=== PATIENT | female | born 1955 | race African-American/Black ===

== ENCOUNTER 2023-11-04 12:38 | Inpatient (IN) | payer MEDICARE, MEDICAID ==
[~2023-11-04] VITALS: Ht 177.8 cm; Wt 70.0 kg
[2023-11-04 15:21] LABS: Basophils # (auto) 0 10 ^3/uL (0-0.2); Basophils % (auto) 0.6 % (0.0-2.0); Eosinophils # (auto) 0.1 10 ^3/uL (0-0.8); Hematocrit 27.4 % (36.0-46.0); Hemoglobin 8.9 g/dL (12.2-16.2); Lymphocytes # (auto) 1.4 10 ^3/uL (0.4-5.4); Mean Corpuscular Hgb Conc. 32.4 g/dL (32.0-36.0); Mean Corpuscular Volume 86.4 fL (80.0-100.0); Monocytes # (auto) 0.4 10 ^3/uL (0-1.3); Monocytes % (auto) 5.6 % (0.0-12.0); Neutrophils # (auto) 5.7 10 ^3/uL (1.6-8.6); Neutrophils % (auto) 74.8 % (37.0-80.0); Nucleated Red Blood Cells % 0.1 %; Red Blood Cells 3.16 10^6/uL (4.0-5.20); Red Cell Distribution Width 17.8 % (11.8-14.3); White Blood Cell 7.6 10^3/uL (4.4-10.8)
[2023-11-04 15:39] LABS: Albumin 3.9 g/dL (3.2-4.8); Alkaline Phosphatase 139 U/L (46-116); Anion Gap 15 (5-15); Aspartate Aminotransferase 15 U/L (13-40); BUN/Creatinine Ratio 5.7 (10.0-20.0); Bilirubin, Total < 0.2 mg/dL (0.2-1.0); Blood Urea Nitrogen 65 mg/dL (9-23); Calcium 9.5 mg/dL (8.5-10.1); Carbon Dioxide 23 mmol/L (20-30); Chloride 100 mmol/L (98-107); Glucose 76 mg/dL (74-106); Potassium 5.3 mmol/L (3.5-5.1); Sodium 138 mmol/L (136-145); Total Protein 7.4 g/dL (5.7-8.2)
[2023-11-04 15:40] LABS: Alanine Aminotransferase < 9 U/L (7-40)
[2023-11-04] MEDS: ONDANSETRON ODT 4 MG TAB PO ONE (15:58)
[2023-11-04] MEDS: DICYCLOMINE HCL (10MG/ML) 2 ML AMPULE IM ONE (15:58)
[2023-11-04] MEDS ORDERED: MORPHINE SULFATE INJ 2 MG/ml SYRG IV PRN (16:15)
[2023-11-04] MEDS ORDERED: ACETAMINOPHEN 325 MG TAB PO PRN (16:15)
[2023-11-04] MEDS ORDERED: NITROGLYCERIN 0.4 MG SL TAB SL PRN (16:15)
[2023-11-04] MEDS: ALBUTEROL SULF 2.5 MG/0.5ML(0.5%) NEB SOLN NEB ONE (16:47)
[2023-11-04] MEDS ORDERED: ONDANSETRON HCL 4 MG/2 ML VIAL IV PRN (17:00)
[2023-11-04 17:50] VITALS: PULSE 91; RESP 17; O2SAT 97
[2023-11-04] MEDS: CALCIUM GLUC 1,000mg/50ml-NS 50 ML IV ONE (18:22)
[2023-11-04] MEDS: DEXTROSE (50%) 50ML SYRG IV ONE (18:23)
[2023-11-04] MEDS: SODIUM BICARB 8.4% 50Meq/50ml SYR Vial IV ONE (18:23)
[2023-11-04] MEDS: FUROSEMIDE 40 MG/4 ML VIAL IV ONE (18:24)
[2023-11-04] MEDS: SODIUM ZIRCONIUM CYCL 10 GM PAK PO ONE (18:24)
[2023-11-04] MEDS: InsuLIN REG 1unit/0.01ml Soln (100units/ml) IV ONE (18:25)
[2023-11-04 18:50] LABS: COVID19 ANTIGEN SOFIA FIA NEGATIVE (NEGATIVE)
[2023-11-04 19:30] VITALS: PULSE 95; RESP 20; O2SAT 96
[2023-11-04] MEDS: HYDROcodone-ACET 5/325MG TAB PO PRN (21:28)
[2023-11-05 06:06] LABS: Basophils # (auto) 0.1 10 ^3/uL (0-0.2); Basophils % (auto) 1.2 % (0.0-2.0); Eosinophils # (auto) 0.2 10 ^3/uL (0-0.8); Eosinophils % (auto) 3.7 % (0.0-7.0); Hematocrit 23.4 % (36.0-46.0); Hemoglobin 7.6 g/dL (12.2-16.2); Lymphocytes % (auto) 30.7 % (10.0-50.0); Mean Corpuscular Hemoglobin 27.9 pg (28.0-32.0); Mean Corpuscular Hgb Conc. 32.4 g/dL (32.0-36.0); Mean Corpuscular Volume 86.2 fL (80.0-100.0); Monocytes # (auto) 0.6 10 ^3/uL (0-1.3); Monocytes % (auto) 9.3 % (0.0-12.0); Neutrophils # (auto) 3.5 10 ^3/uL (1.6-8.6); Neutrophils % (auto) 55.1 % (37.0-80.0); Nucleated Red Blood Cells % 0.1 %; Red Blood Cells 2.71 10^6/uL (4.0-5.20); Red Cell Distribution Width 17.3 % (11.8-14.3); White Blood Cell 6.4 10^3/uL (4.4-10.8)
[2023-11-05 06:15] LABS: Albumin 3.3 g/dL (3.2-4.8); Alkaline Phosphatase 111 U/L (46-116); Anion Gap 11 (5-15); Aspartate Aminotransferase 11 U/L (13-40); BUN/Creatinine Ratio 4.8 (10.0-20.0); Blood Urea Nitrogen 57 mg/dL (9-23); Calcium 8.3 mg/dL (8.7-10.4); Carbon Dioxide 27 mmol/L (20-30); Chloride 99 mmol/L (98-107); Glucose 102 mg/dL (74-106); Potassium 4.8 mmol/L (3.5-5.1); Sodium 137 mmol/L (136-145)
[2023-11-05 06:16] LABS: Bilirubin, Total < 0.2 mg/dL (0.2-1.0); Total Protein 6.6 g/dL (5.7-8.2)
[2023-11-05 06:46] LABS: Alanine Aminotransferase < 9 U/L (7-40)
[2023-11-05 07:35] VITALS: PULSE 91; RESP 12; O2SAT 99
[2023-11-05 09:00] VITALS: BP 132/71; PULSE 87; RESP 15; TEMP 98; O2SAT 99
[2023-11-05 10:00] VITALS: RESP 18
[2023-11-05] MEDS ORDERED: PERCOT PO (12:36)
[2023-11-05] MEDS ORDERED: CLON0.2T PO (12:36)
[2023-11-05] MEDS ORDERED: AMLO1TAB22 PO (12:36)
[2023-11-05] MEDS: HYDROcodone-ACET 5/325MG TAB PO PRN (16:12)
[2023-11-05 17:00] VITALS: BP 133/75; PULSE 87; RESP 18; TEMP 98.1; O2SAT 95
[2023-11-05] MEDS: ONDANSETRON HCL 4 MG/2 ML VIAL IV PRN (17:26)
[2023-11-05 20:00] VITALS: PULSE 85; PULSE 88
[2023-11-05 22:00] VITALS: BP 142/70; PULSE 95; RESP 22; TEMP 98.1; O2SAT 96
[2023-11-06] VITALS (7 sets, daily range): BP systolic 146–152; BP diastolic 71–84; PULSE 88–92; RESP 16–22; TEMP 97.7–98.3; O2SAT 92–94
[2023-11-06 11:08] LABS: Basophils # (auto) 0 10 ^3/uL (0-0.2); Basophils % (auto) 0.7 % (0.0-2.0); Eosinophils # (auto) 0.3 10 ^3/uL (0-0.8); Eosinophils % (auto) 5.5 % (0.0-7.0); Hematocrit 26.5 % (36.0-46.0); Hemoglobin 8.5 g/dL (12.2-16.2); Lymphocytes # (auto) 1.4 10 ^3/uL (0.4-5.4); Lymphocytes % (auto) 22.8 % (10.0-50.0); Mean Corpuscular Hemoglobin 28.2 pg (28.0-32.0); Mean Corpuscular Hgb Conc. 32.1 g/dL (32.0-36.0); Mean Corpuscular Volume 87.8 fL (80.0-100.0); Monocytes # (auto) 0.5 10 ^3/uL (0-1.3); Monocytes % (auto) 8.5 % (0.0-12.0); Neutrophils # (auto) 3.8 10 ^3/uL (1.6-8.6); Neutrophils % (auto) 62.5 % (37.0-80.0); Nucleated Red Blood Cells % 0.1 %; Red Blood Cells 3.02 10^6/uL (4.0-5.20); Red Cell Distribution Width 17.8 % (11.8-14.3); White Blood Cell 6.1 10^3/uL (4.4-10.8)
[2023-11-06] MEDS: SODIUM CHL 0.9% 1000 ML BAG XX ONE (11:45)
[2023-11-07] VITALS (9 sets, daily range): BP systolic 142–159; BP diastolic 77–89; PULSE 87–97; RESP 16–17; TEMP 97.6–98.6; O2SAT 93–98
[2023-11-07 09:08] LABS: Hepatitis B Surface Antigen Negative (Negative)
[2023-11-07 09:29] LABS: Hepatitis A Ab IgM Negative
[2023-11-07 09:30] LABS: Hepatitis B Core IgM Negative; Hepatitis C Antibody Negative (Negative)
[2023-11-08] VITALS (9 sets, daily range): BP systolic 143–159; BP diastolic 76–88; PULSE 75–96; RESP 16–18; TEMP 97.6–98.4; O2SAT 93–100
[2023-11-08] MEDS: amLODIPine BESYLATE 5 MG TAB PO ONE (10:00)
[2023-11-08] MEDS ORDERED: amLODIPine BESYLATE 5 MG TAB PO SCH (10:00)
[2023-11-08 11:08] LABS: Basophils # (auto) 0 10 ^3/uL (0-0.2); Basophils % (auto) 0.8 % (0.0-2.0); Eosinophils # (auto) 0.2 10 ^3/uL (0-0.8); Hematocrit 26.9 % (36.0-46.0); Lymphocytes # (auto) 1.3 10 ^3/uL (0.4-5.4); Lymphocytes % (auto) 26.5 % (10.0-50.0); Mean Corpuscular Hemoglobin 28.5 pg (28.0-32.0); Mean Corpuscular Hgb Conc. 33.5 g/dL (32.0-36.0); Mean Corpuscular Volume 84.9 fL (80.0-100.0); Monocytes # (auto) 0.4 10 ^3/uL (0-1.3); Monocytes % (auto) 7.3 % (0.0-12.0); Neutrophils % (auto) 60.4 % (37.0-80.0); Nucleated Red Blood Cells % 0.1 %; Red Blood Cells 3.17 10^6/uL (4.0-5.20); Red Cell Distribution Width 17.2 % (11.8-14.3); White Blood Cell 4.9 10^3/uL (4.4-10.8)
[2023-11-08 11:21] LABS: Albumin 3.5 g/dL (3.2-4.8); Alkaline Phosphatase 116 U/L (46-116); Anion Gap 8 (5-15); Aspartate Aminotransferase 13 U/L (13-40); BUN/Creatinine Ratio 5.2 (10.0-20.0); Bilirubin, Total < 0.2 mg/dL (0.2-1.0); Blood Urea Nitrogen 59 mg/dL (9-23); Calcium 9.2 mg/dL (8.5-10.1); Carbon Dioxide 28 mmol/L (20-30); Chloride 99 mmol/L (98-107); Glucose 95 mg/dL (74-106); Potassium 4.9 mmol/L (3.5-5.1); Sodium 135 mmol/L (136-145); Total Protein 6.7 g/dL (5.7-8.2)
[2023-11-08 11:33] LABS: Alanine Aminotransferase < 9 U/L (7-40)
[2023-11-08] MEDS: SODIUM CHL 0.9% 1000 ML BAG XX ONE (14:00)
[2023-11-08] MEDS: OXYCODONE W/ ACETAMINOPHEN 5/325MG TABLET PO PRN (14:09)
[2023-11-08] MEDS: cloNIDine HCL 0.1 MG TAB PO SCH (22:14)
[2023-11-08] MEDS: EPOETIN ALFA-EPBX 10,000 UNIT/1ML VIAL SC ONE (22:15)
[2023-11-09 04:44] LABS: COVID19 ANTIGEN SOFIA FIA NEGATIVE (NEGATIVE)
[2023-11-09 05:00] VITALS: BP 150/82; PULSE 84; RESP 18; TEMP 98.4; O2SAT 98
[2023-11-09 08:00] VITALS: PULSE 89
[2023-11-09 08:03] VITALS: O2SAT 95
[2023-11-09] MEDS: amLODIPine BESYLATE 5 MG TAB PO SCH (08:33)
[2023-11-09] MEDS: LACTULOSE 20Gm/30ML SOLN PO ONE (10:24)
[2023-11-09 12:31] VITALS: BP 125/62; PULSE 80; RESP 19; TEMP 98; O2SAT 100
[2023-11-09 17:06] VITALS: BP 136/76; PULSE 83; RESP 19; TEMP 98.2; O2SAT 98
[2023-11-09 22:00] VITALS: BP 153/84; PULSE 85; RESP 17; TEMP 98.3; O2SAT 97
[2023-11-10 05:00] VITALS: BP 153/88; PULSE 82; RESP 17; TEMP 98.1; O2SAT 97
[2023-11-10 08:00] VITALS: PULSE 88; RESP 18; O2SAT 98
[2023-11-10 08:05] VITALS: BP 160/90; PULSE 88; RESP 20; TEMP 98.4; O2SAT 98
[2023-11-10 12:05] VITALS: BP 150/86; PULSE 86; RESP 20; TEMP 98.2; O2SAT 99
[2023-11-10 16:05] VITALS: BP 143/76; PULSE 82; RESP 20; TEMP 98.9; O2SAT 97
[2023-11-10 20:00] VITALS: PULSE 82; RESP 18; O2SAT 98
== END 2023-11-10 20:27 | DRG 640 ==
LOC: ER 12:38 → TELE 16:17 → TELE-CENTR 11-05 10:02
PROVIDERS: ADMIT Nurse Practitioner Family; ATTEND Family Medicine
PROC: 5A1D70Z Performance of Urinary Filtration, Intermittent, Less than 6 Hours Per Day (ICD-10-PCS; principal; 2023-11-06)
PROC: 5A1D70Z Performance of Urinary Filtration, Intermittent, Less than 6 Hours Per Day (ICD-10-PCS; 2023-11-08)
PROC: 5A1D70Z Performance of Urinary Filtration, Intermittent, Less than 6 Hours Per Day (ICD-10-PCS; 2023-11-10)
DX: E87.5 Hyperkalemia (principal); N18.6 End stage renal disease; I13.2 Hypertensive heart and chronic kidney disease with heart failure and with stage 5 chronic kidney disease, or end stage renal disease; N25.81 Secondary hyperparathyroidism of renal origin; E86.0 Dehydration; K52.9 Noninfective gastroenteritis and colitis, unspecified; Z99.2 Dependence on renal dialysis; D63.1 Anemia in chronic kidney disease; Z20.822 Contact with and (suspected) exposure to COVID-19; M19.90 Unspecified osteoarthritis, unspecified site; Z96.651 Presence of right artificial knee joint; I50.9 Heart failure, unspecified; M54.2 Cervicalgia; G89.29 Other chronic pain; M75.101 Unspecified rotator cuff tear or rupture of right shoulder, not specified as traumatic
CPT/HCPCS: 36415; 71045; 80053; 80074; 82962; 84132; 84484; 85025; 87081; 87426; 90935; 93005; 94640; 97110; 97116; 97163; 97530; 99291; G0378; J1642; J1815; J2405; Q0162

== ENCOUNTER 2024-09-22 18:42 | Emergency (ER) | payer MEDICARE, MEDICAID ==
[~2024-09-22] VITALS: Ht 177.8 cm; Wt 65.5 kg
[~2024-09-22 18:42] MED LIST: AMLO1TAB22 PO; CLON0.2T PO; PERCOT PO
--- NOTE | 2024-09-22 18:58 | ED.PDOC ---
HPI Comments 69 year old female brought in by EMS presents to the ED with a chief complaint of chest pain onset today. Per EMS, patient was at [facility] when she began experiencing chest pain as well as shortness of breath and headache. Upon EMS arrival patient's BP was 220/110, patient was given Aspirin and Nitro and BP was 171/93. Past medical history of ESRD, CVA, HTN, CKF. Denies dizziness, abdominal pain, nausea, vomiting, diarrhea, dysuria, hematuria. No other symptoms or modifying factors present at this time. Time Seen by MD: 18:50 Primary Care Provider: STEFANY Welch Notes: Medications, Allergies Allergies: Coded Allergies: NO KNOWN ALLERGIES (Unverified , 11/04/23) Home Meds Active Scripts Gabapentin (Once-Daily) (Gabapentin) 300 Mg Tab, 300 MG PO Q6HP PRN for 10 Days, #40 TAB Prov:TITA ALMAGUER MD 09/22/24 Clonidine Hydrochloride (Clonidine Hcl) 0.2 Mg Tab, 1 TAB PO BIDP PRN, #20 TAB 0 Refills Prov:SHANEL PATRICIA PAC 12/14/23 Reported Medications Oxycodone W/ Acetaminophen (Percocet 5/325MG) 1 Tab Tb, 1 TAB PO 6XD for pain, TAB 11/05/23 Clonidine Hydrochloride (Clonidine Hcl) 0.2 Mg Tab, 0.2 MG PO TID, TAB 11/05/23 Amlodipine Besylate (Amlodipine Besylate) 5 Mg Tab, 10 MG PO DAILY for 30 Days, MG 11/05/23 Information Source: Patient, Emergency Med Personnel Mode of Arrival: EMS Severity: Moderate Timing: Hours Duration: Since onset Prehospital treatment: Other (Aspirin, Nitro) Location: Chest (L) Radiation: No Radiation Quality: Sharp Cardiac Risk Factors: HTN PE Risk Factors: None History of: None Modifying Factors: Nothing Associated Signs and Symptoms: SOB Past Medical History PAST MEDICAL HISTORY: CKF, CVA, ESRD, HTN Surgical History: Denies all surgeries FINANCE TEACHER History: No Pertinent FINANCE TEACHER History Family History Family History: Unknown Social History Smoker: Non-Smoker Alcohol: Denies ETOH Use Drugs: Denies Drug Use Lives In: Home Constitutional: denies: chills, diaphoresis, fatigue, fever, malaise, sweats, weakness, others EENTM: denies: blurred vision, double vision, ear bleeding, ear discharge, ear drainage, ear pain, ear ringing, eye pain, eye redness, hearing loss, mouth pain, mouth swelling, nasal discharge, nose bleeding, nose congestion, nose pain, photophobia, tearing, throat pain, throat swelling, voice changes, others Respiratory: reports: shortness of breath; denies: cough, hemoptysis, orthopnea, SOB at rest, SOB with excertion, stridor, wheezing, others Cardiovascular: reports: chest pain; denies: dizzy spells, diaphoresis, Dyspnea on exertion, edema, irregular heart beat, left arm pain, lightheadedness, palpit ations, PND, syncope, others Gastrointestinal: denies: abdomen distended, abdominal pain, blood streaked b owels, constipated, diarrhea, dysphagia, difficulty swallowing, hematemesis, melena, nausea, poor appetite, poor fluid intake, rectal bleeding, rectal pain, vomiting, others Genitourinary: denies: abnormal vagina bleeding, burning, dyspareunia, dysuria, flank pain, frequency, hematuria, incontinence, pain, , vagina discharge, urgency, others Neurological: reports: headache; denies: dizziness, fainting, left sided numbness, left sided weakness, numbness, paresthesia, pre-existing deficit, right sided numbness, right sided weakness, seizure, speech problems, tingling, tremors, weakness, others Musculoskeletal: denies: back pain, gout, joint pain, joint swelling, muscle pain, muscle stiffness, neck pain, others Integumetry: denies: bruises, change in color, change in hair/nails, dryness, laceration, lesions, lumps, rash, wounds, others Allergic/Immunocompromised: denies: Difficulty Healing, Frequent Infections, Hives, Itching, others Hematologic/Lymphatic: denies: anemia, blood clots, easy bleeding, easy bruising, swollen glands, others Endocrine: denies: excessive hunger, excessive sweating, excessive thirst, excessive urination, flushing, intolerance to cold, intolerance to heat, unexplained weight gain, unexplained weight loss, others Psychiatric: denies: anxiety, bipolar disorder, depression, hopeless, panic disorder, schizophrenia, sleepless, suicidal, others All Other Systems: Reviewed and Negative Physical Exam General Appearance: Mild Distress HEENT: Normal ENT Inspection, Pharynx Normal, TMs Normal Neck: Full Range of Motion, Non-Tender, Normal, Normal Inspection Respiratory: Chest Non-Tender, Lungs Clear, No Accessory Muscle Use, No Respiratory Distress, Normal Breath Sounds Cardiovascular: Regular Rate/Rhythm, Other (dialysis catheter right chest) Breast Exam: Deferred Gastrointestinal: No Organomegaly, Non Tender, No Pulsatile Mass, Normal Bowel Sounds, Soft Genitalia: Deferred Pelvic: Deferred Rectal: Deferred Extremities: No calf tenderness, Normal capillary refill, Normal inspection, Normal range of motion, Non-tender, No pedal edema Musculoskeletal : Apperance: Normal Neurologic: Alert, sole tacker II-XII nml as Tested, No Motor Deficits, Normal Affect, Normal Mood, No Sensory Deficits Cerebellar Function: Normal Reflexes: Normal Skin: Dry, Normal Color, Warm Lymphatic: No Adenopathy Was a procedure done? Was a procedure done?: No CP Differential Dx Differential Diagnosis: A-fib, A-Flutter, Angina, Heart Failure, Hypoxia, AL, Other Differential Diagnosis: CHF X-Ray, Labs, Meds, VS Vital Signs Date Time Temp Pulse Resp B/P (MAP) Pulse Ox O2 Delivery O2 Flow Rate FiO2 09/22/24 23:00 99.1 78 16 144/79 (100) 98 99.1 09/22/24 21:22 98.3 82 18 154/78 (103) 98 98.3 09/22/24 19:15 98.2 85 20 161/97 (118) 99 09/22/24 18:44 82 Lab Test 09/22/24 21:15 09/22/24 20:19 Range/Units Troponin I High Sensitivity 20 21 </=34 ng/L White Blood Count 5.6 4.4-10.8 10^3/uL Red Blood Count 3.54 L 4.0-5.20 10^6/uL Hemoglobin 9.9 L 12.2-16.2 g/dL Hematocrit 30.5 L 36.0-46.0 % Mean Corpuscular Volume 86.3 80.0-100.0 fL Mean Corpuscular Hemoglobin 27.9 L 28.0-32.0 pg Mean Corpuscular Hemoglobin Concent 32.3 32.0-36.0 g/dL Red Cell Distribution Width 18.3 H 11.8-14.3 % Platelet Count 164 140-450 10^3/uL Mean Platelet Volume 7.5 6.9-10.8 fL Neutrophils (%) (Auto) 63.2 37.0-80.0 % Lymphocytes (%) (Auto) 21.1 10.0-50.0 % Monocytes (%) (Auto) 7.6 0.0-12.0 % Eosinophils (%) (Auto) 7.6 H 0.0-7.0 % Basophils (%) (Auto) 0.5 0.0-2.0 % Neutrophils # (Auto) 3.5 1.6-8.6 10 ^3/uL Lymphocytes # (Auto) 1.2 0.4-5.4 10 ^3/uL Monocytes # (Auto) 0.4 0-1.3 10 ^3/uL Eosinophils # (Auto) 0.4 0-0.8 10 ^3/uL Basophils # (Auto) 0 0-0.2 10 ^3/uL Nucleated Red Blood Cells 0.1 % Sodium Level 139 136-145 mmol/L Potassium Level 4.3 3.5-5.1 mmol/L Chloride Level 102 98-107 mmol/L Carbon Dioxide Level 27 20-31 mmol/L Anion Gap 10 5-15 Blood Urea Nitrogen 24 H 9-23 mg/dL Creatinine 3.82 H 0.550-1.02 mg/dL Glomerular Filtration Rate Calc 12 >90 mL/min BUN/Creatinine Ratio 6.3 L 10.0-20.0 Serum Glucose 77 74-106 mg/dL Calcium Level 8.7 8.7-10.4 mg/dL Total Bilirubin 0.3 0.2-1.0 mg/dL Aspartate Amino Transferase (AST) 11 L 13-40 U/L Alanine Aminotransferase (ALT) < 9 7-40 U/L Alkaline Phosphatase 350 H 46-116 U/L B-Type Natriuretic Peptide 1267.57 0-100 pg/mL Total Protein 6.9 5.7-8.2 g/dL Albumin 4.0 3.2-4.8 g/dL Current Medications Medications (Trade) Dose Ordered Sig/[place] Route Start Time Stop Time Status Last Admin Oxycodone HCl 10 mg ONCE PRN PO 09/22/24 19:00 09/22/24 21:18 Time of 1ST Reevaluation: 19:20 Reevaluation 1ST: Unchanged Time of 2ND Reevaluation: 21:00 Reevaluation 2ND: Improved Patient Education/Counseling: Diagnosis, Treatment, Prognosis Family Education/Counseling: No Family Present Additional Information I reviewed the following notes from patient's past medical encounters: The following tests were ordered, and results were reviewed by me: TROP, CBC, CMP, BNP, TROP, TROP, EKG Additional Information was gathered from interviewing the following independent historians: EMS I discussed treatment and results with medical personnel and: patient Departure 1 Departure Time of Disposition: 21:30 Impression: Primary Impression: Atypical chest pain Additional Impression: Chronic renal disease Disposition: HOME / SELF CARE / HOMELESS Condition: Stable e-Prescriptions Gabapentin (Once-Daily) (Gabapentin) 300 Mg Tab 300 MG PO Q6HP PRN for 10 Days, #40 TAB Prov: TITA ALMAGUER MD 09/22/24 Discharged With: Self Critical Care Note Critical Care Time?: No Stability Stability form required: No Heart Score Heart Score: Heart Score Response (Comments) Value History Slightly Suspicious 0 EKG Normal 0 Age >65 2 Risk Factors 1 or 2 risk factors 1 Troponin Normal limit 0 Total 3 I personally scribed for TITA ALMAGUER MD ([email or web address]) on 09/22/24 at 18:58. Electronically submitted by Vi Mercado ([email or web address]). I personally scribed for TITA ALMAGUER MD ([email or web address]) on 09/22/24 at 18:59. Electronically submitted by Vi Mercado ([email or web address]). TITA ALMAGUER MD Sep 22, 2024 18:58
--- NOTE | 2024-09-22 19:15 | ECG ---
[facility] Test Date: 2024-09-22 Test Time: 18:44:21 Pat Name: KANDI BELLA Department: ED Room: Gender: F Program Rep: ISABELA : 1955 Requested By: TITA ALMAGUER Order Number: [id number] Reading MD: Timoteo Mcgregor Measurements Intervals [place] Rate: 82 P: -57 NV: 155 QRS: -48 QRSD: 90 T: 50 QT: 407 QTc: 476 Interpretive Statements Sinus or ectopic atrial rhythm Ventricular premature complex Left anterior fascicular block Anteroseptal infarct, age indeterminate Lateral leads are also involved Electronically Signed On 09-23-2024 14:17:04 PST by Timoteo Mcgregor Please click the below link to view image of tracing.
[2024-09-22 20:33] LABS: Basophils # (auto) 0 10 ^3/uL (0-0.2); Basophils % (auto) 0.5 % (0.0-2.0); Eosinophils # (auto) 0.4 10 ^3/uL (0-0.8); Eosinophils % (auto) 7.6 % (0.0-7.0); Hematocrit 30.5 % (36.0-46.0); Hemoglobin 9.9 g/dL (12.2-16.2); Lymphocytes # (auto) 1.2 10 ^3/uL (0.4-5.4); Lymphocytes % (auto) 21.1 % (10.0-50.0); Mean Corpuscular Hemoglobin 27.9 pg (28.0-32.0); Mean Corpuscular Hgb Conc. 32.3 g/dL (32.0-36.0); Mean Corpuscular Volume 86.3 fL (80.0-100.0); Monocytes # (auto) 0.4 10 ^3/uL (0-1.3); Monocytes % (auto) 7.6 % (0.0-12.0); Neutrophils # (auto) 3.5 10 ^3/uL (1.6-8.6); Neutrophils % (auto) 63.2 % (37.0-80.0); Nucleated Red Blood Cells % 0.1 %; Platelet Count (auto) 164 10^3/uL (140-450); Red Blood Cells 3.54 10^6/uL (4.0-5.20); Red Cell Distribution Width 18.3 % (11.8-14.3); White Blood Cell 5.6 10^3/uL (4.4-10.8)
[2024-09-22 20:48] LABS: Anion Gap 10 (5-15); BUN/Creatinine Ratio 6.3 (10.0-20.0); Calcium 8.7 mg/dL (8.7-10.4); Carbon Dioxide 27 mmol/L (20-31); Chloride 102 mmol/L (98-107); Glucose 77 mg/dL (74-106); Potassium 4.3 mmol/L (3.5-5.1); Sodium 139 mmol/L (136-145); Total Protein 6.9 g/dL (5.7-8.2)
[2024-09-22 21:07] LABS: Alanine Aminotransferase < 9 U/L (7-40); Alkaline Phosphatase 350 U/L (46-116); Aspartate Aminotransferase 11 U/L (13-40); Bilirubin, Total 0.3 mg/dL (0.2-1.0); Blood Urea Nitrogen 24 mg/dL (9-23)
[2024-09-22] MEDS: oxyCODONE HCL 5MG TAB PO PRN (21:18)
[2024-09-22] MEDS ORDERED: GABA300T4 PO (22:09)
[2024-09-22 23:00] VITALS: BP 144/79; PULSE 78; RESP 16; TEMP 99.1; O2SAT 98
== END 2024-09-23 01:06 | disposition home or self-care (01) ==
LOC: ER 18:42 → EDBD 18:42 → ER 09-23 01:06
DX: R07.89 Other chest pain (principal); I12.0 Hypertensive chronic kidney disease with stage 5 chronic kidney disease or end stage renal disease; N18.6 End stage renal disease; Z79.899 Other long term (current) drug therapy; Z86.73 Personal history of transient ischemic attack (TIA), and cerebral infarction without residual deficits
CPT/HCPCS: 36415; 80053; 83880; 84484; 85025; 93005

== ENCOUNTER 2025-03-02 13:41 | Inpatient (IN) | payer MEDICARE, MEDICAID ==
[~2025-03-02] VITALS: Ht 177.8 cm; Wt 66.4 kg
[~2025-03-02 13:41] MED LIST changes: +GABA300T4 PO
[2025-03-02] MEDS: dilTIAZem 25 MG/5 ML VIAL IV ONE (14:00)
[2025-03-02 14:29] LABS: Basophils # (auto) 0 10 ^3/uL (0-0.2); Basophils % (auto) 0.6 % (0.0-2.0); Eosinophils # (auto) 0.5 10 ^3/uL (0-0.8); Eosinophils % (auto) 11.7 % (0.0-7.0); Hematocrit 30.1 % (36.0-46.0); Lymphocytes # (auto) 1.2 10 ^3/uL (0.4-5.4); Lymphocytes % (auto) 27.7 % (10.0-50.0); Mean Corpuscular Hemoglobin 28.7 pg (28.0-32.0); Mean Corpuscular Hgb Conc. 33.1 g/dL (32.0-36.0); Mean Corpuscular Volume 86.5 fL (80.0-100.0); Monocytes # (auto) 0.5 10 ^3/uL (0-1.3); Monocytes % (auto) 10.3 % (0.0-12.0); Neutrophils # (auto) 2.2 10 ^3/uL (1.6-8.6); Neutrophils % (auto) 49.7 % (37.0-80.0); Nucleated Red Blood Cells % 0.1 %; Platelet Count (auto) 187 10^3/uL (140-450); Red Blood Cells 3.48 10^6/uL (4.0-5.20); Red Cell Distribution Width 16.8 % (11.8-14.3); White Blood Cell 4.5 10^3/uL (4.4-10.8)
[2025-03-02 14:32] LABS: Chloride 98 mmol/L (98-107); Sodium 140 mmol/L (136-145)
[2025-03-02 14:33] LABS: Anion Gap 17 (5-15); Calcium 9.4 mg/dL (8.7-10.4); Carbon Dioxide 25 mmol/L (20-31)
[2025-03-02 14:38] LABS: BUN/Creatinine Ratio 9.4 (10.0-20.0); Glucose 93 mg/dL (74-106)
[2025-03-02 14:40] LABS: Blood Urea Nitrogen 60 mg/dL (9-23)
--- NOTE | 2025-03-02 15:31 | ED.PDOC ---
HPI Comments 69 year old female DUNG presents to the ED with chief complaint of chest pain. EMS reports patient is coming from her dialysis center when prior to her dialysis being performed, she started to experience chest pain with associated palpitations 30 minutes ago. EMS relays that the patient's HR has been elevated in the 160s on route and now patient has 7/10 chest pressure with associated headache, SOB, and lightheadedness. Patient denies any nausea, vomiting, dizziness, fever, or chills. Chief Complaint: Chest Pain Time Seen by MD: 15:30 Primary Care Provider: STEFANY Welch Notes: Nurses Notes, Legal Services Manager Notes, Medications, Allergies Allergies: Coded Allergies: NO KNOWN ALLERGIES (Unverified , 11/04/23) Home Meds Active Scripts Gabapentin (Once-Daily) (Gabapentin) 300 Mg Tab, 300 MG PO Q6HP PRN for 10 Days, #40 TAB Prov:TITA ALMAGUER MD 09/22/24 Clonidine Hydrochloride (Clonidine Hcl) 0.2 Mg Tab, 1 TAB PO BIDP PRN, #20 TAB 0 Refills Prov:SHANEL PATRICIA PAC 12/14/23 Reported Medications Oxycodone W/ Acetaminophen (Percocet 5/325MG) 1 Tab Tb, 1 TAB PO 6XD for pain, TAB 11/05/23 Clonidine Hydrochloride (Clonidine Hcl) 0.2 Mg Tab, 0.2 MG PO TID, TAB 11/05/23 Amlodipine Besylate (Amlodipine Besylate) 5 Mg Tab, 10 MG PO DAILY for 30 Days, MG 11/05/23 Information Source: Patient, Emergency Med Personnel Mode of Arrival: EMS Severity: Moderate Timing: Hours Duration: Since onset Prehospital treatment: None Location: Chest (L) Radiation: No Radiation Quality: Pressure Onset: At Rest Cardiac Risk Factors: HTN PE Risk Factors: None History of: None Associated Signs and Symptoms: SOB Past Medical History PAST MEDICAL HISTORY: CKF, CVA, ESRD, HTN Past Medical History (Other): PACs Surgical History: Surgical History (Other): Elbow surgery FREIGHT CONDUCTOR History: No Pertinent FREIGHT CONDUCTOR History Family History Family History: Reviewed,noncontributory to illness Social History Smoker: Non-Smoker Alcohol: Denies ETOH Use Drugs: Denies Drug Use Lives In: Home Constitutional: denies: chills, diaphoresis, fatigue, fever, malaise, sweats, weakness, others EENTM: denies: blurred vision, double vision, ear bleeding, ear discharge, ear drainage, ear pain, ear ringing, eye pain, eye redness, hearing loss, mouth pain, mouth swelling, nasal discharge, nose bleeding, nose congestion, nose pain, photophobia, tearing, throat pain, throat swelling, voice changes, others Respiratory: reports: shortness of breath; denies: cough, hemoptysis, orthopnea, SOB at rest, SOB with excertion, stridor, wheezing, others Cardiovascular: reports: chest pain, lightheadedness; denies: dizzy spells, diaphoresis, Dyspnea on exertion, edema, irregular heart beat, left arm pain, palpitations, PND, syncope, others Gastrointestinal: denies: abdomen distended, abdominal pain, blood streaked bowels, constipated, diarrhea, dysphagia, difficulty swallowing, hematemesis, melena, nausea, poor appetite, poor fluid intake, rectal bleeding, rectal pain, vomiting, others Genitourinary: denies: abnormal vagina bleeding, burning, dyspareunia, dysuria, flank pain, frequency, hematuria, incontinence, pain, , vagina discharge, urgency, others Neurological: reports: headache; denies: dizziness, fainting, left sided numbness, left sided weakness, numbness, paresthesia, pre-existing deficit, right sided numbness, right sided weakness, seizure, speech problems, tingling, tremors, weakness, others Musculoskeletal: denies: back pain, gout, joint pain, joint swelling, muscle pain, muscle stiffness, neck pain, others Integumetry: denies: bruises, change in color, change in hair/nails, dryness, laceration, lesions, lumps, rash, wounds, others Allergic/Immunocompromised: denies: Difficulty Healing, Frequent Infections, Hives, Itching, others Hematologic/Lymphatic: denies: anemia, blood clots, easy bleeding, easy bruising, swollen glands, others Endocrine: denies: excessive hunger, excessive sweating, excessive thirst, excessive urination, flushing, intolerance to cold, intolerance to heat, unexplained weight gain, unexplained weight loss, others Psychiatric: denies: anxiety, bipolar disorder, depression, hopeless, panic disorder, schizophrenia, sleepless, suicidal, others All Other Systems: Reviewed and Negative Physical Exam General Appearance: No Apparent Distress HEENT: Other (Pupils and face symmetric. Moist mucous membranes.) Neck: Full Range of Motion, Normal Inspection Respiratory: Lungs Clear, No Accessory Muscle Use, No Respiratory Distress, Normal Breath Sounds Cardiovascular: No Edema, No JVD, Tachycardia Breast Exam: Deferred Gastrointestinal: Non Tender, Soft Genitalia: Deferred Pelvic: Deferred Rectal: Deferred Extremities: Normal inspection, Normal range of motion, Non-tender, No pedal edema Neurologic: Alert (Oriented x4), Normal Affect, Normal Mood Cerebellar Function: NOT DONE Reflexes: NOT DONE Skin: Dry, Normal Color, Wounds Lymphatic: NOT DONE EKG EKG #1: Comments SVT, rate 168, normal QRS interval, QTC 497, left axis deviation, possible old anteroseptal infarct, nonspecific T change. EKG #2: Comments Sinus rhythm, rate 89, normal AR and QRS intervals, QTC prolonged at 491, left axis deviation, normal QRS, nonspecific T change. Was a procedure done? Was a procedure done?: No CP Differential Dx Differential Diagnosis: A-fib, A-Flutter, Angina, Heart Failure, [place], PSVT Differential Diagnosis: Angina, Chest Wall Pain, Esophageal reflux/spasm, Gastritis, Pericarditis, Pneumonia, Pulmonary Embolus X-Ray, Labs, Meds, VS Vital Signs Date Time Temp Pulse Resp B/P (MAP) Pulse Ox O2 Delivery O2 Flow Rate FiO2 03/02/25 18:35 98.7 77 16 112/66 (81) 99 98.7 03/02/25 15:00 98.0 86 18 98/56 (70) 98 98.0 03/02/25 14:42 89 03/02/25 13:48 97.7 180 18 137/98 (111) 97 97.7 03/02/25 13:47 168 Lab Test 03/02/25 16:54 03/02/25 15:09 03/02/25 13:56 Range/Units Troponin I High Sensitivity 32 23 20 </=34 ng/L White Blood Count 4.5 4.4-10.8 10^3/uL Red Blood Count 3.48 L 4.0-5.20 10^6/uL Hemoglobin 10.0 L 12.2-16.2 g/dL Hematocrit 30.1 L 36.0-46.0 % Mean Corpuscular Volume 86.5 80.0-100.0 fL Mean Corpuscular Hemoglobin 28.7 28.0-32.0 pg Mean Corpuscular Hemoglobin Concent 33.1 32.0-36.0 g/dL Red Cell Distribution Width 16.8 H 11.8-14.3 % Platelet Count 187 140-450 10^3/uL Mean Platelet Volume 8.4 6.9-10.8 fL Neutrophils (%) (Auto) 49.7 37.0-80.0 % Lymphocytes (%) (Auto) 27.7 10.0-50.0 % Monocytes (%) (Auto) 10.3 0.0-12.0 % Eosinophils (%) (Auto) 11.7 H 0.0-7.0 % Basophils (%) (Auto) 0.6 0.0-2.0 % Neutrophils # (Auto) 2.2 1.6-8.6 10 ^3/uL Lymphocytes # (Auto) 1.2 0.4-5.4 10 ^3/uL Monocytes # (Auto) 0.5 0-1.3 10 ^3/uL Eosinophils # (Auto) 0.5 0-0.8 10 ^3/uL Basophils # (Auto) 0 0-0.2 10 ^3/uL Nucleated Red Blood Cells 0.1 % Sodium Level 140 136-145 mmol/L Potassium Level 4.0 3.5-5.1 mmol/L Chloride Level 98 98-107 mmol/L Carbon Dioxide Level 25 20-31 mmol/L Anion Gap 17 H 5-15 Blood Urea Nitrogen 60 H 9-23 mg/dL Creatinine 6.37 H 0.550-1.02 mg/dL Glomerular Filtration Rate Calc 7 >90 mL/min BUN/Creatinine Ratio 9.4 L 10.0-20.0 Serum Glucose 93 74-106 mg/dL Calcium Level 9.4 8.7-10.4 mg/dL B-Type Natriuretic Peptide 213.92 0-100 pg/mL Current Medications Medications (Trade) Dose Ordered Sig/[place] Route Start Time Stop Time Status Last Admin Aspirin 325 mg ONCE ONCE PO 03/02/25 15:30 03/02/25 15:31 DC 03/02/25 15:32 Acetaminophen/ Hydrocodone Bitart ([place] 5/325MG Tab) 1 tab ONCE ONCE PO 03/02/25 15:30 03/02/25 15:31 DC 03/02/25 15:33 X-Ray, Labs, Meds, VS Comment 69-year-old female with a history of hypertension, end-stage renal disease on dialysis, PACs complaining of chest pain and palpitations associated with lightheadedness and shortness of breath Vitals remarkable for initial heart rate of 168, current blood pressure of 98/56 Rhythm strip independently interpreted by me: SVT at a rate of 168 Chest x-ray Labs essentially unremarkable, BNP 213.92, 1st troponin negative Patient treated with the following in the ED: Aspirin 325 mg p.o., [place] 5/325 mg p.o. Patient converted to a sinus rhythm without intervention. Plan is to admit the patient for ongoing serial troponins and Cardiology evaluation. Patient is also due for dialysis today. Time of 1ST Reevaluation: 16:29 Reevaluation 1ST: Unchanged Patient Education/Counseling: Diagnosis, Treatment Family Education/Counseling: No Family Present Departure 1 Departure Time of Disposition: 15:54 Impression: Primary Impression: SVT (supraventricular tachycardia) Additional Impression: Acute chest pain Disposition: 09 ADMITTED INPATIENT Admit to: Tele Condition: Guarded Critical Care Note Critical Care Time?: No Stability Stability form required: No Heart Score Heart Score: Heart Score Response (Comments) Value History Highly Suspicious 2 EKG Repolarization Disturb 1 Age >65 2 Risk Factors >3 or Hx ASHD 2 Troponin Normal limit 0 Total 7 I personally scribed for MERLIN CRESPO MD ([email or web address]) on 03/02/25 at 15:31. Electronically submitted by Rodolfo Lagunas ([email or web address]). MERLIN CRESPO MD Mar 02, 2025 15:31
[2025-03-02] MEDS: ASPirin 325 MG TAB PO ONE (15:32)
[2025-03-02] MEDS: HYDROcodone-ACET 5/325MG TAB PO ONE (15:33)
--- NOTE | 2025-03-02 15:48 | DVH ---
EXAM: XY CHEST PORTABLE TECHNIQUE: Single frontal chest radiograph CLINICAL HISTORY: tachy COMPARISON: XY CHEST XRAY 1 VIEW on DOS: 11/04/23 Findings/Impression: Frontal chest radiograph demonstrates no acute osseous or superficial soft tissue abnormalities. Tunn eled right-sided HD catheter terminates in the right atrium. The trachea is midline. The cardiac silhouette and mediastinum are within normal limits. Bibasilar airspace opacities, improved from prior. No pneumothorax.
--- NOTE | 2025-03-02 16:10 | ECG ---
[facility] Test Date: 2025-03-02 Test Time: 14:42:44 Pat Name: KANDI BELLA Department: ED Room: 0249T Gender: F Housekeeping Associate: DR VERONICA: 1955 Requested By: MERLIN CUI Order Number: [id number] Reading MD: Timoteo Mcgregor Measurements Intervals [place] Rate: 89 P: 46 WV: 149 QRS: -38 QRSD: 92 T: 68 QT: 403 QTc: 491 Interpretive Statements Sinus rhythm Abnormal R-wave progression, late transition Left ventricular hypertrophy ST elevation, consider inferior injury Borderline prolonged QT interval Electronically Signed On 03-06-2025 20:48:56 PDT by Timoteo Mcgregor Please click the below link to view image of tracing.
--- NOTE | 2025-03-02 19:11 | ECG ---
[facility] Test Date: 2025-03-02 Test Time: 13:47:32 Pat Name: KANDI BELLA Department: ED Room: 0249T Gender: F Medical Insurance Claims Specialist: dr VERONICA: 1955 Requested By: MERLIN CUI Order Number: [id number] Reading MD: Timoteo Mcgregor Measurements Intervals [place] Rate: 168 P: 0 MI: 53 QRS: -43 QRSD: 85 T: 118 QT: 297 QTc: 497 Interpretive Statements Supraventricular tachycardia Multiple premature complexes, vent & supraven Left anterior fascicular block Probable LVH with secondary repol abnrm Anterior Q waves, possibly due to LVH Baseline wander in lead(s) II,III,aVF,V1,V2,V3 Electronically Signed On 03-06-2025 20:47:44 PDT by Timoteo Mcgregor Please click the below link to view image of tracing.
[2025-03-02] MEDS: MORPHINE SULFATE INJ 2 MG/ml SYRG IV ONE (19:15)
[2025-03-02] MEDS: NITROGLYCERIN 0.4 MG SL TAB SL ONE (19:15)
[2025-03-02] MEDS ORDERED: cloNIDine HCL 0.1 MG TAB PO PRN (20:45)
[2025-03-02] MEDS ORDERED: ACETAMINOPHEN 325 MG TAB PO PRN (20:45)
--- NOTE | 2025-03-02 21:58 | DVHHP2 ---
History of Present Illness Reason for Visit: SVT (supraventricular tachycardia) History of Present Illness The patient is a 69-year-old female with past medical history of hypertension, CVA, ESRD on hemodialysis, and CVA presented to [facility] ED with complaint of chest pain. Patient reports symptoms progressively get worse with lightheaded, shortness of breaths, headache, rating pain 7/10 numeric scale, palpitations, getting worse that prompted this visit. Patient was seen and evaluated in the ED, laboratory data shows WBC 4.5, hemoglobin 10.0, hematocrit 30.1, platelets 187, sodium 140, potassium 4.0, BUN 60, creatinine 6.37, GFR 7, glucose 93, calcium 9.4, BNP 213.92, troponin 32, blood pressure 112/66, heart rate 168 trending down to 86, temperature 98.7 F, O2 saturation 99% on room air. Please see medication orders section in the computer. On my assessment, patient denied chest pain at this moment, no headache, no dizziness, no shortn ess of breath, no nausea, no vomiting, no fever, no chills. Patient was admitted for further evaluation and medical management. Past Medical History CKF, CVA, ESRD, HTN, PACs Past Surgical History , Elbow surgery Family History Reviewed, noncontributory to the management of this case. Past Social History The patient lives at home, denies smoking, alcohol or illicit drugs abuse. Review of Systems Constitutional: No: Fever, Chills, Sweats, Weakness, Malaise, Other Eyes: No: Pain, Vision change, Conjunctivae inflammation, Eyelid inflammation, Other, Redness ENT: No: Ear pain, Ear discharge, Nose pain, Nose discharge, Nose congestion, Mouth pain, Mouth swelling, Throat pain, Throat swelling, Other Respiratory: Shortness of breath; No: Cough, Dry, SOB with excertion, Wheezing, Hemoptysis, Pleuritic Pain, Sputum, Wheezing, Other Cardiovascular: Chest Pain, Lt Headedness; No: Palpitations, Orthopnea, Paroxysmal Noc. Dyspnea, Edema, Other Gastrointestinal: No: Nausea, Vomiting, Abdominal Pain, Diarrhea, Constipation, Melena, Hematochezia, Other Genitourinary: No Dysuria, No Frequency, No Incontinence, No Hematuria, No Retention, No Other Musculoskeletal: No: other, neck pain, shoulder pain, arm pain, back pain, hand pain, leg pain, foot pain Skin: No: Rash, Lesions, Jaundice, Bruising, Other Neurological: Other (Headache); No: Weakness, Numbness, Incoordination, Change in speech, Confusion, Seizures Allergies: Coded Allergies: NO KNOWN ALLERGIES (Unverified , 11/04/23) Medications Current Medications Medications Dose Ordered Sig/[place] Route Start Time Stop Time Status Last Admin Dose Admin Carvedilol 3.125 mg Q12HR PO 03/02/25 22:00 Aspirin 81 mg DAILY PO 03/03/25 10:00 Clonidine HCl 0.1 mg Q4HP PRN PO 03/02/25 20:45 Multivit/Ca Carb/ B Cmplx/FA/Prenat 1 tab DAILY PO 03/03/25 10:00 Sevelamer HCl 800 mg TIDWM PO 03/03/25 08:00 Sodium Chloride 10 ml Q8HR IV 03/02/25 22:00 Acetaminophen/ Hydrocodone Bitart 1 tab Q4HP PRN PO 03/02/25 20:45 Ondansetron HCl 4 mg Q4HP PRN IV 03/02/25 20:45 Docusate Sodium 100 mg BIDPRN PRN PO 03/02/25 20:45 Acetaminophen 650 mg Q6HP PRN PO 03/02/25 20:45 Exam Vital Signs Vital Signs Date Time Temp Pulse Resp B/P (MAP) Pulse Ox O2 Delivery O2 Flow Rate FiO2 03/02/25 20:49 97.9 84 17 119/76 (90) 94 97.9 General Appearance: Alert, Oriented X3, Cooperative, No acute distress HEENT: Atraumatic, PERRLA, EOMI, Mucous membr. moist/pink Respiratory: Normal air movement Cardiovascular: Regular rate, Normal S1, Normal S2, No murmurs Abdominal: Normal bowel sounds, Soft, No tenderness, No hepatospenomegaly, No masses Extremities: No clubbing, No cyanosis, No edema, Normal pulses, No tenderness/swelling Skin: No rashes, No breakdown, No significant lesion Neuro: Normal speech, Normal tone, Sensation intact, Cranial nerves 3-12 NL, Reflexes 2+, Other (Generalized weakness) Psych/Mental Status: Mental status NL, Mood NL Labs/Xrays Labs Test 03/02/25 16:54 6/7/25 13:56 Range/Units Troponin I High Sensitivity 32 </=34 ng/L White Blood Count 4.5 4.4-10.8 10^3/uL Red Blood Count 3.48 L 4.0-5.20 10^6/uL Hemoglobin 10.0 L 12.2-16.2 g/dL Hematocrit 30.1 L 36.0-46.0 % Mean Corpuscular Volume 86.5 80.0-100.0 fL Mean Corpuscular Hemoglobin 28.7 28.0-32.0 pg Mean Corpuscular Hemoglobin Concent 33.1 32.0-36.0 g/dL Red Cell Distribution Width 16.8 H 11.8-14.3 % Platelet Count 187 140-450 10^3/uL Mean Platelet Volume 8.4 6.9-10.8 fL Neutrophils (%) (Auto) 49.7 37.0-80.0 % Lymphocytes (%) (Auto) 27.7 10.0-50.0 % Monocytes (%) (Auto) 10.3 0.0-12.0 % Eosinophils (%) (Auto) 11.7 H 0.0-7.0 % Basophils (%) (Auto) 0.6 0.0-2.0 % Neutrophils # (Auto) 2.2 1.6-8.6 10 ^3/uL Lymphocytes # (Auto) 1.2 0.4-5.4 10 ^3/uL Monocytes # (Auto) 0.5 0-1.3 10 ^3/uL Eosinophils # (Auto) 0.5 0-0.8 10 ^3/uL Basophils # (Auto) 0 0-0.2 10 ^3/uL Nucleated Red Blood Cells 0.1 % Sodium Level 140 136-145 mmol/L Potassium Level 4.0 3.5-5.1 mmol/L Chloride Level 98 98-107 mmol/L Carbon Dioxide Level 25 20-31 mmol/L Anion Gap 17 H 5-15 Blood Urea Nitrogen 60 H 9-23 mg/dL Creatinine 6.37 H 0.550-1.02 mg/dL Glomerular Filtration Rate Calc 7 >90 mL/min BUN/Creatinine Ratio 9.4 L 10.0-20.0 Serum Glucose 93 74-106 mg/dL Calcium Level 9.4 8.7-10.4 mg/dL B-Type Natriuretic Peptide 213.92 0-100 pg/mL PATIENT: KANDI BELLA ACCT: [id number] UNIT: [id number] : 1955 LOC: ER ROOM / BED: / AGE / SEX: 69 / F ADM STATUS: REG ER SERVICE 1359 ORDERING PHYSICIAN: MERLIN CRESPO MD PROCEDURE(s): CXRP - CHEST PORTABLE REASON: tachy ORDER NUMBER(s): [id number], ACCESSION NUMBER(s): [id number] EXAM: XY CHEST PORTABLE TECHNIQUE: Single frontal chest radiograph CLINICAL HISTORY: tachy COMPARISON: XY CHEST XRAY 1 VIEW on DOS: 11/04/23 Findings/Impression: Frontal chest radiograph demonstrates no acute osseous or superficial soft tissue abnormalities. Tunneled right-sided HD catheter terminates in the right atrium. The trachea is midline. The cardiac silhouette and mediastinum are within normal limits. Bibasilar airspace opacities, improved from prior. No pneumothorax. Assessment/Plan Assessment/Plan SVT (supraventricular tachycardia) Acute chest pain End-stage renal disease on hemodialysis Generalized weakness Plan 1. Admit to telemetry unit 2. Breathing treatment 3. Pain control management 4. Management of fluids and electrolytes 5. Consultation for Nephrology 6. Diagnostic tests chest x-ray 7. DVT prophylaxis-on aspirin 8. Repeat labs CBC, CMP in a.m. 9. Continue with current medical management 10. Treatment plan discussed with patient and RN. Patient verbalized understan beatriz. Plan discussed with: Patient, Other (RN) My Orders Orders - ETHEL DE LEON DNP Procedure Category Date Status Time Carvedilol Tablet PHA 03/02/25 In Process (Coreg Tablet) 22:00 Aspirin Tablet PHA 03/03/25 In Process 10:00 Clonidine Hcl Tablet PHA 03/02/25 In Process (Catapres Tablet) 20:45 *[facility] CONS 03/02/25 Transmitted -[place] 20:42 B-Complex W/ C & PHA 03/03/25 In Process Folic Tablet 10:00 Sevelamer (Renagel) PHA 03/03/25 In Process 08:00 Allergies SHIMON 03/02/25 In Process 20:42 Code Status CODE 03/02/25 Transmitted 20:42 Renal DIET 03/03/25 Transmitted Standard(2gna,3gk,Lopho) Breakfast Sodium Chloride Lock PHA 03/02/25 In Process (Saline Lock Ns) 22:00 Oxygen Per Hour RT 03/02/25 Transmitted 20:42 Hydrocodone-Acet PHA 03/02/25 In Process 5/325mg Tab ([place] 20:45 Ondansetron Hcl PHA 03/02/25 In Process (Zofran) 20:45 Docusate Sodium PHA 03/02/25 In Process Capsule (Colace 20:45 Complete Blood Count LAB 03/03/25 Verified 04:00 Comprehensive LAB 03/03/25 Verified Metabolic Panel 04:00 Condition: Serious SHIMON 03/02/25 In Process 20:42 Acetaminophen Tablet PHA 03/02/25 In Process (Tylenol Tablet) 20:45 Bedrest With Bathroom SHIMON 03/02/25 In Process Privileg 20:42 Sequential SHIMON 03/02/25 In Process Compression Device Problem List: (1) SVT (supraventricular tachycardia) (2) Acute chest pain (3) End-stage renal disease on hemodialysis (4) Generalized weakness Date of Service: Mar 02, 2025 Billing Provider: ETHEL DE LEON DNP Common Visit Codes: [id number] INP/OBS CARE (HIGH) ETHEL DE LEON DNP Mar 02, 2025 21:58
[2025-03-02] MEDS ORDERED: MORPHINE SULFATE 4 MG/ML SYR/VIAL IV PRN (22:00)
[2025-03-02] MEDS: CARVEDILOL 3.125 MG TAB PO SCH (22:00)
[2025-03-02] MEDS ORDERED: NITROGLYCERIN 0.4 MG SL TAB SL PRN (22:00)
[2025-03-02] MEDS: SODIUM CHLOR 0.9% PF (SALINE LOCK) 10ML VIAL/SYR IV SCH (22:00)
[2025-03-03] VITALS (8 sets, daily range): BP systolic 87–136; BP diastolic 53–84; PULSE 67–76; RESP 16–18; TEMP 97.7–98.9; O2SAT 93–98
[2025-03-03] MEDS ORDERED: AMLO1TAB23 PO (00:25)
[2025-03-03] MEDS ORDERED: TIZA4CAP14 PO (00:25)
[2025-03-03] MEDS ORDERED: LABE100T7 PO (00:25)
[2025-03-03] MEDS ORDERED: CLON0.1T PO (00:25)
[2025-03-03] MEDS: OXYCODONE W/ ACETAMINOPHEN 5/325MG TABLET PO PRN (01:38)
[2025-03-03 05:16] LABS: Basophils # (auto) 0 10 ^3/uL (0-0.2); Basophils % (auto) 0.9 % (0.0-2.0); Eosinophils # (auto) 0.6 10 ^3/uL (0-0.8); Eosinophils % (auto) 11.8 % (0.0-7.0); Hematocrit 29.5 % (36.0-46.0); Hemoglobin 9.8 g/dL (12.2-16.2); Lymphocytes # (auto) 1.6 10 ^3/uL (0.4-5.4); Lymphocytes % (auto) 31.1 % (10.0-50.0); Mean Corpuscular Hemoglobin 28.9 pg (28.0-32.0); Mean Corpuscular Hgb Conc. 33.1 g/dL (32.0-36.0); Mean Corpuscular Volume 87.4 fL (80.0-100.0); Monocytes # (auto) 0.5 10 ^3/uL (0-1.3); Monocytes % (auto) 9.3 % (0.0-12.0); Neutrophils # (auto) 2.4 10 ^3/uL (1.6-8.6); Neutrophils % (auto) 46.9 % (37.0-80.0); Nucleated Red Blood Cells % 0.4 %; Platelet Count (auto) 207 10^3/uL (140-450); Red Blood Cells 3.38 10^6/uL (4.0-5.20); Red Cell Distribution Width 17.4 % (11.8-14.3)
[2025-03-03 05:33] LABS: Anion Gap 15 (5-15); BUN/Creatinine Ratio 8.4 (10.0-20.0); Carbon Dioxide 25 mmol/L (20-31); Glucose 103 mg/dL (74-106); Potassium 4.2 mmol/L (3.5-5.1); Sodium 138 mmol/L (136-145); Total Protein 7.3 g/dL (5.7-8.2)
[2025-03-03 05:38] LABS: Alanine Aminotransferase < 9 U/L (7-40); Alkaline Phosphatase 726 U/L (46-116); Aspartate Aminotransferase 12 U/L (13-40); Bilirubin, Total < 0.2 mg/dL (0.2-1.0); Blood Urea Nitrogen 61 mg/dL (9-23); Calcium 8.6 mg/dL (8.7-10.4); Chloride 98 mmol/L (98-107)
[2025-03-03] MEDS: B-COMPLEX W/ C & FOLIC ACID(NEPHROVITE TAB) PO SCH (08:34)
[2025-03-03] MEDS: ASPirin 81 mg TAB PO SCH (08:34)
[2025-03-03] MEDS: SEVELAMER 800 MG TAB PO SCH (08:35)
[2025-03-03] MEDS: HYDROcodone-ACET 5/325MG TAB PO PRN (08:36)
--- NOTE | 2025-03-03 14:32 | DVHPN2 ---
Reviewed: Care Plan, H&P, Labs, Medications, Previous Orders, Radiology Changes from previous H/P or p: No Changes Eyes: No Pain, No Vision change, No Conjunctivae inflammation, No Eyelid inflammation, No Other, No Redness ENT: No Ear pain, No Ear discharge, No Nose pain, No Nose discharge, No Nose congestion, No Mouth pain, No Mouth swelling, No Throat pain, No Throat swelling, No Other Cardiovascular: Chest Pain; No Palpitations, No Orthopnea, No Paroxysmal Noc. Dyspnea, No Edema; Lt Headedness; No Other Respiratory: No Cough, No Dry; Shortness of breath; No SOB with excertion, No Wheezing, No Hemoptysis, No Pleuritic Pain, No Sputum, No Other Gastrointestinal: No Nausea, No Vomiting, No Abdominal Pain, No Diarrhea, No Constipation, No Melena, No Hematochezia, No Other Genitourinary: No Dysuria, No Frequency, No Incontinence, No Hematuria, No Retention, No Other Musculoskeletal: No other, No neck pain, No shoulder pain, No arm pain, No back pain, No hand pain, No leg pain, No foot pain Skin: No Rash, No Lesions, No Jaundice, No Bruising, No Other Objective Vitals Vital Signs Date Time Temp Pulse Resp B/P (MAP) Pulse Ox O2 Delivery O2 Flow Rate FiO2 03/03/25 13:28 98.8 72 16 123/84 (97) 93 98.8 03/03/25 08:00 Room Air* 0 21 Intake/Output Intake and Output 03/03/25 07:00 Intake Total 500 ml Balance 500 ml Intake Oral 500 ml # Voids 1 Medications Current Medications Medications Dose Ordered Sig/[place] Route Start Time Stop Time Status Last Admin Dose Admin Carvedilol 3.125 mg Q12HR PO 03/02/25 22:00 03/03/25 08:35 3.125 MG Aspirin 81 mg DAILY PO 03/03/25 10:00 03/03/25 08:34 81 MG Clonidine HCl 0.1 mg Q4HP PRN PO 03/02/25 20:45 Multivit/Ca Carb/ B Cmplx/FA/Prenat 1 tab DAILY PO 03/03/25 10:00 03/03/25 08:34 1 TAB Sevelamer HCl 800 mg TIDWM PO 03/03/25 08:00 03/03/25 11:58 800 MG Sodium Chloride 10 ml Q8HR IV 03/02/25 22:00 03/03/25 05:41 10 ML Acetaminophen/ Hydrocodone Bitart 1 tab Q4HP PRN PO 03/02/25 20:45 03/03/25 08:36 1 TAB Ondansetron HCl 4 mg Q4HP PRN IV 03/02/25 20:45 Docusate Sodium 100 mg BIDPRN PRN PO 03/02/25 20:45 Acetaminophen 650 mg Q6HP PRN PO 03/02/25 20:45 Nitroglycerin 0.4 mg Q5MINP PRN SL 03/02/25 22:00 Morphine Sulfate 2 mg Q30M PRN IV 03/02/25 22:00 Oxycodone/ Acetaminophen 2 tab Q4HP PRN PO 03/03/25 01:30 03/03/25 10:35 2 TAB Laboratory Results Laboratory Tests 03/03/25 04:26 Chemistry Test 03/03/25 04:26 Albumin 4.0 g/dL (3.2-4.8) Calcium Level 8.6 mg/dL (8.7-10.4) L Total Protein 7.3 g/dL (5.7-8.2) LFT Test 03/03/25 04:26 Alanine Aminotransferase (ALT) < 9 U/L (7-40) Alkaline Phosphatase 726 U/L (46-116) H Aspartate Amino Transferase (AST) 12 U/L (13-40) L Total Bilirubin < 0.2 mg/dL (0.2-1.0) L Microbiology Microbiology Date/Time Source Procedure Growth Status 03/03/25 00:46 Nose MRSA Screen - Final Complete Labs and/or images reviewed: Labs reviewed by me, Image(s) reviewed by me Assessment/Plan Assessment/Plan Supra Ventricular tachycardia Acute chest pain: Troponin negative x3 Consult for Cardiology Dr. Clements ESRD on hemodialysis consult for Dr. [facility] Status post right total knee replacement at [facility] 09/17/2023: History of right shoulder rotator cuff tear Chronic neck pain: Secondary hyperparathyroidism Hypertension: Continue home medication amlodipine and clonidine Generalized weakness secondary to uremia Anemia secondary to chronic kidney disease Anxiety: Xanax 1 mg PO TID Time spent 70 minutes Advanced care planning time 20 minutes Plan discussed with: Patient Date of Service: Mar 03, 2025 Billing Provider: CAYLA HERNANDEZ MD Common Visit Codes: [id number] CARE 30-74 MIN CAYLA HERNANDEZ MD Mar 03, 2025 14:32
--- NOTE | 2025-03-03 15:41 | DVHINCON2 ---
Date of service: Mar 03, 2025 Referring Physician Miguel HEREDIA Reason for Consultation ESRD on dialysis History of Present Illness Patient is a 69 y/o female with hx of ESRD on HD T//Tue, CVA, HTN. Admitted for SVT and CP. On admission pt was found to have BUN 60, creat of 6.37, K+ 4.0. Pt did not have dialysis on 03/02 as she was presented to the ER with CP, palpitations, headache, and dyspnea. Nephrology consult for ESRD on dialysis. Past Medical History ESRD on HD T//Tue, CVA, HTN. Allergies: Coded Allergies: NO KNOWN ALLERGIES (Unverified , 11/04/23) Home Meds Reported Medications Labetalol Hcl (Labetalol Hcl) 100 Mg Tab, 100 MG PO DAILY 03/03/25 Amlodipine Besylate (Amlodipine Besylate) 10 Mg Tab, 1 TAB PO DAILY 03/03/25 Tizanidine HCl (Tizanidine Hydrochloride) 4 Mg Cap, 1 CAP PO Q8HPRN PRN for MUSCLE RELAXANT 03/03/25 Clonidine Hydrochloride (Clonidine Hcl) 0.1 Mg Tab, 1 TAB PO BID 03/03/25 Oxycodone W/ Acetaminophen (Percocet 5/325MG) 1 Tab Tb, PO Q4HP PRN for PAIN SCALE 7 THRU 10, TAB 10/325 MG 11/05/23 Current Medications Current Medications Medications (Trade) Dose Ordered Sig/[place] Route PRN Reason Start Time Stop Time Status Last Admin Aspirin 81 mg DAILY PO 03/03/25 10:00 03/03/25 08:34 Multivit/Ca Carb/ B Cmplx/FA/Prenat (Nephro-Digna Tablet) 1 tab DAILY PO 03/03/25 10:00 03/03/25 08:34 Sevelamer HCl (Renagel) 800 mg TIDWM PO 03/03/25 08:00 03/03/25 17:35 Oxycodone/ Acetaminophen (Percocet 5/ 325MG Tablet) 2 tab Q4HP PRN PO SEVERE PAIN (7-10 PAIN SCALE) 03/03/25 01:30 03/03/25 21:48 Alprazolam (Xanax Tablet) 1 mg TID PO 03/03/25 15:00 03/03/25 21:48 Metoprolol Tartrate (Lopressor Tablet) 12.5 mg TID PO 03/03/25 22:00 03/03/25 21:49 Family History: FH: kidney disease G8 SISTER Review of Systems 10 systems reviewed and negative except as per HPI H&P Exam Vital Signs/I&O Vital Sign Date Time Temp Pulse Resp B/P (MAP) Pulse Ox O2 Delivery O2 Flow Rate FiO2 03/03/25 21:49 72 127/74 03/03/25 21:00 97.9 18 97 97.9 03/03/25 08:00 Room Air* 0 21 Intake and Output 03/02/25 03/03/25 19:00 07:00 Intake Total 500 ml Balance 500 ml Intake Oral 500 ml # Voids 1 Physical Exam Gen: appears stated age, NAD HEENT: PERRLA Lungs: Bilateral air entry, no rales Heart: RRR, normal S1 and S2 Abd: normoactive bowel sounds, nontender, nondistended Ext: No edema Neuro: A&O x4 Labs/Diagnostic Data Labs/Diagnostic Data Laboratory Tests Test 03/03/25 04:26 03/02/25 16:54 03/02/25 15:09 03/02/25 13:56 Range/Units White Blood Count 5.0 4.5 4.4-10.8 10^3/uL Red Blood Count 3.38 L 3.48 L 4.0-5.20 10^6/uL Hemoglobin 9.8 L 10.0 L 12.2-16.2 g/dL Hematocrit 29.5 L 30.1 L 36.0-46.0 % Mean Corpuscular Volume 87.4 86.5 80.0-100.0 fL Mean Corpuscular Hemoglobin 28.9 28.7 28.0-32.0 pg Mean Corpuscular Hemoglobin Concent 33.1 33.1 32.0-36.0 g/dL Red Cell Distribution Width 17.4 H 16.8 H 11.8-14.3 % Platelet Count 207 187 140-450 10^3/uL Mean Platelet Volume 8.4 8.4 6.9-10.8 fL Neutrophils (%) (Auto) 46.9 49.7 37.0-80.0 % Lymphocytes (%) (Auto) 31.1 27.7 10.0-50.0 % Monocytes (%) (Auto) 9.3 10.3 0.0-12.0 % Eosinophils (%) (Auto) 11.8 H 11.7 H 0.0-7.0 % Basophils (%) (Auto) 0.9 0.6 0.0-2.0 % Neutrophils # (Auto) 2.4 2.2 1.6-8.6 10 ^3/uL Lymphocytes # (Auto) 1.6 1.2 0.4-5.4 10 ^3/uL Monocytes # (Auto) 0.5 0.5 0-1.3 10 ^3/uL Eosinophils # (Auto) 0.6 0.5 0-0.8 10 ^3/uL Basophils # (Auto) 0 0 0-0.2 10 ^3/uL Nucleated Red Blood Cells 0.4 0.1 % Sodium Level 138 140 136-145 mmol/L Potassium Level 4.2 4.0 3.5-5.1 mmol/L Chloride Level 98 98 98-107 mmol/L Carbon Dioxide Level 25 25 20-31 mmol/L Anion Gap 15 17 H 5-15 Blood Urea Nitrogen 61 H 60 H 9-23 mg/dL Creatinine 7.28 H 6.37 H 0.550-1.02 mg/dL Glomerular Filtration Rate Calc 6 7 >90 mL/min BUN/Creatinine Ratio 8.4 L 9.4 L 10.0-20.0 Serum Glucose 103 93 74-106 mg/dL Hemoglobin A1c 5.1 <5.7 % A1C Calcium Level 8.6 L 9.4 8.7-10.4 mg/dL Magnesium Level 2.3 1.6-2.6 mg/dL Total Bilirubin < 0.2 L 0.2-1.0 mg/dL Aspartate Amino Transferase (AST) 12 L 13-40 U/L Alanine Aminotransferase (ALT) < 9 7-40 U/L Alkaline Phosphatase 726 H 46-116 U/L Total Protein 7.3 5.7-8.2 g/dL Albumin 4.0 3.2-4.8 g/dL Triglycerides Level 119 < 150 mg/dL Cholesterol Level 138 < 200 mg/dL LDL Cholesterol 68 < 100 mg/dL HDL Cholesterol 39 L 40-59 mg/dL Thyroid Stimulating Hormone (TSH) 0.90 0.55-4.78 uIU/mL Troponin I High Sensitivity 32 23 20 </=34 ng/L B-Type Natriuretic Peptide 213.92 0-100 pg/mL Microbiology Date/Time Source Procedure Growth Status 03/03/25 00:46 Nose MRSA Screen - Final Complete Plan/Recommendation IMP ESRD on HD- last HD 02/28 HTN CP- cardiology following REC -HD tentatively 03/04 -Chemistry panel, iron panel, transferrin, ferritin, CBC -Strict I&Os -Renal diet -Blood pressure control -Cardiology following Thank you for the consultation Plan discussed with: Patient DAV REALHA [facility] Mar 03, 2025 15:41
[2025-03-03] MEDS: ALPRAZolam 0.5 MG TAB PO SCH (16:03)
--- NOTE | 2025-03-03 17:49 | DVHINCON2 ---
Date Seen: Mar 03, 2025 Referring Physician MD Dylon Reason for Consultation Chest pain History of Present Illness This is a 69-year-old female patient who presents to the emergency room with chief complaint of chest pain. The patient reports that the chest pain began yesterday while she was at her dialysis session. She describes the pain as unprovoked, intermittent, pressure-like in nature, substernal and nonradiating. Associated symptoms include shortness of breath. Initial twelve lead electrocardiogram done in the emergency room reveals a narrow complex tachycardia, likely atrial flutter. Initial troponin level of 20ng/L flat trend thereafter. Significant past medical history includes hypertension, atrial fibrillation (not on NOAC due to history of severe anemia requiring multiple bl ood transfusions), thyroid disease, end-stage renal disease on hemodialysis, and CVA without residual deficit. The patient states that her primary securities dealer is . The patient reports a coronary angiogram approximately five years ago in which no catheter based intervention was deemed necessary. She has not had any other cardiac workup since then. Past Medical History Past medical history reviewed. No other significant than mentioned above. Past Surgical History x3 Spinal surgery Family History: FH: kidney disease G8 SISTER Family History Family history reviewed. Social History Denies the use of tobacco, alcohol or illicit drugs. Allergies: Coded Allergies: NO KNOWN ALLERGIES (Unverified , 11/04/23) Home Meds Reported Medications Labetalol Hcl (Labetalol Hcl) 100 Mg Tab, 100 MG PO DAILY 03/03/25 Amlodipine Besylate (Amlodipine Besylate) 10 Mg Tab, 1 TAB PO DAILY 03/03/25 Tizanidine HCl (Tizanidine Hydrochloride) 4 Mg Cap, 1 CAP PO Q8HPRN PRN for MUSCLE RELAXANT 03/03/25 Clonidine Hydrochloride (Clonidine Hcl) 0.1 Mg Tab, 1 TAB PO BID 03/03/25 Oxycodone W/ Acetaminophen (Percocet 5/325MG) 1 Tab Tb, PO Q4HP PRN for PAIN SCALE 7 THRU 10, TAB 10/325 MG 11/05/23 Home Meds Home medications reviewed. Current Medications Current Medications Medications (Trade) Dose Ordered Sig/[place] Route PRN Reason Start Time Stop Time Status Last Admin Carvedilol (Coreg Tablet) 3.125 mg Q12HR PO 03/02/25 22:00 03/03/25 15:16 DC 03/03/25 08:35 Aspirin 81 mg DAILY PO 03/03/25 10:00 03/03/25 08:34 Clonidine HCl (Catapres Tablet) 0.1 mg Q4HP PRN PO SBP>150 03/02/25 20:45 Multivit/Ca Carb/ B Cmplx/FA/Prenat (Nephro-Digna Tablet) 1 tab DAILY PO 03/03/25 10:00 03/03/25 08:34 Sevelamer HCl (Renagel) 800 mg TIDWM PO 03/03/25 08:00 03/03/25 11:58 Sodium Chloride (Saline Lock Ns) 10 ml Q8HR IV 03/02/25 22:00 03/03/25 14:34 Acetaminophen/ Hydrocodone Bitart ([place] 5/325MG Tab) 1 tab Q4HP PRN PO MODERATE PAIN (4-6 PAIN SCALE) 03/02/25 20:45 03/03/25 08:36 Ondansetron HCl (Zofran) 4 mg Q4HP PRN IV NAUSEA / VOMITING 03/02/25 20:45 Docusate Sodium (Colace Capsule) 100 mg BIDPRN PRN PO FOR CONSTIPATION 03/02/25 20:45 Acetaminophen (Tylenol Tablet) 650 mg Q6HP PRN PO PAIN SCALE 1-3 OR TEMP>100.4 03/02/25 20:45 Nitroglycerin (Ntrostat Sublingual) 0.4 mg Q5MINP PRN SL FOR CHEST PAIN 03/02/25 22:00 Morphine Sulfate 2 mg Q30M PRN IV FOR CHEST PAIN 03/02/25 22:00 Oxycodone/ Acetaminophen (Percocet 5/ 325MG Tablet) 2 tab Q4HP PRN PO SEVERE PAIN (7-10 PAIN SCALE) 03/03/25 01:30 03/03/25 14:52 Alprazolam (Xanax Tablet) 1 mg TID PO 03/03/25 15:00 03/03/25 16:03 Metoprolol Tartrate (Lopressor Tablet) 12.5 mg TID PO 03/03/25 22:00 Review of Systems Constitutional: No symptom reported Ears, Nose, & Throat: No symptom reported Eyes: No symptom reported Neurological: No symptoms reported Pulmonary/Respiratory: No symptoms reported Cardiovascular: Chest pain Gastrointestinal: No symptom reported Genitourinary: No symptom reported Musculoskeletal: No symptom reported Skin: No symptom reported Psychiatric: No symptom reported Endocrine: No symptom reported Hematologic/Lymphatic: No symptom reported Vital Signs Vital Signs Date Time Temp Pulse Resp B/P (MAP) Pulse Ox O2 Delivery O2 Flow Rate FiO2 03/03/25 13:28 98.8 72 16 123/84 (97) 93 98.8 03/03/25 08:00 Room Air* 0 21 Physical Exam General Appearance: Cooperative. Well-developed. Well-nourished. No acute distress. Pulmonary/Respiratory: Clear, bilateral breaths sounds. Cardiovascular/Chest: Regular rate and rhythm. Systolic murmur grade V/ Peripheral Pulses: 2+ Radial (R). 2+ Radial (L). 2+ Pedal (R). 2+ Pedal (L) Abdominal Exam: Normal bowel sounds. Ankle Exam: Negative ankle edema Lower extremities: Negative lower extremity edema Neuro/Mental Status: A/OX4, coherent. Thoughts/Psych: Normal thought pattern. Appropriate mood and affect. Good judgment and insight. Appearance: No acute distress. Skin Exam: Normal inspection. Normal color. Warm and dry. Labs/Diagnostic Data Labs Test 03/03/25 04:26 03/02/25 16:54 03/02/25 13:56 Range/Units White Blood Count 5.0 4.4-10.8 10^3/uL Red Blood Count 3.38 L 4.0-5.20 10^6/uL Hemoglobin 9.8 L 12.2-16.2 g/dL Hematocrit 29.5 L 36.0-46.0 % Mean Corpuscular Volume 87.4 80.0-100.0 fL Mean Corpuscular Hemoglobin 28.9 28.0-32.0 pg Mean Corpuscular Hemoglobin Concent 33.1 32.0-36.0 g/dL Red Cell Distribution Width 17.4 H 11.8-14.3 % Platelet Count 207 140-450 10^3/uL Mean Platelet Volume 8.4 6.9-10.8 fL Neutrophils (%) (Auto) 46.9 37.0-80.0 % Lymphocytes (%) (Auto) 31.1 10.0-50.0 % Monocytes (%) (Auto) 9.3 0.0-12.0 % Eosinophils (%) (Auto) 11.8 H 0.0-7.0 % Basophils (%) (Auto) 0.9 0.0-2.0 % Neutrophils # (Auto) 2.4 1.6-8.6 10 ^3/uL Lymphocytes # (Auto) 1.6 0.4-5.4 10 ^3/uL Monocytes # (Auto) 0.5 0-1.3 10 ^3/uL Eosinophils # (Auto) 0.6 0-0.8 10 ^3/uL Basophils # (Auto) 0 0-0.2 10 ^3/uL Nucleated Red Blood Cells 0.4 % Sodium Level 138 136-145 mmol/L Potassium Level 4.2 3.5-5.1 mmol/L Chloride Level 98 98-107 mmol/L Carbon Dioxide Level 25 20-31 mmol/L Anion Gap 15 5-15 Blood Urea Nitrogen 61 H 9-23 mg/dL Creatinine 7.28 H 0.550-1.02 mg/dL Glomerular Filtration Rate Calc 6 >90 mL/min BUN/Creatinine Ratio 8.4 L 10.0-20.0 Serum Glucose 103 74-106 mg/dL Calcium Level 8.6 L 8.7-10.4 mg/dL Total Bilirubin < 0.2 L 0.2-1.0 mg/dL Aspartate Amino Transferase (AST) 12 L 13-40 U/L Alanine Aminotransferase (ALT) < 9 7-40 U/L Alkaline Phosphatase 726 H 46-116 U/L Total Protein 7.3 5.7-8.2 g/dL Albumin 4.0 3.2-4.8 g/dL Troponin I High Sensitivity 32 </=34 ng/L B-Type Natriuretic Peptide 213.92 0-100 pg/mL Microbiology Date/Time Source Procedure Growth Status 03/03/25 00:46 Nose MRSA Screen - Final Complete Assessment Chest pain, rule out coronary ischemia Rule out structural heart disease Narrow complex tachycardia, likely atrial flutter, now normal sinus rhythm Hypertension Paroxysmal atrial fibrillation (off NOAC due to severe anemia requiring PRBC's) End-stage renal disease on hemodialysis Acute on chronic anemia CVA without residual deficits Thyroid disease Plan/Recommendation We will continue with the following plan/recommendations (Dr. Clements): * Transthoracic echocardiogram to evaluate cardiac function * Chest pain protocol * HEART score: 4 points, moderate score * ?[id number] VASc score: 5 points, HAS-BLED score: 3 points * Beta-scot for rate control * Avoid NOAC given patient hx of severe anemia requiring multiple blood transfusions * SCD in the meantime * Close Cardiac surveillance * Nuclear stress test Patient seen and examined at bedside with . Given the patient's clinical presentation, comorbidities, and elevated HEART score, the patient was offered a nuclear stress test. The patient is agreeable. We will schedule the patient for a nuclear stress test on 03/04/2025. Thank you for allowing us to care for this patient. Please call with any questions or concerns. Critical care time spent: 44 minutes This medical document was created using an electronic medical record system with voice recognition software and computerized dictation system. Although this document has been carefully reviewed, there might still be some phonetic and typographical errors. Occasional wrong-word or ``sound-alike substitutions may have occurred due to the inherent limitations of voice recognition software. These areas are purely typographical due to imperfections of the software programs and do not reflect any compromise in the patient's medical care. Please read the chart carefully and recognize, using context, where these substitutions have occurred. Plan discussed with: Patient NYHA Physical activity limitations: NA Date of Service: Mar 03, 2025 Billing Provider: CARLOS OVALLES Cardiology Common Codes: 47853-[id number] INP/OBS CARE (High) Cardiology Consultation Codes: [id number] CONSULT <45MIN CARLOS OVALLES Mar 03, 2025 17:49
[2025-03-03 18:10] LABS: Magnesium 2.3 mg/dL (1.6-2.6)
[2025-03-03] MEDS: METOPROLOL TARTRATE 25 MG TAB PO SCH (21:49)
--- NOTE | 2025-03-03 23:08 | DVHINCON2 ---
Date Seen: Mar 03, 2025 Referring Physician MD Dylon Reason for Consultation Chest pain History of Present Illness This is a 69-year-old female with a past medical history of hypertension, atrial fibrillation (not on NOAC due to history of severe anemia requiring multiple blood transfusions), thyroid disease, end-stage renal disease on hemodialysis, and CVA without residual deficit who presents to the emergency room with a complaint of chest pain. The patient reports that the chest pain began yesterday while she was at her scheduled dialysis session. She describes the pain as unprovoked, intermittent, pressure-like in nature, substernal and nonradiating. Associated symptoms include shortness of breath. Initial twelve lead electrocardiogram done in the emergency room reveals a narrow complex tachyca rdia, likely atrial flutter. Initial troponin level of 20ng/L flat trend thereafter. Chest x-ray showed frontal chest radiograph demonstrates no acute osseous or superficial soft tissue abnormalities. Tunneled right-sided HD catheter terminates in the right atrium. The trachea is midline. The cardiac silhouette and mediastinum are within normal limits. Bibasilar airspace opacities, improved from prior. No pneumothorax. The patient states that her primary health researcher is . The patient reports a coronary angiogram approximately five years ago in which no catheter based intervention was deemed necessary. She has not had any other cardiac workup since then. Patient was admitted to the hospital. I am asked to consult on this patient. Past Medical History Past medical history reviewed. No other significant than mentioned above. Past Surgical History x3 Spinal surgery Family History: FH: kidney disease G8 SISTER Allergies: Coded Allergies: NO KNOWN ALLERGIES (Unverified , 11/04/23) Home Meds Reported Medications Labetalol Hcl (Labetalol Hcl) 100 Mg Tab, 100 MG PO DAILY 03/03/25 Amlodipine Besylate (Amlodipine Besylate) 10 Mg Tab, 1 TAB PO DAILY 03/03/25 Tizanidine HCl (Tizanidine Hydrochloride) 4 Mg Cap, 1 CAP PO Q8HPRN PRN for MUSCLE RELAXANT 03/03/25 Clonidine Hydrochloride (Clonidine Hcl) 0.1 Mg Tab, 1 TAB PO BID 03/03/25 Oxycodone W/ Acetaminophen (Percocet 5/325MG) 1 Tab Tb, PO Q4HP PRN for PAIN SCALE 7 THRU 10, TAB 10/325 MG 11/05/23 Current Medications Current Medications Medications (Trade) Dose Ordered Sig/[place] Route PRN Reason Start Time Stop Time Status Last Admin Carvedilol (Coreg Tablet) 3.125 mg Q12HR PO 03/02/25 22:00 03/03/25 15:16 DC 03/03/25 08:35 Aspirin 81 mg DAILY PO 03/03/25 10:00 03/03/25 08:34 Clonidine HCl (Catapres Tablet) 0.1 mg Q4HP PRN PO SBP>150 03/02/25 20:45 Multivit/Ca Carb/ B Cmplx/FA/Prenat (Nephro-Digna Tablet) 1 tab DAILY PO 03/03/25 10:00 03/03/25 08:34 Sevelamer HCl (Renagel) 800 mg TIDWM PO 03/03/25 08:00 03/03/25 17:35 Sodium Chloride (Saline Lock Ns) 10 ml Q8HR IV 03/02/25 22:00 03/03/25 14:34 Acetaminophen/ Hydrocodone Bitart ([place] 5/325MG Tab) 1 tab Q4HP PRN PO MODERATE PAIN (4-6 PAIN SCALE) 03/02/25 20:45 03/03/25 08:36 Ondansetron HCl (Zofran) 4 mg Q4HP PRN IV NAUSEA / VOMITING 03/02/25 20:45 Docusate Sodium (Colace Capsule) 100 mg BIDPRN PRN PO FOR CONSTIPATION 03/02/25 20:45 Acetaminophen (Tylenol Tablet) 650 mg Q6HP PRN PO PAIN SCALE 1-3 OR TEMP>100.4 03/02/25 20:45 Nitroglycerin (Ntrostat Sublingual) 0.4 mg Q5MINP PRN SL FOR CHEST PAIN 03/02/25 22:00 Morphine Sulfate 2 mg Q30M PRN IV FOR CHEST PAIN 03/02/25 22:00 Oxycodone/ Acetaminophen (Percocet 5/ 325MG Tablet) 2 tab Q4HP PRN PO SEVERE PAIN (7-10 PAIN SCALE) 03/03/25 01:30 03/03/25 14:52 Alprazolam (Xanax Tablet) 1 mg TID PO 03/03/25 15:00 03/03/25 16:03 Metoprolol Tartrate (Lopressor Tablet) 12.5 mg TID PO 03/03/25 22:00 Review of Systems Constitutional: No symptom reported Ears, Nose, & Throat: No symptom reported Eyes: No symptom reported Neurological: No symptoms reported Pulmonary/Respiratory: No symptoms reported Cardiovascular: Chest pain Gastrointestinal: No symptom reported Genitourinary: No symptom reported Musculoskeletal: No symptom reported Skin: No symptom reported Psychiatric: No symptom reported Endocrine: No symptom reported Hematologic/Lymphatic: No symptom reported Vital Signs Vital Signs Date Time Temp Pulse Resp B/P (MAP) Pulse Ox O2 Delivery O2 Flow Rate FiO2 03/03/25 17:00 98.9 76 18 122/75 (91) 95 98.9 03/03/25 08:00 Room Air* 0 21 Physical Exam GENERAL: Alert and oriented x 3. No acute distress. EYES: PERRL, EOMI. Anicteric. HENT: Moist mucous membranes. LUNGS: Clear to auscultation bilaterally. CARDIOVASCULAR: Regular rate and rhythm.Systolic murmur grade V/. ABDOMEN: Soft, nontender and nondistended. EXTREMITIES: No edema. NEUROLOGIC: No focal neurological deficits. SKIN: Warm, dry. Labs/Diagnostic Data Labs Test 03/03/25 04:26 03/02/25 16:54 03/02/25 13:56 Range/Units White Blood Count 5.0 4.4-10.8 10^3/uL Red Blood Count 3.38 L 4.0-5.20 10^6/uL Hemoglobin 9.8 L 12.2-16.2 g/dL Hematocrit 29.5 L 36.0-46.0 % Mean Corpuscular Volume 87.4 80.0-100.0 fL Mean Corpuscular Hemoglobin 28.9 28.0-32.0 pg Mean Corpuscular Hemoglobin Concent 33.1 32.0-36.0 g/dL Red Cell Distribution Width 17.4 H 11.8-14.3 % Platelet Count 207 140-450 10^3/uL Mean Platelet Volume 8.4 6.9-10.8 fL Neutrophils (%) (Auto) 46.9 37.0-80.0 % Lymphocytes (%) (Auto) 31.1 10.0-50.0 % Monocytes (%) (Auto) 9.3 0.0-12.0 % Eosinophils (%) (Auto) 11.8 H 0.0-7.0 % Basophils (%) (Auto) 0.9 0.0-2.0 % Neutrophils # (Auto) 2.4 1.6-8.6 10 ^3/uL Lymphocytes # (Auto) 1.6 0.4-5.4 10 ^3/uL Monocytes # (Auto) 0.5 0-1.3 10 ^3/uL Eosinophils # (Auto) 0.6 0-0.8 10 ^3/uL Basophils # (Auto) 0 0-0.2 10 ^3/uL Nucleated Red Blood Cells 0.4 % Sodium Level 138 136-145 mmol/L Potassium Level 4.2 3.5-5.1 mmol/L Chloride Level 98 98-107 mmol/L Carbon Dioxide Level 25 20-31 mmol/L Anion Gap 15 5-15 Blood Urea Nitrogen 61 H 9-23 mg/dL Creatinine 7.28 H 0.550-1.02 mg/dL Glomerular Filtration Rate Calc 6 >90 mL/min BUN/Creatinine Ratio 8.4 L 10.0-20.0 Serum Glucose 103 74-106 mg/dL Calcium Level 8.6 L 8.7-10.4 mg/dL Total Bilirubin < 0.2 L 0.2-1.0 mg/dL Aspartate Amino Transferase (AST) 12 L 13-40 U/L Alanine Aminotransferase (ALT) < 9 7-40 U/L Alkaline Phosphatase 726 H 46-116 U/L Total Protein 7.3 5.7-8.2 g/dL Albumin 4.0 3.2-4.8 g/dL Troponin I High Sensitivity 32 </=34 ng/L B-Type Natriuretic Peptide 213.92 0-100 pg/mL Microbiology Date/Time Source Procedure Growth Status 03/03/25 00:46 Nose MRSA Screen - Final Complete Assessment Chest pain, rule out coronary ischemia. Rule out structural heart disease. Narrow complex tachycardia, likely atrial flutter, now normal sinus rhythm. Hypertension. Paroxysmal atrial fibrillation (off NOAC due to severe anemia requiring PRBC's). End-stage renal disease on hemodialysis. Acute on chronic anemia. CVA without residual deficits. Thyroid disease. Plan/Recommendation I agree with your ongoing assessment and care of plan. Patient has been seen by Bobbi Ewing NP on my behalf, her and I discussed the plan with the patient. Given the patient's clinical presentation, comorbidities, and elevated HEART score, the patient was offered a nuclear stress test. The patient is agreeable. We will schedule the patient for a nuclear stress test on 03/04/2025. Transthoracic echocardiogram to evaluate cardiac function. Chest pain protocol. HEART score: 4 points, moderate score. ?[id number] VASc score: 5 points, HAS-BLED score: 3 points. Beta-scot for rate control. Avoid NOAC given patient hx of severe anemia requiring multiple blood transfusions. SCD in the meantime. Close Cardiac surveillance. Additional plan as per the hospital course. Plan discussed with: Patient NYHA 2 Physical activity limitations: NA Date of Service: Mar 03, 2025 Billing Provider: NISREEN OWEN MD Cardiology Common Codes: [id number] INP/OBS CARE (High) Cardiology Consultation Codes: [id number] CONSULT <45MIN NISREEN OWEN MD Mar 03, 2025 17:53
[2025-03-04] VITALS (8 sets, daily range): BP systolic 116–162; BP diastolic 67–84; PULSE 65–86; RESP 16–19; TEMP 97.4–98.1; O2SAT 95–98
[2025-03-04 06:15] LABS: Basophils # (auto) 0 10 ^3/uL (0-0.2); Basophils % (auto) 0.6 % (0.0-2.0); Eosinophils # (auto) 0.6 10 ^3/uL (0-0.8); Eosinophils % (auto) 11.5 % (0.0-7.0); Hematocrit 29.1 % (36.0-46.0); Hemoglobin 9.8 g/dL (12.2-16.2); Lymphocytes # (auto) 1.6 10 ^3/uL (0.4-5.4); Lymphocytes % (auto) 30.3 % (10.0-50.0); Mean Corpuscular Hemoglobin 29.1 pg (28.0-32.0); Mean Corpuscular Hgb Conc. 33.7 g/dL (32.0-36.0); Mean Corpuscular Volume 86.5 fL (80.0-100.0); Monocytes # (auto) 0.5 10 ^3/uL (0-1.3); Monocytes % (auto) 9.3 % (0.0-12.0); Neutrophils # (auto) 2.5 10 ^3/uL (1.6-8.6); Neutrophils % (auto) 48.3 % (37.0-80.0); Nucleated Red Blood Cells % 0.1 %; Platelet Count (auto) 237 10^3/uL (140-450); Red Blood Cells 3.36 10^6/uL (4.0-5.20); Red Cell Distribution Width 17.1 % (11.8-14.3); White Blood Cell 5.1 10^3/uL (4.4-10.8)
[2025-03-04 06:25] LABS: Anion Gap 16 (5-15); Potassium 4.8 mmol/L (3.5-5.1); Sodium 138 mmol/L (136-145)
[2025-03-04 06:27] LABS: Calcium 9.3 mg/dL (8.7-10.4)
[2025-03-04 06:30] LABS: Chloride 97 mmol/L (98-107)
[2025-03-04 06:31] LABS: BUN/Creatinine Ratio 8.8 (10.0-20.0); Glucose 95 mg/dL (74-106)
[2025-03-04 06:39] LABS: Phosphorus 5.1 mg/dL (2.4-5.1)
[2025-03-04 06:40] LABS: Carbon Dioxide 25 mmol/L (20-31)
[2025-03-04 07:00] LABS: Blood Urea Nitrogen 81 mg/dL (9-23)
--- NOTE | 2025-03-04 10:46 | DVHPN2 ---
Reviewed: Care Plan, H&P, Labs, Medications, Previous Orders, Radiology Changes from previous H/P or p: No Changes Eyes: No Pain, No Vision change, No Conjunctivae inflammation, No Eyelid inflammation, No Other, No Redness ENT: No Ear pain, No Ear discharge, No Nose pain, No Nose discharge, No Nose congestion, No Mouth pain, No Mouth swelling, No Throat pain, No Throat swelling, No Other Cardiovascular: Chest Pain; No Palpitations, No Orthopnea, No Paroxysmal Noc. Dyspnea, No Edema; Lt Headedness; No Other Respiratory: No Cough, No Dry; Shortness of breath; No SOB with excertion, No Wheezing, No Hemoptysis, No Pleuritic Pain, No Sputum, No Other Gastrointestinal: No Nausea, No Vomiting, No Abdominal Pain, No Diarrhea, No Constipation, No Melena, No Hematochezia, No Other Genitourinary: No Dysuria, No Frequency, No Incontinence, No Hematuria, No Retention, No Other Musculoskeletal: No other, No neck pain, No shoulder pain, No arm pain, No back pain, No hand pain, No leg pain, No foot pain Skin: No Rash, No Lesions, No Jaundice, No Bruising, No Other Objective Vitals Vital Signs Date Time Temp Pulse Resp B/P (MAP) Pulse Ox O2 Delivery O2 Flow Rate FiO2 03/04/25 08:00 Room Air* 0 21 03/04/25 05:00 98.0 72 18 144/78 (100) 97 98.0 Intake/Output Intake and Output 03/04/25 07:00 Intake Total 940 ml Output Total 200 ml Balance 740 ml Intake Oral 940 ml Output Urine Total 200 ml # Bowel Movements 1 Medications Current Medications Medications Dose Ordered Sig/[place] Route Start Time Stop Time Status Last Admin Dose Admin Aspirin 81 mg DAILY PO 03/03/25 10:00 03/04/25 09:12 81 MG Clonidine HCl 0.1 mg Q4HP PRN PO 03/02/25 20:45 Multivit/Ca Carb/ B Cmplx/FA/Prenat 1 tab DAILY PO 03/03/25 10:00 03/04/25 09:12 1 TAB Sevelamer HCl 800 mg TIDWM PO 03/03/25 08:00 03/03/25 17:35 800 MG Sodium Chloride 10 ml Q8HR IV 03/02/25 22:00 03/04/25 08:54 10 ML Acetaminophen/ Hydrocodone Bitart 1 tab Q4HP PRN PO 03/02/25 20:45 03/03/25 08:36 1 TAB Ondansetron HCl 4 mg Q4HP PRN IV 03/02/25 20:45 Docusate Sodium 100 mg BIDPRN PRN PO 03/02/25 20:45 Acetaminophen 650 mg Q6HP PRN PO 03/02/25 20:45 Nitroglycerin 0.4 mg Q5MINP PRN SL 03/02/25 22:00 Morphine Sulfate 2 mg Q30M PRN IV 03/02/25 22:00 Oxycodone/ Acetaminophen 2 tab Q4HP PRN PO 03/03/25 01:30 03/04/25 09:12 2 TAB Alprazolam 1 mg TID PO 03/03/25 15:00 03/03/25 21:48 1 MG Metoprolol Tartrate 12.5 mg TID PO 03/03/25 22:00 03/03/25 21:49 12.5 MG Laboratory Results Laboratory Tests 03/04/25 05:54 Chemistry Test 03/04/25 05:54 Calcium Level 9.3 mg/dL (8.7-10.4) Phosphorus Level 5.1 mg/dL (2.4-5.1) Microbiology Microbiology Date/Time Source Procedure Growth Status 03/03/25 00:46 Nose MRSA Screen - Final Complete Labs and/or images reviewed: Labs reviewed by me, Image(s) reviewed by me Assessment/Plan Assessment/Plan Narrow complex tachycardia Acute chest pain: Rule out Coronary artery disease, Troponin negative x3 Consult for Cardiology Dr. Clements, getting Cardiolite stress test today Paroxysmal AFib not on any blood thinners secondary to severe anemia requiring blood transfusion ESRD on hemodialysis consult for Dr. Graham group CVA without residual deficits Status post right total knee replacement at [facility] 09/17/2023: History of right shoulder rotator cuff tear Chronic neck pain: Secondary hyperparathyroidism Hypertension: Continue home medication amlodipine and clonidine Generalized weakness secondary to uremia Anemia secondary to chronic kidney disease Anxiety: Xanax 1 mg PO TID Time spent 70 minutes Plan discussed with: Patient My Orders Orders - CAYLA HERNANDEZ MD Procedure Category Date Status Time * Cardiology Consult CONS 03/03/25 Transmitted 14:22 Alprazolam Tablet PHA 03/03/25 In Process (Xanax Tablet) 15:00 *Dr. [facility] CONS 03/03/25 Transmitted -[place] 14:33 Date of Service: Mar 04, 2025 Billing Provider: CAYLA HERNANDEZ MD Common Visit Codes: [id number] CARE 30-74 MIN CAYLA HERNANDEZ MD Mar 04, 2025 10:46
--- NOTE | 2025-03-04 10:49 | DVHPN2 ---
Progress Note Date Seen: Mar 04, 2025 Medical Necessity Reason Pt with a Central, PICC or Fol: No Subjective Patient reports: Feels better Review of Systems: HEENT:Normal Objective vital signs Vital Sign Date Time Temp Pulse Resp B/P (MAP) Pulse Ox O2 Delivery O2 Flow Rate FiO2 03/04/25 08:00 Room Air* 0 21 03/04/25 05:00 98.0 72 18 144/78 (100) 97 98.0 Total Intake and Output 03/03/25 03/03/25 03/04/25 15:00 23:00 07:00 Intake Total 580 ml 360 ml Output Total 200 ml Balance 380 ml 360 ml medications Current Medications Medications Dose Ordered Sig/[place] Route Start Time Stop Time Status Last Admin Dose Admin Aspirin 81 mg DAILY PO 03/03/25 10:00 03/04/25 09:12 81 MG Clonidine HCl 0.1 mg Q4HP PRN PO 03/02/25 20:45 Multivit/Ca Carb/ B Cmplx/FA/Prenat 1 tab DAILY PO 03/03/25 10:00 03/04/25 09:12 1 TAB Sevelamer HCl 800 mg TIDWM PO 03/03/25 08:00 03/03/25 17:35 800 MG Sodium Chloride 10 ml Q8HR IV 03/02/25 22:00 03/04/25 08:54 10 ML Acetaminophen/ Hydrocodone Bitart 1 tab Q4HP PRN PO 03/02/25 20:45 03/03/25 08:36 1 TAB Ondansetron HCl 4 mg Q4HP PRN IV 03/02/25 20:45 Docusate Sodium 100 mg BIDPRN PRN PO 03/02/25 20:45 Acetaminophen 650 mg Q6HP PRN PO 03/02/25 20:45 Nitroglycerin 0.4 mg Q5MINP PRN SL 03/02/25 22:00 Morphine Sulfate 2 mg Q30M PRN IV 03/02/25 22:00 Oxycodone/ Acetaminophen 2 tab Q4HP PRN PO 03/03/25 01:30 03/04/25 09:12 2 TAB Alprazolam 1 mg TID PO 03/03/25 15:00 03/03/25 21:48 1 MG Metoprolol Tartrate 12.5 mg TID PO 03/03/25 22:00 03/03/25 21:49 12.5 MG Examination: GENERAL:Normal, CVS:Normal, ABDOMEN:Normal laboratory and microbiology Laboratory Tests 03/04/25 05:54 Test 03/04/25 05:54 Range/Units Serum Glucose 95 74-106 mg/dL Microbiology Date/Time Source Procedure Growth Status 03/03/25 00:46 Nose MRSA Screen - Final Complete Problem List/Assessment/Plan Problem List/Assessment/Plan ESRD on HD HTN Chest pain HD Strict I&Os Renal diet Blood pressure control Cardiology following Epogen MWF Plan discussed with: Patient DESTINY QUILES MD Mar 04, 2025 10:49
--- NOTE | 2025-03-04 23:48 | DVHPN2 ---
Progress Note - Dictate Date Seen: Mar 04, 2025 Medical Necessity Reason Pt with a Central, PICC or Fol: No Subjective Patient was seen and evaluated in follow up. Patient is complaining of chest pain, SOB and light headedness, echocardiogram is ordered/pending. HGB 9.8, HCT 29.1, BUN 81, DICE PERSON 9.20. Telemetry reviewed. vital signs Vital Sign Date Time Temp Pulse Resp B/P (MAP) Pulse Ox O2 Delivery O2 Flow Rate FiO2 03/04/25 21:52 81 117/74 03/04/25 21:00 98.1 19 98 98.1 03/04/25 20:00 Room Air* 0 21 Total Intake and Output 03/03/25 03/03/25 03/04/25 15:00 23:00 07:00 Intake Total 580 ml 360 ml Output Total 200 ml Balance 380 ml 360 ml medications Current Medications Medications Dose Ordered Sig/Ivan[place] Route Start Time Stop Time Status Last Admin Dose Admin Aspirin 81 mg DAILY PO 03/03/25 10:00 03/04/25 09:12 81 MG Clonidine HCl 0.1 mg Q4HP PRN PO 03/02/25 20:45 Multivit/Ca Carb/ B Cmplx/FA/Prenat 1 tab DAILY PO 03/03/25 10:00 03/04/25 09:12 1 TAB Sevelamer HCl 800 mg TIDWM PO 03/03/25 08:00 03/04/25 17:53 800 MG Sodium Chloride 10 ml Q8HR IV 03/02/25 22:00 03/04/25 21:51 10 ML Acetaminophen/ Hydrocodone Bitart 1 tab Q4HP PRN PO 03/02/25 20:45 03/04/25 22:56 1 TAB Ondansetron HCl 4 mg Q4HP PRN IV 03/02/25 20:45 Docusate Sodium 100 mg BIDPRN PRN PO 03/02/25 20:45 Acetaminophen 650 mg Q6HP PRN PO 03/02/25 20:45 Nitroglycerin 0.4 mg Q5MINP PRN SL 03/02/25 22:00 Morphine Sulfate 2 mg Q30M PRN IV 03/02/25 22:00 Oxycodone/ Acetaminophen 2 tab Q4HP PRN PO 03/03/25 01:30 03/04/25 19:59 2 TAB Alprazolam 1 mg TID PO 03/03/25 15:00 03/04/25 21:51 1 MG Metoprolol Tartrate 12.5 mg TID PO 03/03/25 22:00 03/04/25 13:42 12.5 MG Epoetin Gamal-epbx 10,000 unit MWF@2100 [place] 03/06/25 21:00 objective GENERAL: Alert and oriented x 3. No acute distress. EYES: PERRL, EOMI. Anicteric. HENT: Moist mucous membranes. LUNGS: Clear to auscultation bilaterally. CARDIOVASCULAR: Regular rate and rhythm. Systolic murmur grade V/. ABDOMEN: Soft, nontender and nondistended. EXTREMITIES: No edema. NEUROLOGIC: No focal neurological deficits. SKIN: Warm, dry. laboratory and microbiology Laboratory Tests 03/04/25 05:54 Test 03/04/25 05:54 Range/Units Serum Glucose 95 74-106 mg/dL Problem List Chest pain, rule out coronary ischemia. Rule out structural heart disease. Narrow complex tachycardia, likely atrial flutter, now normal sinus rhythm. Hypertension. Paroxysmal atrial fibrillation (off NOAC due to severe anemia requiring PRBC's). End-stage renal disease on hemodialysis. Acute on chronic anemia. CVA without residual deficits. Thyroid disease. Assessment/Plan Continued all current supportive medical care. Transthoracic echocardiogram to evaluate cardiac function. Oxycodone and Damon for pain. Aspirin, Metoprolol. Clonidine. Nitro SL. Additional plan as per the hospital course. Plan discussed with: Patient NISREEN OWEN MD Mar 04, 2025 23:48
[2025-03-05] VITALS (8 sets, daily range): BP systolic 106–122; BP diastolic 56–74; PULSE 71–91; RESP 16–18; TEMP 97.5–98.3; O2SAT 96–97
[2025-03-05] MEDS: MORPHINE SULFATE 4 MG/ML SYR/VIAL IV ONE (06:38)
[2025-03-05 06:48] LABS: Basophils # (auto) 0 10 ^3/uL (0-0.2); Basophils % (auto) 0.9 % (0.0-2.0); Eosinophils # (auto) 0.5 10 ^3/uL (0-0.8); Eosinophils % (auto) 10.9 % (0.0-7.0); Hematocrit 30.4 % (36.0-46.0); Lymphocytes # (auto) 1.6 10 ^3/uL (0.4-5.4); Lymphocytes % (auto) 37.8 % (10.0-50.0); Mean Corpuscular Hemoglobin 28.6 pg (28.0-32.0); Mean Corpuscular Volume 86.6 fL (80.0-100.0); Monocytes # (auto) 0.5 10 ^3/uL (0-1.3); Monocytes % (auto) 10.7 % (0.0-12.0); Neutrophils # (auto) 1.7 10 ^3/uL (1.6-8.6); Neutrophils % (auto) 39.7 % (37.0-80.0); Nucleated Red Blood Cells % 0.1 %; Platelet Count (auto) 257 10^3/uL (140-450); Red Blood Cells 3.51 10^6/uL (4.0-5.20); Red Cell Distribution Width 16.7 % (11.8-14.3); White Blood Cell 4.3 10^3/uL (4.4-10.8)
[2025-03-05 06:54] LABS: Anion Gap 15 (5-15); BUN/Creatinine Ratio 6.9 (10.0-20.0); Calcium 9.1 mg/dL (8.7-10.4); Carbon Dioxide 26 mmol/L (20-31); Glucose 92 mg/dL (74-106); Sodium 137 mmol/L (136-145); Total Protein 7.4 g/dL (5.7-8.2)
[2025-03-05 06:55] LABS: Albumin 3.9 g/dL (3.2-4.8)
[2025-03-05 07:02] LABS: Alanine Aminotransferase < 9 U/L (7-40); Alkaline Phosphatase 700 U/L (46-116); Blood Urea Nitrogen 41 mg/dL (9-23); Chloride 96 mmol/L (98-107)
[2025-03-05 07:03] LABS: Bilirubin, Total < 0.2 mg/dL (0.2-1.0)
[2025-03-05 07:29] LABS: Aspartate Aminotransferase 11 U/L (13-40)
[2025-03-05] MEDS: REGADENOSON 0.4 MG/5 ML SYRG IV ONE ×2 (08:21→08:26)
--- NOTE | 2025-03-05 09:29 | DVHPN2 ---
Progress Note Date Seen: Mar 05, 2025 Medical Necessity Reason Pt with a Central, PICC or Fol: No Objective vital signs Vital Sign Date Time Temp Pulse Resp B/P (MAP) Pulse Ox O2 Delivery O2 Flow Rate FiO2 03/05/25 07:48 Room Air* 0 21 03/05/25 07:08 71 16 112/71 03/05/25 04:47 98.0 97 98.0 Total Intake and Output 03/04/25 03/04/25 03/05/25 15:00 23:00 07:00 Intake Total 240 ml 120 ml 520 ml Balance 240 ml 120 ml 520 ml medications Current Medications Medications Dose Ordered Sig/[place] Route Start Time Stop Time Status Last Admin Dose Admin Aspirin 81 mg DAILY PO 03/03/25 10:00 03/05/25 09:00 81 MG Clonidine HCl 0.1 mg Q4HP PRN PO 03/02/25 20:45 Multivit/Ca Carb/ B Cmplx/FA/Prenat 1 tab DAILY PO 03/03/25 10:00 03/05/25 09:00 1 TAB Sevelamer HCl 800 mg TIDWM PO 03/03/25 08:00 03/04/25 17:53 800 MG Sodium Chloride 10 ml Q8HR IV 03/02/25 22:00 03/05/25 09:03 10 ML Acetaminophen/ Hydrocodone Bitart 1 tab Q4HP PRN PO 03/02/25 20:45 03/04/25 22:56 1 TAB Ondansetron HCl 4 mg Q4HP PRN IV 03/02/25 20:45 Docusate Sodium 100 mg BIDPRN PRN PO 03/02/25 20:45 Acetaminophen 650 mg Q6HP PRN PO 03/02/25 20:45 Nitroglycerin 0.4 mg Q5MINP PRN SL 03/02/25 22:00 Morphine Sulfate 2 mg Q30M PRN IV 03/02/25 22:00 Oxycodone/ Acetaminophen 2 tab Q4HP PRN PO 03/03/25 01:30 03/05/25 09:01 2 TAB Alprazolam 1 mg TID PO 03/03/25 15:00 03/04/25 21:51 1 MG Metoprolol Tartrate 12.5 mg TID PO 03/03/25 22:00 03/04/25 13:42 12.5 MG Epoetin Gamal-epbx 10,000 unit MWF@2100 [place] 03/06/25 21:00 Examination: GENERAL:Normal, CVS:Abnormal, ABDOMEN:Normal laboratory and microbiology Laboratory Tests 03/05/25 05:56 Test 03/05/25 05:56 Range/Units Serum Glucose 92 74-106 mg/dL Microbiology Date/Time Source Procedure Growth Status 03/03/25 00:46 Nose MRSA Screen - Final Complete Problem List/Assessment/Plan Problem List/Assessment/Plan ESRD on HD, former DDRT HTN Chest pain stress test today , next HD tentative tomorrow Strict I&Os Renal diet Blood pressure control Cardiology following Epogen MWF Plan discussed with: Patient My Orders My Orders Orders - DESTINY QUILES MD Procedure Category Date Status Time Epoetin Gamal-Epbx [facility] 03/06/25 In Process (Retacrit) 21:00 DESTINY QUILES MD Mar 05, 2025 09:29
--- NOTE | 2025-03-05 09:36 | DVHPN2 ---
Reviewed: Care Plan, H&P, Labs, Medications, Previous Orders, Radiology Changes from previous H/P or p: No Changes Eyes: No Pain, No Vision change, No Conjunctivae inflammation, No Eyelid inflammation, No Other, No Redness ENT: No Ear pain, No Ear discharge, No Nose pain, No Nose discharge, No Nose congestion, No Mouth pain, No Mouth swelling, No Throat pain, No Throat swelling, No Other Cardiovascular: Chest Pain; No Palpitations, No Orthopnea, No Paroxysmal Noc. Dyspnea, No Edema; Lt Headedness; No Other Respiratory: No Cough, No Dry; Shortness of breath; No SOB with excertion, No Wheezing, No Hemoptysis, No Pleuritic Pain, No Sputum, No Other Gastrointestinal: No Nausea, No Vomiting, No Abdominal Pain, No Diarrhea, No Constipation, No Melena, No Hematochezia, No Other Genitourinary: No Dysuria, No Frequency, No Incontinence, No Hematuria, No Retention, No Other Musculoskeletal: No other, No neck pain, No shoulder pain, No arm pain, No back pain, No hand pain, No leg pain, No foot pain Skin: No Rash, No Lesions, No Jaundice, No Bruising, No Other Objective Vitals Vital Signs Date Time Temp Pulse Resp B/P (MAP) Pulse Ox O2 Delivery O2 Flow Rate FiO2 03/05/25 07:48 Room Air* 0 21 03/05/25 07:08 71 16 112/71 03/05/25 04:47 98.0 97 98.0 Intake/Output Intake and Output 03/05/25 07:00 Intake Total 880 ml Balance 880 ml Intake Oral 880 ml # Bowel Movements 1 Medications Current Medications Medications Dose Ordered Sig/[place] Route Start Time Stop Time Status Last Admin Dose Admin Aspirin 81 mg DAILY PO 03/03/25 10:00 03/05/25 09:00 81 MG Clonidine HCl 0.1 mg Q4HP PRN PO 03/02/25 20:45 Multivit/Ca Carb/ B Cmplx/FA/Prenat 1 tab DAILY PO 03/03/25 10:00 03/05/25 09:00 1 TAB Sevelamer HCl 800 mg TIDWM PO 03/03/25 08:00 03/04/25 17:53 800 MG Sodium Chloride 10 ml Q8HR IV 03/02/25 22:00 03/05/25 09:03 10 ML Acetaminophen/ Hydrocodone Bitart 1 tab Q4HP PRN PO 03/02/25 20:45 03/04/25 22:56 1 TAB Ondansetron HCl 4 mg Q4HP PRN IV 03/02/25 20:45 Docusate Sodium 100 mg BIDPRN PRN PO 03/02/25 20:45 Acetaminophen 650 mg Q6HP PRN PO 03/02/25 20:45 Nitroglycerin 0.4 mg Q5MINP PRN SL 03/02/25 22:00 Morphine Sulfate 2 mg Q30M PRN IV 03/02/25 22:00 Oxycodone/ Acetaminophen 2 tab Q4HP PRN PO 03/03/25 01:30 03/05/25 09:01 2 TAB Alprazolam 1 mg TID PO 03/03/25 15:00 03/04/25 21:51 1 MG Metoprolol Tartrate 12.5 mg TID PO 03/03/25 22:00 03/04/25 13:42 12.5 MG Epoetin Gamal-epbx 10,000 unit MWF@2100 [place] 03/06/25 21:00 Laboratory Results Laboratory Tests 03/05/25 05:56 Chemistry Test 03/05/25 05:56 Albumin 3.9 g/dL (3.2-4.8) Calcium Level 9.1 mg/dL (8.7-10.4) Total Protein 7.4 g/dL (5.7-8.2) LFT Test 03/05/25 05:56 Alanine Aminotransferase (ALT) < 9 U/L (7-40) Alkaline Phosphatase 700 U/L (46-116) H Aspartate Amino Transferase (AST) 11 U/L (13-40) L Total Bilirubin < 0.2 mg/dL (0.2-1.0) L Microbiology Microbiology Date/Time Source Procedure Growth Status 03/03/25 00:46 Nose MRSA Screen - Final Complete Labs and/or images reviewed: Labs reviewed by me, Image(s) reviewed by me Assessment/Plan Assessment/Plan Narrow complex tachycardia Acute chest pain: Rule out Coronary artery disease, Troponin negative x3 Consult for Cardiology Dr. Clements, getting Cardiolite stress test today, echocardiogram result pending Paroxysmal AFib not on any blood thinners secondary to severe anemia requiring blood transfusion ESRD on hemodialysis consult for Dr. Graham group CVA without residual deficits Status post right total knee replacement at [facility] 09/17/2023: History of right shoulder rotator cuff tear Chronic neck pain: Secondary hyperparathyroidism Hypertension: Continue home medication amlodipine and clonidine Generalized weakness secondary to uremia Anemia secondary to chronic kidney disease Anxiety: Xanax 1 mg PO TID Time spent 50 minutes Plan discussed with: Patient My Orders Orders - CAYLA HERNANDEZ MD Procedure Category Date Status Time Complete Blood Count LAB 03/06/25 Verified 05:00 Complete Blood Count LAB 03/07/25 Verified 05:00 Complete Blood Count LAB 03/08/25 Verified 05:00 Complete Blood Count LAB 03/09/25 Verified 05:00 Comprehensive LAB 03/06/25 Verified Metabolic Panel 05:00 Comprehensive LAB 03/07/25 Verified Metabolic Panel 05:00 Comprehensive LAB 03/08/25 Verified Metabolic Panel 05:00 Comprehensive LAB 03/09/25 Verified Metabolic Panel 05:00 Renal DIET 03/05/25 Transmitted Standard(2gna,3gk,Lopho) Breakfast Date of Service: Mar 05, 2025 Billing Provider: CAYLA HERNANDEZ MD Common Visit Codes: [id number] INP/OBS CARE(HIGH) CAYLA HERNANDEZ MD Mar 05, 2025 09:36
--- NOTE | 2025-03-05 11:28 | DVHSR ---
APPROVED REPORT Exam: Nuclear Stress Test BMI: 0 Stress Test Details HR Max Heart Rate (APMHR): 152.630798 bpm Target HR (85% APMHR): 129.740353 bpm BP ECG Stress ECG Conclusion lvef 58% normal perfusion no severe ischemia noted NM EXAM: Myocardial Perfusion REST/STRESS Imaging Protocol: Rest Tc-99m/Stress Tc-99m 2 days Resting Data Rest SPECT myocardial perfusion imaging was performed in supine position 60 minutes following the int ravenous injection of 8.0 mCi of Tc-99m Sestamibi. Time of rest injection: 07:55 Date: 03/04/2025 Time of rest imagin:55 Date: 03/04/2025 Administration Route: IV Administration Site: Right Arm Pharmacologic Stress Pharmacologic stress test was performed by injecting Regadenoson 0.4 mg IV push followed by the intra venous injection of 25.0 mCi of Tc-99m Sestamibi. Time of stress injection: 08:25 Date: 03/05/2025 Time of stress imagin:25 Date: 03/05/2025 Administration Route: IV Administration Site: Right Arm The images were gated to evaluate regional wall motion and calculate left ventricular ejection fracti on. Stress only was performed in the Supine position. Comments Patient originally scheduled for 1 day study, however patient received dialysis and rescheduled for 2 day study. Nuclear Conclusion Nuclear Findings: negative for ischemia lvef 58% normal perfusion no severe ischemia noted
--- NOTE | 2025-03-05 11:34 | DVHSR ---
APPROVED REPORT EXAM: Two-dimensional and M-mode echocardiogram with Doppler and color Doppler. Blood Pressure: 144/78 mmHg INDICATION Evaluate cardiac function RISK FACTORS Height: 5'10", Weight: 148 DIMENSIONS LVDd3.4 (3.8-5.7cm)LA (2D)4.1 (1.9-4.0cm)Aortic Root3.6 (2.0-3.7cm) LVDs2.3 (2.5-4.0cm)LA (MM) (1.9-4.0cm)Aortic Cusp Exc1.0 (1.5-2.0cm) EF (%) 60.0 (55-70%)Rt. Atrium4.1 (1.9-4.0cm)Asc. Aorta cm IVSd1.3 (0.7-1.1cm)RV (D)3.5 (1.8-2.4cm) PWd1.2 (0.7-1.1cm) Mitral Valve MitralMitral Stenosis E wave0.97m/sMV Mean GR.3mmHg A wave1.23m/sMV Peak GR.5mmHg E/A ratio0.82D MVAcm2 DECEL [id number] 1/2 [id number] IVRTmsDop MVA1.70cm2 Aortic Valve Aortic ValveAortic Stenosis V11.17m/Antonio Mean GR.18mmHg V22.97m/Antonio Peak GR.35mmHg LVOT Diameter2.0 (1.8-2.4cm)Doppler AVA1.24cm2 Pulmonic Valve V21.18m/s Tricuspid Valve TR Velocity2.77m/s [id number] Other Information Technically limited study due to body habitus and patient position. Conclusion lvef 60% moderate lvh normal rv function left atrium enlarged no severe valve abnormalites noted mild to moderate aortic stenosis mild mitrals stenosis
--- NOTE | 2025-03-05 22:10 | DVHPN2 ---
Progress Note - Dictate Date Seen: Mar 05, 2025 Medical Necessity Reason Pt with a Central, PICC or Fol: No Subjective Patient was seen and evaluated in follow up. Patient is complaining of chest discomfort. Patient underwent Nuclear Stress Test, EF 58% and is negative for ischemia. Echocardiogram shows an EF of 60%, mild to moderate aortic stenosis. BUN 41, Icu Tech 5.98, Alk Phos 700. Telemetry reviewed. vital signs Vital Sign Date Time Temp Pulse Resp B/P (MAP) Pulse Ox O2 Delivery O2 Flow Rate FiO2 03/05/25 21:47 84 106/64 03/05/25 20:00 Room Air* 0 21 03/05/25 17:00 97.5 17 96 97.5 Total Intake and Output 03/04/25 03/04/25 03/05/25 15:00 23:00 07:00 Intake Total 240 ml 120 ml 520 ml Balance 240 ml 120 ml 520 ml medications Current Medications Medications Dose Ordered Sig/[place] Route Start Time Stop Time Status Last Admin Dose Admin Aspirin 81 mg DAILY PO 03/03/25 10:00 03/05/25 09:00 81 MG Clonidine HCl 0.1 mg Q4HP PRN PO 03/02/25 20:45 Multivit/Ca Carb/ B Cmplx/FA/Prenat 1 tab DAILY PO 03/03/25 10:00 03/05/25 09:00 1 TAB Sevelamer HCl 800 mg TIDWM PO 03/03/25 08:00 03/05/25 18:02 800 MG Sodium Chloride 10 ml Q8HR IV 03/02/25 22:00 03/05/25 21:47 10 ML Acetaminophen/ Hydrocodone Bitart 1 tab Q4HP PRN PO 03/02/25 20:45 03/04/25 22:56 1 TAB Ondansetron HCl 4 mg Q4HP PRN IV 03/02/25 20:45 Docusate Sodium 100 mg BIDPRN PRN PO 03/02/25 20:45 Acetaminophen 650 mg Q6HP PRN PO 03/02/25 20:45 Nitroglycerin 0.4 mg Q5MINP PRN SL 03/02/25 22:00 Morphine Sulfate 2 mg Q30M PRN IV 03/02/25 22:00 Oxycodone/ Acetaminophen 2 tab Q4HP PRN PO 03/03/25 01:30 03/05/25 21:49 2 TAB Alprazolam 1 mg TID PO 03/03/25 15:00 03/05/25 14:42 1 MG Metoprolol Tartrate 12.5 mg TID PO 03/03/25 22:00 03/04/25 13:42 12.5 MG Epoetin Gamal-epbx 10,000 unit MWF@2100 [place] 03/06/25 21:00 objective GENERAL: Alert and oriented x 3. No acute distress. EYES: PERRL, EOMI. Anicteric. HENT: Moist mucous membranes. LUNGS: Clear to auscultation bilaterally. CARDIOVASCULAR: Regular rate and rhythm. Systolic murmur grade V/. ABDOMEN: Soft, nontender and nondistended. EXTREMITIES: No edema. NEUROLOGIC: No focal neurological deficits. SKIN: Warm, dry. laboratory and microbiology Laboratory Tests 03/05/25 05:56 Test 03/05/25 05:56 Range/Units Serum Glucose 92 74-106 mg/dL Problem List Chest pain, rule out coronary ischemia. Rule out structural heart disease. Narrow complex tachycardia, likely atrial flutter, now normal sinus rhythm. Hypertension. Paroxysmal atrial fibrillation (off NOAC due to severe anemia requiring PRBC's). End-stage renal disease on hemodialysis. Acute on chronic anemia. CVA without residual deficits. Thyroid disease. Assessment/Plan Continued all current supportive medical care. Oxycodone and Hernandez for pain. Aspirin, Metoprolol. Clonidine. Nitro SL. Additional plan as per the hospital course. Plan discussed with: Patient NISREEN OWEN MD Mar 05, 2025 22:09
[2025-03-06] VITALS (8 sets, daily range): BP systolic 100–137; BP diastolic 61–84; PULSE 70–84; RESP 17–20; TEMP 97.8–98.4; O2SAT 96–100
[2025-03-06 07:11] LABS: Basophils # (auto) 0 10 ^3/uL (0-0.2); Basophils % (auto) 0.7 % (0.0-2.0); Eosinophils # (auto) 0.6 10 ^3/uL (0-0.8); Eosinophils % (auto) 12.4 % (0.0-7.0); Hematocrit 31.7 % (36.0-46.0); Hemoglobin 10.5 g/dL (12.2-16.2); Lymphocytes # (auto) 1.6 10 ^3/uL (0.4-5.4); Lymphocytes % (auto) 34.4 % (10.0-50.0); Mean Corpuscular Hemoglobin 28.8 pg (28.0-32.0); Mean Corpuscular Hgb Conc. 33.1 g/dL (32.0-36.0); Monocytes # (auto) 0.4 10 ^3/uL (0-1.3); Monocytes % (auto) 8.6 % (0.0-12.0); Neutrophils % (auto) 43.9 % (37.0-80.0); Nucleated Red Blood Cells % 0.3 %; Platelet Count (auto) 237 10^3/uL (140-450); Red Blood Cells 3.65 10^6/uL (4.0-5.20); Red Cell Distribution Width 16.6 % (11.8-14.3); White Blood Cell 4.6 10^3/uL (4.4-10.8)
[2025-03-06 07:20] LABS: Alanine Aminotransferase < 9 U/L (7-40); Alkaline Phosphatase 763 U/L (46-116); Anion Gap 17 (5-15); Aspartate Aminotransferase 10 U/L (13-40); BUN/Creatinine Ratio 6.8 (10.0-20.0); Bilirubin, Total < 0.2 mg/dL (0.2-1.0); Blood Urea Nitrogen 52 mg/dL (9-23); Calcium 9.8 mg/dL (8.7-10.4); Carbon Dioxide 24 mmol/L (20-31); Chloride 95 mmol/L (98-107); Glucose 104 mg/dL (74-106); Potassium 4.3 mmol/L (3.5-5.1); Sodium 136 mmol/L (136-145); Total Protein 7.5 g/dL (5.7-8.2)
[2025-03-06] MEDS: SODIUM CHL 0.9% 1000 ML BAG XX ONE ×2 (09:00→12:22)
--- NOTE | 2025-03-06 10:26 | DVHPN2 ---
Reviewed: Care Plan, H&P, Labs, Medications, Previous Orders, Radiology Changes from previous H/P or p: No Changes Eyes: No Pain, No Vision change, No Conjunctivae inflammation, No Eyelid inflammation, No Other, No Redness ENT: No Ear pain, No Ear discharge, No Nose pain, No Nose discharge, No Nose congestion, No Mouth pain, No Mouth swelling, No Throat pain, No Throat swelling, No Other Cardiovascular: Chest Pain; No Palpitations, No Orthopnea, No Paroxysmal Noc. Dyspnea, No Edema; Lt Headedness; No Other Respiratory: No Cough, No Dry; Shortness of breath; No SOB with excertion, No Wheezing, No Hemoptysis, No Pleuritic Pain, No Sputum, No Other Gastrointestinal: No Nausea, No Vomiting, No Abdominal Pain, No Diarrhea, No Constipation, No Melena, No Hematochezia, No Other Genitourinary: No Dysuria, No Frequency, No Incontinence, No Hematuria, No Retention, No Other Musculoskeletal: No other, No neck pain, No shoulder pain, No arm pain, No back pain, No hand pain, No leg pain, No foot pain Skin: No Rash, No Lesions, No Jaundice, No Bruising, No Other Objective Vitals Vital Signs Date Time Temp Pulse Resp B/P (MAP) Pulse Ox O2 Delivery O2 Flow Rate FiO2 03/06/25 09:00 98.0 78 17 124/76 (92) 100 98.0 03/06/25 08:00 Room Air* 0 21 Intake/Output Intake and Output 03/06/25 07:00 Intake Total 1200 ml Balance 1200 ml Intake Oral 1200 ml # Voids 2 # Bowel Movements 1 Medications Current Medications Medications Dose Ordered Sig/[place] Route Start Time Stop Time Status Last Admin Dose Admin Aspirin 81 mg DAILY PO 03/03/25 10:00 03/06/25 08:47 81 MG Clonidine HCl 0.1 mg Q4HP PRN PO 03/02/25 20:45 Multivit/Ca Carb/ B Cmplx/FA/Prenat 1 tab DAILY PO 03/03/25 10:00 03/06/25 08:47 1 TAB Sevelamer HCl 800 mg TIDWM PO 03/03/25 08:00 03/06/25 08:47 800 MG Sodium Chloride 10 ml Q8HR IV 03/02/25 22:00 03/06/25 06:59 10 ML Acetaminophen/ Hydrocodone Bitart 1 tab Q4HP PRN PO 03/02/25 20:45 03/04/25 22:56 1 TAB Ondansetron HCl 4 mg Q4HP PRN IV 03/02/25 20:45 Docusate Sodium 100 mg BIDPRN PRN PO 03/02/25 20:45 Acetaminophen 650 mg Q6HP PRN PO 03/02/25 20:45 Nitroglycerin 0.4 mg Q5MINP PRN SL 03/02/25 22:00 Morphine Sulfate 2 mg Q30M PRN IV 03/02/25 22:00 Oxycodone/ Acetaminophen 2 tab Q4HP PRN PO 03/03/25 01:30 03/06/25 08:47 2 TAB Metoprolol Tartrate 12.5 mg TID PO 03/03/25 22:00 03/06/25 06:58 12.5 MG Epoetin Gamal-epbx 10,000 unit MWF@2100 [place] 03/06/25 21:00 Lorazepam 1 mg Q8HP PRN PO 03/06/25 10:30 UNV Laboratory Results Laboratory Tests 03/06/25 06:13 Chemistry Test 03/06/25 06:13 Albumin 4.0 g/dL (3.2-4.8) Calcium Level 9.8 mg/dL (8.7-10.4) Total Protein 7.5 g/dL (5.7-8.2) LFT Test 03/06/25 06:13 Alanine Aminotransferase (ALT) < 9 U/L (7-40) Alkaline Phosphatase 763 U/L (46-116) H Aspartate Amino Transferase (AST) 10 U/L (13-40) L Total Bilirubin < 0.2 mg/dL (0.2-1.0) L Microbiology Microbiology Date/Time Source Procedure Growth Status 03/03/25 00:46 Nose MRSA Screen - Final Complete Labs and/or images reviewed: Labs reviewed by me, Image(s) reviewed by me Assessment/Plan Assessment/Plan Narrow complex tachycardia Acute chest pain: Rule out Coronary artery disease, Troponin negative x3 Consult for Cardiology Dr. Clements, Echocardiogram 60 % ejection fraction Paroxysmal AFib not on any blood thinners secondary to severe anemia requiring blood transfusion ESRD on hemodialysis consult for Dr. Graham group CVA without residual deficits Status post right total knee replacement at [facility] 09/17/2023: History of right shoulder rotator cuff tear Chronic neck pain: Secondary hyperparathyroidism Hypertension: Continue home medication amlodipine and clonidine Generalized weakness secondary to uremia Anemia secondary to chronic kidney disease Anxiety: Xanax changed to Ativan per patient's request Right-sided headache: CT head ordered Time spent 50 minutes Physical therapy ordered Plan discussed with: Patient My Orders Orders - CAYLA HERNANDEZ MD Procedure Category Date Status Time Head Without Contrast CT 03/06/25 Logged 10:20 Covid19 Antigen [place] LAB 03/06/25 Logged Lorazepam Tablet PHA 03/06/25 Logged (Ativan Tablet) 10:30 Pt Request For Service PT 03/06/25 Verified 10:21 Date of Service: Mar 06, 2025 Billing Provider: CAYLA HERNANDEZ MD Common Visit Codes: [id number] CARE 30-74 MIN CAYLA HERNANDEZ MD Mar 06, 2025 10:26
[2025-03-06] MEDS: LORazepam 0.5 MG TAB PO PRN (14:18)
--- NOTE | 2025-03-06 14:53 | DVHPN2 ---
Progress Note - Dictate Date Seen: Mar 06, 2025 Medical Necessity Reason Pt with a Central, PICC or Fol: No Subjective Patient was seen and evaluated in follow up. Patient is complaining of a headache. Patient receiving HD. BUN 52, DECAL DECORATOR 7.68, Alk phos 763. CT head is pending. Telemetry reviewed. vital signs Vital Sign Date Time Temp Pulse Resp B/P (MAP) Pulse Ox O2 Delivery O2 Flow Rate FiO2 03/06/25 09:00 98.0 78 17 124/76 (92) 100 98.0 03/06/25 08:00 Room Air* 0 21 Total Intake and Output 03/05/25 03/05/25 03/06/25 15:00 23:00 07:00 Intake Total 1000 ml 200 ml Balance 1000 ml 200 ml medications Current Medications Medications Dose Ordered Sig/I[place] Route Start Time Stop Time Status Last Admin Dose Admin Aspirin 81 mg DAILY PO 03/03/25 10:00 03/06/25 08:47 81 MG Clonidine HCl 0.1 mg Q4HP PRN PO 03/02/25 20:45 Multivit/Ca Carb/ B Cmplx/FA/Prenat 1 tab DAILY PO 03/03/25 10:00 03/06/25 08:47 1 TAB Sevelamer HCl 800 mg TIDWM PO 03/03/25 08:00 03/06/25 12:52 800 MG Sodium Chloride 10 ml Q8HR IV 03/02/25 22:00 03/06/25 06:59 10 ML Acetaminophen/ Hydrocodone Bitart 1 tab Q4HP PRN PO 03/02/25 20:45 03/04/25 22:56 1 TAB Ondansetron HCl 4 mg Q4HP PRN IV 03/02/25 20:45 Docusate Sodium 100 mg BIDPRN PRN PO 03/02/25 20:45 Acetaminophen 650 mg Q6HP PRN PO 03/02/25 20:45 Nitroglycerin 0.4 mg Q5MINP PRN SL 03/02/25 22:00 Morphine Sulfate 2 mg Q30M PRN IV 03/02/25 22:00 Oxycodone/ Acetaminophen 2 tab Q4HP PRN PO 03/03/25 01:30 03/06/25 12:53 2 TAB Metoprolol Tartrate 12.5 mg TID PO 03/03/25 22:00 03/06/25 06:58 12.5 MG Epoetin Gamal-epbx 10,000 unit MWF@2100 [place] 03/06/25 21:00 Lorazepam 1 mg Q8HP PRN PO 03/06/25 10:30 objective GENERAL: Alert and oriented x 3. No acute distress. EYES: PERRL, EOMI. Anicteric. HENT: Moist mucous membranes. LUNGS: Clear to auscultation bilaterally. CARDIOVASCULAR: Regular rate and rhythm. Systolic murmur grade V/. ABDOMEN: Soft, nontender and nondistended. EXTREMITIES: No edema. NEUROLOGIC: No focal neurological deficits. SKIN: Warm, dry. laboratory and microbiology Laboratory Tests 03/06/25 06:13 Test 03/06/25 06:13 Range/Units Serum Glucose 104 74-106 mg/dL Problem List Chest pain, rule out coronary ischemia. Rule out structural heart disease. Narrow complex tachycardia, likely atrial flutter, now normal sinus rhythm. Hypertension. Paroxysmal atrial fibrillation (off NOAC due to severe anemia requiring PRBC's). End-stage renal disease on hemodialysis. Acute on chronic anemia. CVA without residual deficits. Thyroid disease. Assessment/Plan Continued all current supportive medical care. Oxycodone and Independence for pain. Aspirin, Metoprolol. Clonidine. Nitro SL. Additional plan as per the hospital course. Plan discussed with: Patient NISREEN OWEN MD Mar 06, 2025 13:30
--- NOTE | 2025-03-06 15:19 | DVH ---
EXAM: CT HEAD WITHOUT CONTRAST INDICATION: Right-sided headache TECHNIQUE: CT of the head without intravenous contrast. Radiation Dose : 1. Head: CT Dose: CTDI volume is 59.94 mGy. Dose-length product is 1180.89 mGy*cm The dose indicators for CT are the volume Computed Tomography (CT) Dose Index (CTDIvol) and the Dose Length Product (DLP), and are measured in units of mGy and mGy-cm, respectively. These indicators are not patient dose, but values generated from the CT scanner acquisition factors. The report includes radiation exposure data for exposures received during this examination. COMPARISON: CT HEAD WITHOUT CONTRAST on DOS: 12/14/23 FINDINGS: There is no evidence of acute intracranial hemorrhage, extra-axial collection, mass effect, midline s hift, herniation or hydrocephalus. The ventricles, sulci and cisterns are age appropriate. The upton-white differentiation is intact. Patchy periventricular and subcortical white matter hypoattenuation is nonspecific but may be related to small vessel ischemic disease. High density embolization material is seen in the right frontotemporal brain. The visualized paranasal sinuses and mastoid air cells are clear. The surrounding soft tissues and osseous structures are unremarkable. IMPRESSION: 1. No acute intracranial abnormality. Radiation optimization: All CT scans at this facility use at least one of these dose optimization karma hniques: automated exposure control mA and/or kV adjustment per patient size (includes targeted exam s where dose is matched to clinical indication) or iterative reconstruction.
--- NOTE | 2025-03-06 18:30 | DVHPN2 ---
Progress Note Date Seen: Mar 06, 2025 Medical Necessity Reason Pt with a Central, PICC or Fol: No Objective vital signs Vital Sign Date Time Temp Pulse Resp B/P (MAP) Pulse Ox O2 Delivery O2 Flow Rate FiO2 03/06/25 17:00 97.9 84 20 100/61 (74) 98 97.9 03/06/25 08:00 Room Air* 0 21 Total Intake and Output 03/05/25 03/05/25 03/06/25 15:00 23:00 07:00 Intake Total 1000 ml 200 ml Balance 1000 ml 200 ml medications Current Medications Medications Dose Ordered Sig/[place] Route Start Time Stop Time Status Last Admin Dose Admin Aspirin 81 mg DAILY PO 03/03/25 10:00 03/06/25 08:47 81 MG Clonidine HCl 0.1 mg Q4HP PRN PO 03/02/25 20:45 Multivit/Ca Carb/ B Cmplx/FA/Prenat 1 tab DAILY PO 03/03/25 10:00 03/06/25 08:47 1 TAB Sevelamer HCl 800 mg TIDWM PO 03/03/25 08:00 03/06/25 12:52 800 MG Sodium Chloride 10 ml Q8HR IV 03/02/25 22:00 03/06/25 14:19 10 ML Acetaminophen/ Hydrocodone Bitart 1 tab Q4HP PRN PO 03/02/25 20:45 03/04/25 22:56 1 TAB Ondansetron HCl 4 mg Q4HP PRN IV 03/02/25 20:45 Docusate Sodium 100 mg BIDPRN PRN PO 03/02/25 20:45 Acetaminophen 650 mg Q6HP PRN PO 03/02/25 20:45 Nitroglycerin 0.4 mg Q5MINP PRN SL 03/02/25 22:00 Morphine Sulfate 2 mg Q30M PRN IV 03/02/25 22:00 Oxycodone/ Acetaminophen 2 tab Q4HP PRN PO 03/03/25 01:30 03/06/25 12:53 2 TAB Metoprolol Tartrate 12.5 mg TID PO 03/03/25 22:00 03/06/25 06:58 12.5 MG Epoetin Gamal-epbx 10,000 unit MWF@2100 [place] 03/06/25 21:00 Lorazepam 1 mg Q8HP PRN PO 03/06/25 10:30 03/06/25 14:18 1 MG Examination: GENERAL:Normal, CVS:Normal, SKIN:Normal laboratory and microbiology Laboratory Tests 03/06/25 06:13 Test 03/06/25 06:13 Range/Units Serum Glucose 104 74-106 mg/dL Microbiology Date/Time Source Procedure Growth Status 03/03/25 00:46 Nose MRSA Screen - Final Complete Problem List/Assessment/Plan Problem List/Assessment/Plan ESRD on HD, former DDRT HTN Chest pain stress test negative HD today tolerated Strict I&Os Renal diet Blood pressure control Cardiology following Epogen MWF Plan discussed with: Patient My Orders My Orders Orders - DESTINY QUILES MD Procedure Category Date Status Time Hemodialysis Orders ORDERS 03/06/25 Transmitted 08:56 DESTINY QUILES MD Mar 06, 2025 18:30
[2025-03-06 18:49] LABS: COVID19 ANTIGEN SOFIA FIA NEGATIVE (NEGATIVE)
[2025-03-06] MEDS: EPOETIN ALFA-EPBX 10,000 UNIT/1ML VIAL SC SCH (22:50)
[2025-03-07] VITALS (7 sets, daily range): BP systolic 107–139; BP diastolic 62–81; PULSE 60–74; RESP 16–18; TEMP 97.8–98.3; O2SAT 96–100
[2025-03-07 06:53] LABS: Basophils # (auto) 0 10 ^3/uL (0-0.2); Basophils % (auto) 0.7 % (0.0-2.0); Eosinophils # (auto) 0.5 10 ^3/uL (0-0.8); Eosinophils % (auto) 10.8 % (0.0-7.0); Hematocrit 31.3 % (36.0-46.0); Hemoglobin 10.2 g/dL (12.2-16.2); Lymphocytes # (auto) 1.4 10 ^3/uL (0.4-5.4); Lymphocytes % (auto) 29.7 % (10.0-50.0); Mean Corpuscular Hemoglobin 28.3 pg (28.0-32.0); Mean Corpuscular Hgb Conc. 32.4 g/dL (32.0-36.0); Mean Corpuscular Volume 87.3 fL (80.0-100.0); Monocytes # (auto) 0.5 10 ^3/uL (0-1.3); Monocytes % (auto) 9.4 % (0.0-12.0); Neutrophils # (auto) 2.4 10 ^3/uL (1.6-8.6); Neutrophils % (auto) 49.4 % (37.0-80.0); Nucleated Red Blood Cells % 0.1 %; Platelet Count (auto) 263 10^3/uL (140-450); Red Blood Cells 3.59 10^6/uL (4.0-5.20); Red Cell Distribution Width 16.6 % (11.8-14.3); White Blood Cell 4.8 10^3/uL (4.4-10.8)
[2025-03-07 07:07] LABS: Anion Gap 13 (5-15); BUN/Creatinine Ratio 6.7 (10.0-20.0); Carbon Dioxide 24 mmol/L (20-31); Chloride 99 mmol/L (98-107); Glucose 94 mg/dL (74-106); Potassium 4.9 mmol/L (3.5-5.1)
[2025-03-07 07:08] LABS: Aspartate Aminotransferase 17 U/L (13-40); Total Protein 6.8 g/dL (5.7-8.2)
[2025-03-07 07:09] LABS: Albumin 3.6 g/dL (3.2-4.8)
[2025-03-07 07:10] LABS: Blood Urea Nitrogen 37 mg/dL (9-23); Sodium 136 mmol/L (136-145)
[2025-03-07 07:11] LABS: Alanine Aminotransferase < 9 U/L (7-40); Bilirubin, Total 0.2 mg/dL (0.2-1.0)
[2025-03-07 07:43] LABS: Alkaline Phosphatase 781 U/L (46-116)
--- NOTE | 2025-03-07 11:13 | DVHPN2 ---
Reviewed: Care Plan, H&P, Labs, Medications, Previous Orders, Radiology Changes from previous H/P or p: No Changes Eyes: No Pain, No Vision change, No Conjunctivae inflammation, No Eyelid inflammation, No Other, No Redness ENT: No Ear pain, No Ear discharge, No Nose pain, No Nose discharge, No Nose congestion, No Mouth pain, No Mouth swelling, No Throat pain, No Throat swelling, No Other Cardiovascular: Chest Pain; No Palpitations, No Orthopnea, No Paroxysmal Noc. Dyspnea, No Edema; Lt Headedness; No Other Respiratory: No Cough, No Dry; Shortness of breath; No SOB with excertion, No Wheezing, No Hemoptysis, No Pleuritic Pain, No Sputum, No Other Gastrointestinal: No Nausea, No Vomiting, No Abdominal Pain, No Diarrhea, No Constipation, No Melena, No Hematochezia, No Other Genitourinary: No Dysuria, No Frequency, No Incontinence, No Hematuria, No Retention, No Other Musculoskeletal: No other, No neck pain, No shoulder pain, No arm pain, No back pain, No hand pain, No leg pain, No foot pain Skin: No Rash, No Lesions, No Jaundice, No Bruising, No Other Objective Vitals Vital Signs Date Time Temp Pulse Resp B/P (MAP) Pulse Ox O2 Delivery O2 Flow Rate FiO2 03/07/25 08:50 98.3 67 18 107/67 (80) 97 98.3 03/07/25 08:00 Room Air* 0 21 Intake/Output Intake and Output 03/07/25 07:00 Intake Total 1600 ml Balance 1600 ml Intake Oral 1600 ml # Voids 1 Medications Current Medications Medications Dose Ordered Sig/[place] Route Start Time Stop Time Status Last Admin Dose Admin Aspirin 81 mg DAILY PO 03/03/25 10:00 03/07/25 10:13 81 MG Clonidine HCl 0.1 mg Q4HP PRN PO 03/02/25 20:45 Multivit/Ca Carb/ B Cmplx/FA/Prenat 1 tab DAILY PO 03/03/25 10:00 03/07/25 10:13 1 TAB Sevelamer HCl 800 mg TIDWM PO 03/03/25 08:00 03/07/25 10:12 800 MG Sodium Chloride 10 ml Q8HR IV 03/02/25 22:00 03/07/25 06:00 10 ML Acetaminophen/ Hydrocodone Bitart 1 tab Q4HP PRN PO 03/02/25 20:45 03/04/25 22:56 1 TAB Ondansetron HCl 4 mg Q4HP PRN IV 03/02/25 20:45 Docusate Sodium 100 mg BIDPRN PRN PO 03/02/25 20:45 Acetaminophen 650 mg Q6HP PRN PO 03/02/25 20:45 Nitroglycerin 0.4 mg Q5MINP PRN SL 03/02/25 22:00 Morphine Sulfate 2 mg Q30M PRN IV 03/02/25 22:00 Oxycodone/ Acetaminophen 2 tab Q4HP PRN PO 03/03/25 01:30 03/07/25 10:14 2 TAB Metoprolol Tartrate 12.5 mg TID PO 03/03/25 22:00 03/07/25 06:01 12.5 MG Epoetin Gamal-epbx 10,000 unit MWF@2100 SC 03/06/25 21:00 03/06/25 22:50 10,000 UNIT Lorazepam 1 mg Q8HP PRN PO 03/06/25 10:30 03/07/25 10:13 1 MG Laboratory Results Laboratory Tests 03/07/25 06:18 Chemistry Test 03/07/25 06:18 Albumin 3.6 g/dL (3.2-4.8) Calcium Level 9.0 mg/dL (8.7-10.4) Total Protein 6.8 g/dL (5.7-8.2) LFT Test 03/07/25 06:18 Alanine Aminotransferase (ALT) < 9 U/L (7-40) Alkaline Phosphatase 781 U/L (46-116) H Aspartate Amino Transferase (AST) 17 U/L (13-40) Total Bilirubin 0.2 mg/dL (0.2-1.0) Microbiology Microbiology Date/Time Source Procedure Growth Status 03/03/25 00:46 Nose MRSA Screen - Final Complete Labs and/or images reviewed: Labs reviewed by me, Image(s) reviewed by me Assessment/Plan Assessment/Plan Narrow complex tachycardia Acute chest pain: Coronary artery disease ruled out, Troponin negative x3 Consult for Cardiology Dr. Clements, Echocardiogram 60 % ejection fraction Cardiolite stress test negative Paroxysmal AFib not on any blood thinners secondary to severe anemia requiring blood transfusion ESRD on hemodialysis consult for Dr. Santos alanis patient receiving hemodialysis History of CVA without residual deficits Status post right total knee replacement at [facility] 09/17/2023: History of right shoulder rotator cuff tear Chronic neck pain: Secondary hyperparathyroidism Hypertension: Continue home medication amlodipine and clonidine Generalized weakness secondary to uremia Anemia secondary to chronic kidney disease Anxiety: Continue Ativan Right-sided headache: CT head negative Time spent 50 minutes Physical therapy ordered Plan discussed with: Patient, Other (RN) Date of Service: Mar 07, 2025 Billing Provider: CAYLA HERNANDEZ MD Common Visit Codes: [id number] INP/OBS CARE(HIGH) CAYLA HERNANDEZ MD Mar 07, 2025 11:13
--- NOTE | 2025-03-07 11:26 | DVHDS2 ---
Discharge Summary Date of Admission Mar 02, 2025 at 21:57 Date of Discharge: Mar 07, 2025 Admitting Diagnosis Chest pain Wounds: None Labs/Diagnostic Data: Laboratory Results Test 03/07/25 06:18 03/06/25 17:10 03/04/25 05:54 03/03/25 04:26 White Blood Count 4.8 10^3/uL (4.4-10.8) Red Blood Count 3.59 10^6/uL (4.0-5.20) Hemoglobin 10.2 g/dL (12.2-16.2) Hematocrit 31.3 % (36.0-46.0) Mean Corpuscular Volume 87.3 fL (80.0-100.0) Mean Corpuscular Hemoglobin 28.3 pg (28.0-32.0) Mean Corpuscular Hemoglobin Concent 32.4 g/dL (32.0-36.0) Red Cell Distribution Width 16.6 % (11.8-14.3) Platelet Count 263 10^3/uL (140-450) Mean Platelet Volume 7.7 fL (6.9-10.8) Neutrophils (%) (Auto) 49.4 % (37.0-80.0) Lymphocytes (%) (Auto) 29.7 % (10.0-50.0) Monocytes (%) (Auto) 9.4 % (0.0-12.0) Eosinophils (%) (Auto) 10.8 % (0.0-7.0) Basophils (%) (Auto) 0.7 % (0.0-2.0) Neutrophils # (Auto) 2.4 10 ^3/uL (1.6-8.6) Lymphocytes # (Auto) 1.4 10 ^3/uL (0.4-5.4) Monocytes # (Auto) 0.5 10 ^3/uL (0-1.3) Eosinophils # (Auto) 0.5 10 ^3/uL (0-0.8) Basophils # (Auto) 0 10 ^3/uL (0-0.2) Nucleated Red Blood Cells 0.1 % Sodium Level 136 mmol/L (136-145) Potassium Level 4.9 mmol/L (3.5-5.1) Chloride Level 99 mmol/L (98-107) Carbon Dioxide Level 24 mmol/L (20-31) Anion Gap 13 (5-15) Blood Urea Nitrogen 37 mg/dL (9-23) Creatinine 5.52 mg/dL (0.550-1.02) Glomerular Filtration Rate Calc 8 mL/min (>90) BUN/Creatinine Ratio 6.7 (10.0-20.0) Serum Glucose 94 mg/dL (74-106) Calcium Level 9.0 mg/dL (8.7-10.4) Total Bilirubin 0.2 mg/dL (0.2-1.0) Aspartate Amino Transferase (AST) 17 U/L (13-40) Alanine Aminotransferase (ALT) < 9 U/L (7-40) Alkaline Phosphatase 781 U/L (46-116) Total Protein 6.8 g/dL (5.7-8.2) Albumin 3.6 g/dL (3.2-4.8) SARS-CoV-2 Antigen (Rapid) Negative (NEGATIVE) Phosphorus Level 5.1 mg/dL (2.4-5.1) Iron Level 74 ug/dL (50-170) Total Iron Binding Capacity 176 ug/dL (250-425) Percent Iron Saturation 42.0 % (15-50) Ferritin 1714.2 ng/mL (10-291) Hemoglobin A1c 5.1 % A1C (<5.7) Magnesium Level 2.3 mg/dL (1.6-2.6) Triglycerides Level 119 mg/dL (< 150) Cholesterol Level 138 mg/dL (< 200) LDL Cholesterol 68 mg/dL (< 100) HDL Cholesterol 39 mg/dL (40-59) Thyroid Stimulating Hormone (TSH) 0.90 uIU/mL (0.55-4.78) Test 03/02/25 16:54 03/02/25 13:56 Troponin I High Sensitivity 32 ng/L (</=34) B-Type Natriuretic Peptide 213.92 pg/mL (0-100) Other Laboratory Tests 03/07/25 06:18 Brief Hx & Hospital Course: 69-year-old female with a history of ESRD on hemodialysis Tuesday history of CVA without residual deficits status post right total knee replacement at [facility] 2022 history of right shoulder rotator cuff tear chronic neck pain chronic back pain hypotension anemia of chronic disease anxiety came in for chest pain. Seen by boat person Dr. Irving Clements troponin negative x3 echocardiogram 60 percent ejection fraction Cardiolite stress test negative found to have paroxysmal AFib patient is not on any blood thinners secondary to severe anemia requiring blood transfusions. Patient received hemodialysis while in the hospital . Patient received physical therapy patient complains of extreme weakness and unable to walk physical therapy recommended nursing home facility placement . Being discharged to [facility]. CT head was negative . CT LS spine result pending Consults/Reason for consult Cardiology Dr. Irving Clements Operations or Procedures Echocardiogram CT head CT LS spine Condition at Discharge: Poor Final Diagnosis/Problems List Narrow complex tachycardia Acute chest pain: Coronary artery disease ruled out, Troponin negative x3 Consult for Cardiology Dr. Clements, Echocardiogram 60 % ejection fraction Cardiolite stress test negative Paroxysmal AFib not on any blood thinners secondary to severe anemia requiring blood transfusion ESRD on hemodialysis consult for Dr. Graham group patient receiving hemodialysis History of CVA without residual deficits Status post right total knee replacement at [facility] 09/17/2023: History of right shoulder rotator cuff tear Chronic neck pain: Secondary hyperparathyroidism Hypertension: Continue home medication amlodipine and clonidine Generalized weakness secondary to uremia Anemia secondary to chronic kidney disease Anxiety: Continue Ativan Right-sided headache: CT head negative Discharge Disposition: Snf Facility Discharge Instruct/Medications Diet: Renal Activity: Light activity Follow Up/Referral: [facility] Medications: See list 39 (Time taken for discharge summary 39 minutes) Discharge Statement: "Patient was advised to return to the ER or call 911 if any headaches, dizziness, shortness of breath, chest pain, abdominal pain, bleeding, fevers, or worsening of medical condition. Patient was counseled about treatment plan, medications, possible side effects, patientverbalized understanding. All questions were answered to the best of my ability. This discharge took greater then 30 minutes in planning, reviewing documentation, counseling the patient, and discussing with other team members." ASSESSMENT ASSESSMENT Hospital Course Improved marginally Assessment Narrow complex tachycardia Acute chest pain: Coronary artery disease ruled out, Troponin negative x3 Consult for Cardiology Dr. Clements, Echocardiogram 60 % ejection fraction Cardiolite stress test negative Paroxysmal AFib not on any blood thinners secondary to severe anemia requiring blood transfusion ESRD on hemodialysis consult for Dr. Santos alanis patient receiving hemodialysis History of CVA without residual deficits Status post right total knee replacement at [facility] 09/17/2023: History of right shoulder rotator cuff tear Chronic neck pain: Secondary hyperparathyroidism Hypertension: Continue home medication amlodipine and clonidine Generalized weakness secondary to uremia Anemia secondary to chronic kidney disease Anxiety: Continue Ativan Right-sided headache: CT head negative Date of Service: Mar 07, 2025 Billing Provider: CAYLA HERNANDEZ MD Common Visit Codes: [id number] DISCH DAY >30min CAYLA HERNANDEZ MD Mar 07, 2025 11:26
--- NOTE | 2025-03-07 12:33 | DVH ---
CT LS SPINE WO CONTRAST Indication: Bilateral leg weakness EXAM DATE: 03/07/2025 11:22 AM COMPARISON: None TECHNIQUE: CT of the lumbar spine without intravenous contrast. RADIATION DOSE: CTDIvol: 28.92 mGy, DLP: 920.65 mGy*cm FINDINGS: There is diffuse sclerosis of the thoracic, lumbar and sacral vertebral bodies. Endplate irregularity / erosive changes at L2-3 and less so L1-2. Moderate multilevel disc space narrowing. 6 mm disc protr usion at L2-3.5 mm disc protrusion L3-4, L4-5. Lumbar levocurvature. Tiny bilateral pleural effusions Bilateral renal cystic disease, parenchymal atrophy. Right renal hyperdense lesion measuring 2 cm. Ao rtic atherosclerotic disease. 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 Large calcification in the region of the sigmoid colon measuring 4.1 cm as well as the rectum max uring 2.6 cm IMPRESSION: 1. Diffuse osseous sclerosis which can be secondary to renal osteodystrophy, metastases, neoplasm, me tabolic disorders. Correlate clinically. 2. Moderate lumbar degenerative disc disease. 3. Endplate irregularity/ erosive changes at L2-3 and less so L1-2. Recommend obtaining MRI lumbar s pine with and without contrast to evaluate for etiologies including infection/ discitis osteomyelitis . 4. Right renal hyperdense lesion measuring 2 cm, concerning for renal mass/ neoplasm. Recommend MRI abdomen with and without contrast. 5. Large calcification in the region of the sigmoid colon measuring 4.1 cm. Recommend GI consultatio n for further evaluation. 6. 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
--- NOTE | 2025-03-07 14:27 | DVHPN2 ---
Progress Note Date Seen: Mar 07, 2025 Medical Necessity Reason Pt with a Central, PICC or Fol: No Subjective Review of Systems: Deferred Objective vital signs Vital Sign Date Time Temp Pulse Resp B/P (MAP) Pulse Ox O2 Delivery O2 Flow Rate FiO2 03/07/25 13:00 97.9 70 17 122/75 (91) 99 97.9 03/07/25 08:00 Room Air* 0 21 Total Intake and Output 03/06/25 03/06/25 03/07/25 14:59 22:59 06:59 Intake Total 1200 ml 400 ml Balance 1200 ml 400 ml medications Current Medications Medications Dose Ordered Sig/[place] Route Start Time Stop Time Status Last Admin Dose Admin Aspirin 81 mg DAILY PO 03/03/25 10:00 03/07/25 10:13 81 MG Clonidine HCl 0.1 mg Q4HP PRN PO 03/02/25 20:45 Multivit/Ca Carb/ B Cmplx/FA/Prenat 1 tab DAILY PO 03/03/25 10:00 03/07/25 10:13 1 TAB Sevelamer HCl 800 mg TIDWM PO 03/03/25 08:00 03/07/25 10:12 800 MG Sodium Chloride 10 ml Q8HR IV 03/02/25 22:00 03/07/25 06:00 10 ML Acetaminophen/ Hydrocodone Bitart 1 tab Q4HP PRN PO 03/02/25 20:45 03/04/25 22:56 1 TAB Ondansetron HCl 4 mg Q4HP PRN IV 03/02/25 20:45 Docusate Sodium 100 mg BIDPRN PRN PO 03/02/25 20:45 Acetaminophen 650 mg Q6HP PRN PO 03/02/25 20:45 Nitroglycerin 0.4 mg Q5MINP PRN SL 03/02/25 22:00 Morphine Sulfate 2 mg Q30M PRN IV 03/02/25 22:00 Oxycodone/ Acetaminophen 2 tab Q4HP PRN PO 03/03/25 01:30 03/07/25 10:14 2 TAB Metoprolol Tartrate 12.5 mg TID PO 03/03/25 22:00 03/07/25 06:01 12.5 MG Epoetin Gamal-epbx 10,000 unit MWF@2100 [place] 03/06/25 21:00 03/06/25 22:50 10,000 UNIT Lorazepam 1 mg Q8HP PRN PO 03/06/25 10:30 03/07/25 10:13 1 MG Examination: GENERAL:Normal, CVS:Normal, SKIN:Normal laboratory and microbiology Laboratory Tests 03/07/25 06:18 Test 03/07/25 06:18 Range/Units Serum Glucose 94 74-106 mg/dL Microbiology Date/Time Source Procedure Growth Status 03/03/25 00:46 Nose MRSA Screen - Final Complete Problem List/Assessment/Plan Problem List/Assessment/Plan ESRD on HD, former DDRT HTN Chest pain stress test negative Strict I&Os Renal diet Blood pressure control Cardiology following Epogen MWF Plan discussed with: Patient DESTINY QUILES MD Mar 07, 2025 14:27
--- NOTE | 2025-03-07 17:47 | DVH ---
PROCEDURE: MRI MRI ABDOMEN NO CONTRAST Indication: RENAL MASS COMPARISON: CT of the lumbar spine from today TECHNIQUE: Multiplanar multisequence images of the abdomen are obtained. FINDINGS: Limited characterization without contrast. Adrenal glands, spleen unremarkable.m there are multiple pancreatic T2 bright lesions including pancr eatic body T2 bright lesion measuring 8 mm, pancreatic tail lesions measuring 8 mm, 10 mm. Bilateral renal parenchymal atrophy and cystic disease. There is redemonstration of a right renal com plex lesion measuring 2. cm with intermediate T2 signal. There is increased T1 signal within this les ion which could represent hemorrhagic/proteinaceous cyst again in enhancing mass/ neoplasm can not be ruled out No evidence for cholelithiasis. The stomach is partially distended. Imaged small bowel loops normal in caliber. Thoracolumbar levocurvature. Left ovarian/ adnexal cystic lesion measuring 1.5 cm. Left lower quadrant transplant kidney not completely visualized. IMPRESSION: 1. Right renal complex lesion measuring 2 cm with intermediateT2 signal and increased T1 signal, coul d represent hemorrhagic/proteinaceous cyst however again a renal neoplasm can not be ruled out. Recom mend MRI abdomen with and without contrast to further evaluate. 2. Multiple pancreatic T2 bright lesions measuring up to 10 mm with differential considerations inclu ding pancreatic cyst, pseudocyst, IPMN, cystic neoplasm. This can also be further evaluated on MRI ab domen with and without contrast. 3. Renal parenchymal atrophy and cystic disease. 4. Other findings as described.
--- NOTE | 2025-03-07 18:10 | DVH ---
PROCEDURE: MRI LUMBAR SPINE WO CONTRAST Indication: Erosions L2 and L3 COMPARISON: CT lumbar spine from today TECHNIQUE: Multiplanar multisequence images of the the lumbar spine are obtained. FINDINGS: For the purpose of this examination, there are 5 lumbar vertebral body types counting from the lumbos acral junction. The lumbar vertebral body heights are maintained. Moderate multilevel disc space narrowing and desic cation. Degenerative edematous endplate changes at L2-3. Otherwise, no abnormal marrow edema. Diffusely decreased T1 signal within the marrow. Conus terminates at the level of the L1 vertebral b anusha level. Thoracolumbar levocurvature. T12-L1: No spinal canal stenosis. Mild facet and flavum hypertrophy. Qpsf-kv-sfajdqfn bilateral neura l foraminal stenosis. L1-2: 2 mm disc protrusion. Mild facet and flavum hypertrophy. No spinal canal stenosis. Rcwn-ep-higk rate bilateral neural foraminal stenosis, lusrt-xgtzcyx-nhfw-left. L2-3: 4 mm disc protrusion. Moderate facet and flavum hypertrophy. No spinal canal stenosis. Moderate right and gxkw-sj-zlomekcq left neural foraminal stenosis secondary to facet and uncovertebral hyper trophy. L3-4: 4 mm disc protrusion. Kogp-ps-xywtimqf facet and flavum hypertrophy. No spinal canal stenosis. Njcc-er-nddvjqum bilateral neural foraminal stenosis. L4-5: 3 mm disc protrusion. Qzfc-ez-xzcbtcam facet and flavum hypertrophy. No spinal canal stenosis. Moderate bilateral neural foraminal stenosis. L5-S1: 3 mm disc protrusion. Moderate facet and flavum hypertrophy. No spinal canal stenosis. Mild-to -moderate bilateral neural foraminal stenosis. Bilateral renal parenchymal atrophy and cysticm disease. Redemonstrated complex right renal lesion m easuring 2.2 cm. Large calcified stool ball / stricture in the sigmoid colon as previously described. IMPRESSION: 1. Lhal-om-zrwaqsdc lumbar degenerative disc disease . 2. Diffusely decreased marrow signal within the thoracolumbar spine, sacrum, likely secondary to willow l osteodystrophy/marrow replacement. Other considerations include other metabolic processes, myelofib rosis, myelodysplasia, malignancy. 3. No high-grade spinal canal stenosis. Pvvt-su-hetrjfht multilevel neural foraminal stenosis as desc ribed. 4. No evidence for infection/ discitis/osteomyelitis. 5. Large calcified stool ball / stricture in the sigmoid colon as previously described. 6. Complex right renal lesion as previously described. Recommend MRI Abdomen with and without contras t to evaluate. 7. Other findings as described.
[2025-03-07] MEDS: DOCUSATE SOD 100 MG CAP PO PRN (21:51)
--- NOTE | 2025-03-07 23:49 | DVHPN2 ---
Progress Note - Dictate Date Seen: Mar 07, 2025 Medical Necessity Reason Pt with a Central, PICC or Fol: No Subjective Patient was seen and evaluated in follow up. Patient is complaining of a migraine headache. 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 CT head showed no acute intracranial abnormality. Telemetry reviewed. vital signs Vital Sign Date Time Temp Pulse Resp B/P (MAP) Pulse Ox O2 Delivery O2 Flow Rate FiO2 03/07/25 08:50 98.3 67 18 107/67 (80) 97 98.3 03/07/25 08:00 Room Air* 0 21 Total Intake and Output 03/06/25 03/06/25 03/07/25 15:00 23:00 07:00 Intake Total 1200 ml 400 ml Balance 1200 ml 400 ml medications Current Medications Medications Dose Ordered Sig/[place] Route Start Time Stop Time Status Last Admin Dose Admin Aspirin 81 mg DAILY PO 03/03/25 10:00 03/07/25 10:13 81 MG Clonidine HCl 0.1 mg Q4HP PRN PO 03/02/25 20:45 Multivit/Ca Carb/ B Cmplx/FA/Prenat 1 tab DAILY PO 03/03/25 10:00 03/07/25 10:13 1 TAB Sevelamer HCl 800 mg TIDWM PO 03/03/25 08:00 03/07/25 10:12 800 MG Sodium Chloride 10 ml Q8HR IV 03/02/25 22:00 03/07/25 06:00 10 ML Acetaminophen/ Hydrocodone Bitart 1 tab Q4HP PRN PO 03/02/25 20:45 03/04/25 22:56 1 TAB Ondansetron HCl 4 mg Q4HP PRN IV 03/02/25 20:45 Docusate Sodium 100 mg BIDPRN PRN PO 03/02/25 20:45 Acetaminophen 650 mg Q6HP PRN PO 03/02/25 20:45 Nitroglycerin 0.4 mg Q5MINP PRN SL 03/02/25 22:00 Morphine Sulfate 2 mg Q30M PRN IV 03/02/25 22:00 Oxycodone/ Acetaminophen 2 tab Q4HP PRN PO 03/03/25 01:30 03/07/25 10:14 2 TAB Metoprolol Tartrate 12.5 mg TID PO 03/03/25 22:00 03/07/25 06:01 12.5 MG Epoetin Gamal-epbx 10,000 unit MWF@2100 SC 03/06/25 21:00 03/06/25 22:50 10,000 UNIT Lorazepam 1 mg Q8HP PRN PO 03/06/25 10:30 03/07/25 10:13 1 MG objective GENERAL: Alert and oriented x 3. No acute distress. EYES: PERRL, EOMI. Anicteric. HENT: Moist mucous membranes. LUNGS: Clear to auscultation bilaterally. CARDIOVASCULAR: Regular rate and rhythm. Systolic murmur grade V/. ABDOMEN: Soft, nontender and nondistended. EXTREMITIES: No edema. NEUROLOGIC: No focal neurological deficits. SKIN: Warm, dry. laboratory and microbiology Laboratory Tests 03/07/25 06:18 Test 03/07/25 06:18 Range/Units Serum Glucose 94 74-106 mg/dL Problem List Chest pain, rule out coronary ischemia. Rule out structural heart disease. Narrow complex tachycardia, likely atrial flutter, now normal sinus rhythm. Hypertension. Paroxysmal atrial fibrillation (off NOAC due to severe anemia requiring PRBC's). End-stage renal disease on hemodialysis. Acute on chronic anemia. CVA without residual deficits. Thyroid disease. Assessment/Plan Continued all current supportive medical care. Oxycodone and [place] for pain. Aspirin, Metoprolol. Clonidine. Nitro SL. Additional plan as per the hospital course. Plan discussed with: Patient NISREEN OWEN MD Mar 07, 2025 11:30
[2025-03-08] VITALS (8 sets, daily range): BP systolic 101–154; BP diastolic 66–94; PULSE 62–84; RESP 15–20; TEMP 97.7–98.4; O2SAT 94–100
[2025-03-08 07:12] LABS: Basophils # (auto) 0 10 ^3/uL (0-0.2); Basophils % (auto) 0.6 % (0.0-2.0); Eosinophils # (auto) 0.5 10 ^3/uL (0-0.8); Eosinophils % (auto) 11.5 % (0.0-7.0); Hematocrit 31.2 % (36.0-46.0); Hemoglobin 10.5 g/dL (12.2-16.2); Lymphocytes # (auto) 1.2 10 ^3/uL (0.4-5.4); Lymphocytes % (auto) 29.9 % (10.0-50.0); Mean Corpuscular Hgb Conc. 33.5 g/dL (32.0-36.0); Mean Corpuscular Volume 86.4 fL (80.0-100.0); Monocytes # (auto) 0.3 10 ^3/uL (0-1.3); Monocytes % (auto) 7.9 % (0.0-12.0); Neutrophils % (auto) 50.1 % (37.0-80.0); Nucleated Red Blood Cells % 0.4 %; Platelet Count (auto) 244 10^3/uL (140-450); Red Blood Cells 3.61 10^6/uL (4.0-5.20); Red Cell Distribution Width 16.6 % (11.8-14.3)
[2025-03-08 07:26] LABS: Albumin 3.9 g/dL (3.2-4.8); Anion Gap 15 (5-15); BUN/Creatinine Ratio 6.6 (10.0-20.0); Calcium 9.1 mg/dL (8.7-10.4); Carbon Dioxide 23 mmol/L (20-31); Glucose 92 mg/dL (74-106); Potassium 4.8 mmol/L (3.5-5.1); Total Protein 7.3 g/dL (5.7-8.2)
[2025-03-08 07:27] LABS: Aspartate Aminotransferase 15 U/L (<34)
[2025-03-08 07:34] LABS: Alanine Aminotransferase < 9 U/L (7-40); Alkaline Phosphatase 782 U/L (46-116); Bilirubin, Total < 0.2 mg/dL (0.2-1.0); Blood Urea Nitrogen 50 mg/dL (9-23); Chloride 95 mmol/L (98-107); Sodium 133 mmol/L (136-145)
--- NOTE | 2025-03-08 10:21 | DVHPN2 ---
Progress Note Date Seen: Mar 08, 2025 Medical Necessity Reason Pt with a Central, PICC or Fol: No Objective vital signs Vital Sign Date Time Temp Pulse Resp B/P (MAP) Pulse Ox O2 Delivery O2 Flow Rate FiO2 03/08/25 07:46 98.4 73 18 154/94 (114) 99 98.4 03/07/25 20:00 Room Air* 0 21 Total Intake and Output 03/07/25 03/07/25 03/08/25 15:00 23:00 07:00 Intake Total 860 ml 550 ml Balance 860 ml 550 ml medications Current Medications Medications Dose Ordered Sig/[place] Route Start Time Stop Time Status Last Admin Dose Admin Aspirin 81 mg DAILY PO 03/03/25 10:00 03/08/25 09:23 81 MG Clonidine HCl 0.1 mg Q4HP PRN PO 03/02/25 20:45 Multivit/Ca Carb/ B Cmplx/FA/Prenat 1 tab DAILY PO 03/03/25 10:00 03/08/25 09:23 1 TAB Sevelamer HCl 800 mg TIDWM PO 03/03/25 08:00 03/08/25 09:25 800 MG Sodium Chloride 10 ml Q8HR IV 03/02/25 22:00 03/08/25 06:23 10 ML Acetaminophen/ Hydrocodone Bitart 1 tab Q4HP PRN PO 03/02/25 20:45 03/04/25 22:56 1 TAB Ondansetron HCl 4 mg Q4HP PRN IV 03/02/25 20:45 Docusate Sodium 100 mg BIDPRN PRN PO 03/02/25 20:45 03/07/25 21:51 100 MG Acetaminophen 650 mg Q6HP PRN PO 03/02/25 20:45 Nitroglycerin 0.4 mg Q5MINP PRN SL 03/02/25 22:00 Morphine Sulfate 2 mg Q30M PRN IV 03/02/25 22:00 Oxycodone/ Acetaminophen 2 tab Q4HP PRN PO 03/03/25 01:30 03/08/25 09:25 2 TAB Metoprolol Tartrate 12.5 mg TID PO 03/03/25 22:00 03/08/25 06:23 12.5 MG Epoetin Gamal-epbx 10,000 unit MWF@2100 SC 03/06/25 21:00 03/06/25 22:50 10,000 UNIT Lorazepam 1 mg Q8HP PRN PO 03/06/25 10:30 03/08/25 06:21 1 MG Examination: GENERAL:Normal, CVS:Normal, SKIN:Normal laboratory and microbiology Laboratory Tests 03/08/25 06:11 Test 03/08/25 06:11 Range/Units Serum Glucose 92 74-106 mg/dL Microbiology Date/Time Source Procedure Growth Status 03/03/25 00:46 Nose MRSA Screen - Final Complete Problem List/Assessment/Plan Problem List/Assessment/Plan ESRD on HD, former DDRT HTN Chest pain 2cm complex right kidney lesion cyst vs mass. MRI without contrast was inconclusive . Patient cannot receive gadolinium due to ESRD. Obtain CT contrast renal protocol if further scan needed. then will do HD after stress test negative Strict I&Os Renal diet Blood pressure control Cardiology following [facility] Plan discussed with: Patient DESTINY QUILES MD Mar 08, 2025 10:21
--- NOTE | 2025-03-08 10:56 | DVHPN2 ---
Reviewed: Care Plan, H&P, Labs, Medications, Previous Orders, Radiology Changes from previous H/P or p: No Changes Eyes: No Pain, No Vision change, No Conjunctivae inflammation, No Eyelid inflammation, No Other, No Redness ENT: No Ear pain, No Ear discharge, No Nose pain, No Nose discharge, No Nose congestion, No Mouth pain, No Mouth swelling, No Throat pain, No Throat swelling, No Other Cardiovascular: Chest Pain; No Palpitations, No Orthopnea, No Paroxysmal Noc. Dyspnea, No Edema; Lt Headedness; No Other Respiratory: No Cough, No Dry; Shortness of breath; No SOB with excertion, No Wheezing, No Hemoptysis, No Pleuritic Pain, No Sputum, No Other Gastrointestinal: No Nausea, No Vomiting, No Abdominal Pain, No Diarrhea, No Constipation, No Melena, No Hematochezia, No Other Genitourinary: No Dysuria, No Frequency, No Incontinence, No Hematuria, No Retention, No Other Musculoskeletal: No other, No neck pain, No shoulder pain, No arm pain, No back pain, No hand pain, No leg pain, No foot pain Skin: No Rash, No Lesions, No Jaundice, No Bruising, No Other Objective Vitals Vital Signs Date Time Temp Pulse Resp B/P (MAP) Pulse Ox O2 Delivery O2 Flow Rate FiO2 03/08/25 07:46 98.4 73 18 154/94 (114) 99 98.4 03/07/25 20:00 Room Air* 0 21 Intake/Output Intake and Output 03/08/25 07:00 Intake Total 1410 ml Balance 1410 ml Intake Oral 1410 ml # Voids 4 # Bowel Movements 2 Medications Current Medications Medications Dose Ordered Sig/[place] Route Start Time Stop Time Status Last Admin Dose Admin Aspirin 81 mg DAILY PO 03/03/25 10:00 03/08/25 09:23 81 MG Clonidine HCl 0.1 mg Q4HP PRN PO 03/02/25 20:45 Multivit/Ca Carb/ B Cmplx/FA/Prenat 1 tab DAILY PO 03/03/25 10:00 03/08/25 09:23 1 TAB Sevelamer HCl 800 mg TIDWM PO 03/03/25 08:00 03/08/25 09:25 800 MG Sodium Chloride 10 ml Q8HR IV 03/02/25 22:00 03/08/25 06:23 10 ML Acetaminophen/ Hydrocodone Bitart 1 tab Q4HP PRN PO 03/02/25 20:45 03/04/25 22:56 1 TAB Ondansetron HCl 4 mg Q4HP PRN IV 03/02/25 20:45 Docusate Sodium 100 mg BIDPRN PRN PO 03/02/25 20:45 03/07/25 21:51 100 MG Acetaminophen 650 mg Q6HP PRN PO 03/02/25 20:45 Nitroglycerin 0.4 mg Q5MINP PRN SL 03/02/25 22:00 Morphine Sulfate 2 mg Q30M PRN IV 03/02/25 22:00 Oxycodone/ Acetaminophen 2 tab Q4HP PRN PO 03/03/25 01:30 03/08/25 09:25 2 TAB Metoprolol Tartrate 12.5 mg TID PO 03/03/25 22:00 03/08/25 06:23 12.5 MG Epoetin Gamal-epbx 10,000 unit MWF@2100 SC 03/06/25 21:00 03/06/25 22:50 10,000 UNIT Lorazepam 1 mg Q8HP PRN PO 03/06/25 10:30 03/08/25 06:21 1 MG Laboratory Results Laboratory Tests 03/08/25 06:11 Chemistry Test 03/08/25 06:11 Albumin 3.9 g/dL (3.2-4.8) Calcium Level 9.1 mg/dL (8.7-10.4) Total Protein 7.3 g/dL (5.7-8.2) LFT Test 03/08/25 06:11 Alanine Aminotransferase (ALT) < 9 U/L (7-40) Alkaline Phosphatase 782 U/L (46-116) H Aspartate Amino Transferase (AST) 15 U/L (<34) Total Bilirubin < 0.2 mg/dL (0.2-1.0) L Microbiology Microbiology Date/Time Source Procedure Growth Status 03/03/25 00:46 Nose MRSA Screen - Final Complete Labs and/or images reviewed: Labs reviewed by me, Image(s) reviewed by me Assessment/Plan Assessment/Plan Narrow complex tachycardia Acute chest pain: Coronary artery disease ruled out, Troponin negative x3 Consult for Cardiology Dr. Clements, Echocardiogram 60 % ejection fraction Cardiolite stress test negative Paroxysmal AFib not on any blood thinners secondary to severe anemia requiring blood transfusion ESRD on hemodialysis consult for Dr. Graham group patient receiving hemodialysis History of CVA without residual deficits Status post right total knee replacement at [facility] 09/17/2023: History of right shoulder rotator cuff tear Chronic neck pain: 2cm complex right kidney lesion cyst vs mass. MRI without contrast was inconclusive . Patient cannot receive gadolinium due to ESRD.Dr Matos ordered CT contrast renal protocol. Secondary hyperparathyroidism Hypertension: Continue home medication amlodipine and clonidine Generalized weakness secondary to uremia Anemia secondary to chronic kidney disease Anxiety: Continue Ativan Right-sided headache: CT head negative Time spent 50 minutes Physical therapy ordered Plan discussed with: Patient My Orders Orders - CAYLA HERNANDEZ MD Procedure Category Date Status Time Ls Spine Wo Contrast CT 03/07/25 Resulted 11:13 * Coverage Analyst CONS 03/07/25 Transmitted Consult Discharge DISCHARGE 03/07/25 Transmitted 11:18 Lumbar Spine Wo MRI 03/07/25 Resulted Contrast 12:56 Communication Order ORDERS 03/07/25 Transmitted 12:58 Mri Abdomen No MRI 03/07/25 Resulted Contrast 12:56 Date of Service: Mar 08, 2025 Billing Provider: CAYLA HERNANDEZ MD Common Visit Codes: [id number] INP/OBS CARE(HIGH) CAYLA HERNANDEZ MD Mar 08, 2025 10:55
[2025-03-08] MEDS ORDERED: IOHEXOL 300 MG/ML 100ML BOTTLE IJ ONE (11:24)
[2025-03-08] MEDS ORDERED: SODIUM CHL 0.9% 1000 ML BAG XX ONE (11:45)
--- NOTE | 2025-03-08 12:41 | DVH ---
Exam: CT CT AB PELVIS W WO CON-IV ONLY History: RENAL MASS VS COMPLEX CYST Comparison Study: None Technique: Multidetector spiral CT of the abdomen and pelvis was performed from lung bases to pubic s ymphysis. Initial imaging was done without IV contrast, followed by post contrast images of the abdom en and pelvis. Intravenous contrast was administered during this examination. Multiphase renal mass i maging protocol imaging was obtained. Axial, coronal and sagittal multiplanar reformats were performe d by the technologist on a separate workstation. Radiation Dose : CT Dose: CTDI volume is 14.28 mGy. Dose-length product is 1729.72 mGy*cm Findings: Lung Bases: No acute or significant lung base finding. Normal heart size. No pleural or pericardial effusion. Liver: The liver is normal in size. No focal lesions. Normal hepatic vascular enhancement. Gallbladder and Biliary Tree: Unremarkable Spleen: Unremarkable Pancreas: The pancreas is normal in appearance without focal lesions or abnormal enhancement. Adrenal Glands: Unremarkable Kidneys: Bilateral renal atrophy. Indeterminate right midpole lesion measures 2.2 cm. Bladder: Unremarkable Bowel: The stomach is grossly normal in appearance. Diverticulosis. Moderate volume colonic stool. T he appendix is not visualized; however, no secondary findings of acute appendicitis identified. Ascites: Absent Lymphadenopathy: No mesenteric, retroperitoneal or periportal lymphadenopathy. Abdominal Wall and Mesentery: 5.5 cm structure in the left lower quadrant associated with the left ex ternal iliac artery. This may represent a hematoma. Vasculature: The visualized abdominal aorta is normal in size and caliber. Abdominal and pelvic vess els demonstrate normal enhancement. Pelvic Organs: Unremarkable Musculoskeletal: No aggressive focal bony lesions, acute fractures or dislocation. Bilateral hip arth roplasty. Diffuse osteopenia. 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 Bilateral hip arthroplasty. IMPRESSION: Bilateral renal atrophy. Indeterminate right midpole lesion measures 2.2 cm. This demonstrates equivocal enhancement and no wa shout. Differential considerations could include hemorrhagic/proteinaceous cyst or possible renal le jones. This can be better evaluated with MRI renal mass protocol without and with intravenous contrast if clinically indicated. Indeterminate mass in the left lower quadrant closely associated with the left external iliac artery possibly representing a chronic thrombosed hematoma measuring 5.5 cm.
--- NOTE | 2025-03-08 13:24 | DVHPN2 ---
Progress Note - Dictate Date Seen: Mar 08, 2025 Medical Necessity Reason Pt with a Central, PICC or Fol: No Subjective Patient was seen and evaluated in follow up. Patient remains with a migraine headache. Abdominal MRI revealed right renal complex lesion measuring 2 cm with intermediateT2 signal and increased T1 signal, could represent hemorrhagic/proteinaceous cyst however again a renal neoplasm can not be ruled out. Multiple pancreatic T2 bright lesions measuring up to 10 mm with differential considerations including pancreatic cyst, pseudocyst, IPMN, cystic neoplasm. Renal parenchymal atrophy and cystic disease. MRI L-Spine demonstrated [id number] lumbar degenerative disc disease . Diffusely decreased marrow signal within the thoracolumbar spine, sacrum, likely secondary to renal osteodystrophy/marrow replacement.No high-grade spinal canal stenosis. [id number] multilevel neural foraminal stenosis as described. No evidence for infection/ discitis/osteomyelitis. Large calcified stool ball / stricture in the sigmoid colon as previously described. Complex right renal lesion. CT abd/pel: bilateral renal atrophy. Indeterminate right midpole lesion measures 2.2 cm. This demonstrates equivocal enhancement and no washout. Indeterminate mass in the left lower quadrant closely associated with the left external iliac artery possibly representing a chronic thrombosed hematoma measuring 5.5 cm. Telemetry reviewed. vital signs Vital Sign Date Time Temp Pulse Resp B/P (MAP) Pulse Ox O2 Delivery O2 Flow Rate FiO2 03/08/25 07:46 98.4 73 18 154/94 (114) 99 98.4 03/07/25 20:00 Room Air* 0 21 Total Intake and Output 03/07/25 03/07/25 03/08/25 15:00 23:00 07:00 Intake Total 860 ml 550 ml Balance 860 ml 550 ml medications Current Medications Medications Dose Ordered Sig/[place] Route Start Time Stop Time Status Last Admin Dose Admin Aspirin 81 mg DAILY PO 03/03/25 10:00 03/08/25 09:23 81 MG Clonidine HCl 0.1 mg Q4HP PRN PO 03/02/25 20:45 Multivit/Ca Carb/ B Cmplx/FA/Prenat 1 tab DAILY PO 03/03/25 10:00 03/08/25 09:23 1 TAB Sevelamer HCl 800 mg TIDWM PO 03/03/25 08:00 03/08/25 11:52 800 MG Sodium Chloride 10 ml Q8HR IV 03/02/25 22:00 03/08/25 06:23 10 ML Acetaminophen/ Hydrocodone Bitart 1 tab Q4HP PRN PO 03/02/25 20:45 03/04/25 22:56 1 TAB Ondansetron HCl 4 mg Q4HP PRN IV 03/02/25 20:45 Docusate Sodium 100 mg BIDPRN PRN PO 03/02/25 20:45 03/07/25 21:51 100 MG Acetaminophen 650 mg Q6HP PRN PO 03/02/25 20:45 Nitroglycerin 0.4 mg Q5MINP PRN SL 03/02/25 22:00 Morphine Sulfate 2 mg Q30M PRN IV 03/02/25 22:00 Oxycodone/ Acetaminophen 2 tab Q4HP PRN PO 03/03/25 01:30 03/08/25 09:25 2 TAB Metoprolol Tartrate 12.5 mg TID PO 03/03/25 22:00 03/08/25 06:23 12.5 MG Epoetin Gamal-epbx 10,000 unit MWF@2100 SC 03/06/25 21:00 03/06/25 22:50 10,000 UNIT Lorazepam 1 mg Q8HP PRN PO 03/06/25 10:30 03/08/25 06:21 1 MG objective GENERAL: Alert and oriented x 3. No acute distress. EYES: PERRL, EOMI. Anicteric. HENT: Moist mucous membranes. LUNGS: Clear to auscultation bilaterally. CARDIOVASCULAR: Regular rate and rhythm. Systolic murmur grade V/. ABDOMEN: Soft, nontender and nondistended. EXTREMITIES: No edema. NEUROLOGIC: No focal neurological deficits. SKIN: Warm, dry. laboratory and microbiology Laboratory Tests 03/08/25 06:11 Test 03/08/25 06:11 Range/Units Serum Glucose 92 74-106 mg/dL Problem List Chest pain, rule out coronary ischemia. Rule out structural heart disease. Narrow complex tachycardia, likely atrial flutter, now normal sinus rhythm. Hypertension. Paroxysmal atrial fibrillation (off NOAC due to severe anemia requiring PRBC's). End-stage renal disease on hemodialysis. Acute on chronic anemia. CVA without residual deficits. Thyroid disease. Assessment/Plan Continued all current supportive medical care. Oxycodone and [place] for pain. Aspirin, Metoprolol. Clonidine. Nitro SL. Additional plan as per the hospital course. Plan discussed with: Patient NISREEN OWEN MD Mar 08, 2025 12:11
[2025-03-08] MEDS: ONDANSETRON HCL 4 MG/2 ML VIAL IV PRN (18:30)
[2025-03-09 01:00] VITALS: BP 129/71; PULSE 96; RESP 18; TEMP 97.9; O2SAT 100
[2025-03-09 05:00] VITALS: BP 137/86; PULSE 75; RESP 18; TEMP 99.1; O2SAT 99
[2025-03-09 06:20] LABS: Basophils # (auto) 0 10 ^3/uL (0-0.2); Basophils % (auto) 0.7 % (0.0-2.0); Eosinophils # (auto) 0.4 10 ^3/uL (0-0.8); Hematocrit 30.1 % (36.0-46.0); Lymphocytes # (auto) 1.2 10 ^3/uL (0.4-5.4); Lymphocytes % (auto) 30.2 % (10.0-50.0); Mean Corpuscular Hemoglobin 28.8 pg (28.0-32.0); Mean Corpuscular Hgb Conc. 33.3 g/dL (32.0-36.0); Mean Corpuscular Volume 86.6 fL (80.0-100.0); Monocytes # (auto) 0.4 10 ^3/uL (0-1.3); Monocytes % (auto) 8.9 % (0.0-12.0); Neutrophils % (auto) 50.2 % (37.0-80.0); Nucleated Red Blood Cells % 0.1 %; Platelet Count (auto) 242 10^3/uL (140-450); Red Blood Cells 3.48 10^6/uL (4.0-5.20); Red Cell Distribution Width 16.5 % (11.8-14.3); White Blood Cell 4.1 10^3/uL (4.4-10.8)
[2025-03-09 06:39] LABS: Albumin 3.8 g/dL (3.2-4.8); Anion Gap 11 (5-15); Aspartate Aminotransferase 17 U/L (<34); BUN/Creatinine Ratio 4.7 (10.0-20.0); Blood Urea Nitrogen 22 mg/dL (9-23); Calcium 9.9 mg/dL (8.7-10.4); Carbon Dioxide 27 mmol/L (20-31); Glucose 98 mg/dL (74-106); Potassium 4.6 mmol/L (3.5-5.1); Sodium 135 mmol/L (136-145); Total Protein 7.2 g/dL (5.7-8.2)
[2025-03-09 06:40] LABS: Alanine Aminotransferase < 9 U/L (7-40); Alkaline Phosphatase 783 U/L (46-116); Bilirubin, Total < 0.2 mg/dL (0.2-1.0); Chloride 97 mmol/L (98-107)
[2025-03-09 08:00] VITALS: PULSE 73; RESP 16; O2SAT 98
[2025-03-09 09:00] VITALS: BP 118/73; PULSE 73; RESP 16; TEMP 98.4; O2SAT 98
--- NOTE | 2025-03-09 10:22 | DVHPN2 ---
Reviewed: Care Plan, H&P, Labs, Medications, Previous Orders, Radiology Changes from previous H/P or p: No Changes Eyes: No Pain, No Vision change, No Conjunctivae inflammation, No Eyelid inflammation, No Other, No Redness ENT: No Ear pain, No Ear discharge, No Nose pain, No Nose discharge, No Nose congestion, No Mouth pain, No Mouth swelling, No Throat pain, No Throat swelling, No Other Cardiovascular: Chest Pain; No Palpitations, No Orthopnea, No Paroxysmal Noc. Dyspnea, No Edema; Lt Headedness; No Other Respiratory: No Cough, No Dry; Shortness of breath; No SOB with excertion, No Wheezing, No Hemoptysis, No Pleuritic Pain, No Sputum, No Other Gastrointestinal: No Nausea, No Vomiting, No Abdominal Pain, No Diarrhea, No Constipation, No Melena, No Hematochezia, No Other Genitourinary: No Dysuria, No Frequency, No Incontinence, No Hematuria, No Retention, No Other Musculoskeletal: No other, No neck pain, No shoulder pain, No arm pain, No back pain, No hand pain, No leg pain, No foot pain Skin: No Rash, No Lesions, No Jaundice, No Bruising, No Other Objective Vitals Vital Signs Date Time Temp Pulse Resp B/P (MAP) Pulse Ox O2 Delivery O2 Flow Rate FiO2 03/09/25 09:00 98.4 73 16 118/73 (88) 98 98.4 03/09/25 08:00 Room Air* 0 21 Intake/Output Intake and Output 03/09/25 07:00 Intake Total 520 ml Balance 520 ml Intake Oral 520 ml Medications Current Medications Medications Dose Ordered Sig/[place] Route Start Time Stop Time Status Last Admin Dose Admin Aspirin 81 mg DAILY PO 03/03/25 10:00 03/09/25 09:00 81 MG Clonidine HCl 0.1 mg Q4HP PRN PO 03/02/25 20:45 Multivit/Ca Carb/ B Cmplx/FA/Prenat 1 tab DAILY PO 03/03/25 10:00 03/09/25 08:55 1 TAB Sevelamer HCl 800 mg TIDWM PO 03/03/25 08:00 03/09/25 08:55 800 MG Sodium Chloride 10 ml Q8HR IV 03/02/25 22:00 03/09/25 06:00 10 ML Acetaminophen/ Hydrocodone Bitart 1 tab Q4HP PRN PO 03/02/25 20:45 03/04/25 22:56 1 TAB Ondansetron HCl 4 mg Q4HP PRN IV 03/02/25 20:45 03/08/25 18:30 4 MG Docusate Sodium 100 mg BIDPRN PRN PO 03/02/25 20:45 03/07/25 21:51 100 MG Acetaminophen 650 mg Q6HP PRN PO 03/02/25 20:45 Nitroglycerin 0.4 mg Q5MINP PRN SL 03/02/25 22:00 Morphine Sulfate 2 mg Q30M PRN IV 03/02/25 22:00 Oxycodone/ Acetaminophen 2 tab Q4HP PRN PO 03/03/25 01:30 03/09/25 10:17 2 TAB Metoprolol Tartrate 12.5 mg TID PO 03/03/25 22:00 03/09/25 05:34 12.5 MG Epoetin Gamal-epbx 10,000 unit MWF@2100 SC 03/06/25 21:00 03/08/25 21:44 10,000 UNIT Lorazepam 1 mg Q8HP PRN PO 03/06/25 10:30 03/08/25 06:21 1 MG Laboratory Results Laboratory Tests 03/09/25 05:57 Chemistry Test 03/09/25 05:57 Albumin 3.8 g/dL (3.2-4.8) Calcium Level 9.9 mg/dL (8.7-10.4) Total Protein 7.2 g/dL (5.7-8.2) LFT Test 03/09/25 05:57 Alanine Aminotransferase (ALT) < 9 U/L (7-40) Alkaline Phosphatase 783 U/L (46-116) H Aspartate Amino Transferase (AST) 17 U/L (<34) Total Bilirubin < 0.2 mg/dL (0.2-1.0) L Microbiology Microbiology Date/Time Source Procedure Growth Status 03/03/25 00:46 Nose MRSA Screen - Final Complete Labs and/or images reviewed: Labs reviewed by me, Image(s) reviewed by me Assessment/Plan Assessment/Plan Narrow complex tachycardia Acute chest pain: Coronary artery disease ruled out, Troponin negative x3 Consult for Cardiology Dr. Clements, Echocardiogram 60 % ejection fraction Cardiolite stress test negative Paroxysmal AFib not on any blood thinners secondary to severe anemia requiring blood transfusion ESRD on hemodialysis consult for Dr. Santos alanis patient receiving hemodialysis History of CVA without residual deficits Status post right total knee replacement at [facility] 09/17/2023: History of right shoulder rotator cuff tear Chronic neck pain: 2cm complex right kidney lesion cyst vs mass. MRI without contrast was inconclusive . Patient cannot receive gadolinium due to ESRD.Dr Matos ordered CT contrast renal protocol. Secondary hyperparathyroidism Hypertension: Continue home medication amlodipine and clonidine Generalized weakness secondary to uremia Anemia secondary to chronic kidney disease Anxiety: Continue Ativan Right-sided headache: CT head negative Patient is being discharged to [facility] today Plan discussed with: Patient My Orders Orders - CAYLA HERNANDEZ MD Procedure Category Date Status Time Discharge DISCHARGE 03/08/25 Transmitted 17:50 Date of Service: Mar 09, 2025 Billing Provider: CAYLA HERNANDEZ MD Common Visit Codes: [id number] INP/OBS CARE(HIGH) CAYLA HERNANDEZ MD Mar 09, 2025 10:22
--- NOTE | 2025-03-09 18:49 | DVHPN2 ---
Progress Note - Dictate Date Seen: Mar 09, 2025 Medical Necessity Reason Pt with a Central, PICC or Fol: No Subjective Patient was seen and evaluated in follow up. Patient has no new complaints at this time. Patient denies any cardiac symptoms. Patient is cardiac stable for discharge. Telemetry reviewed. vital signs Vital Sign Date Time Temp Pulse Resp B/P (MAP) Pulse Ox O2 Delivery O2 Flow Rate FiO2 03/09/25 09:00 98.4 73 16 118/73 (88) 98 98.4 03/09/25 08:00 Room Air* 0 21 Total Intake and Output 03/08/25 03/08/25 03/09/25 14:59 22:59 06:59 Intake Total 520 ml 0 ml Balance 520 ml 0 ml medications Current Medications Medications Dose Ordered Sig/[place] Route Start Time Stop Time Status Last Admin Dose Admin Aspirin 81 mg DAILY PO 03/03/25 10:00 03/09/25 09:00 81 MG Clonidine HCl 0.1 mg Q4HP PRN PO 03/02/25 20:45 Multivit/Ca Carb/ B Cmplx/FA/Prenat 1 tab DAILY PO 03/03/25 10:00 03/09/25 08:55 1 TAB Sevelamer HCl 800 mg TIDWM PO 03/03/25 08:00 03/09/25 08:55 800 MG Sodium Chloride 10 ml Q8HR IV 03/02/25 22:00 03/09/25 06:00 10 ML Acetaminophen/ Hydrocodone Bitart 1 tab Q4HP PRN PO 03/02/25 20:45 03/04/25 22:56 1 TAB Ondansetron HCl 4 mg Q4HP PRN IV 03/02/25 20:45 03/08/25 18:30 4 MG Docusate Sodium 100 mg BIDPRN PRN PO 03/02/25 20:45 03/07/25 21:51 100 MG Acetaminophen 650 mg Q6HP PRN PO 03/02/25 20:45 Nitroglycerin 0.4 mg Q5MINP PRN SL 03/02/25 22:00 Morphine Sulfate 2 mg Q30M PRN IV 03/02/25 22:00 Oxycodone/ Acetaminophen 2 tab Q4HP PRN PO 03/03/25 01:30 03/09/25 10:17 2 TAB Metoprolol Tartrate 12.5 mg TID PO 03/03/25 22:00 03/09/25 05:34 12.5 MG Epoetin Gamal-epbx 10,000 unit MWF@2100 SC 03/06/25 21:00 03/08/25 21:44 10,000 UNIT Lorazepam 1 mg Q8HP PRN PO 03/06/25 10:30 03/09/25 10:27 1 MG objective GENERAL: Alert and oriented x 3. No acute distress. EYES: PERRL, EOMI. Anicteric. HENT: Moist mucous membranes. LUNGS: Clear to auscultation bilaterally. CARDIOVASCULAR: Regular rate and rhythm. Systolic murmur grade V/. ABDOMEN: Soft, nontender and nondistended. EXTREMITIES: No edema. NEUROLOGIC: No focal neurological deficits. SKIN: Warm, dry. laboratory and microbiology Laboratory Tests 03/09/25 05:57 Test 03/09/25 05:57 Range/Units Serum Glucose 98 74-106 mg/dL Problem List Chest pain, rule out coronary ischemia. Rule out structural heart disease. Narrow complex tachycardia, likely atrial flutter, now normal sinus rhythm. Hypertension. Paroxysmal atrial fibrillation (off NOAC due to severe anemia requiring PRBC's). End-stage renal disease on hemodialysis. Acute on chronic anemia. CVA without residual deficits. Thyroid disease. Assessment/Plan Continued all current supportive medical care. Oxycodone and [place] for pain. Aspirin, Metoprolol. Clonidine. Nitro SL. Additional plan as per the hospital course. Plan discussed with: Patient NISREEN OWEN MD Mar 09, 2025 11:17
== END 2025-03-09 11:30 | DRG 308 ==
LOC: EDUNIT# 13:41 → EDBD 13:41 → ER 13:41 → OVERFLOW 21:57 → TELE-EAST 21:58
PROVIDERS: ADMIT Family Medicine; ATTEND Family Medicine
PROC: 5A1D70Z Performance of Urinary Filtration, Intermittent, Less than 6 Hours Per Day (ICD-10-PCS; principal; 2025-03-04)
PROC: 5A1D70Z Performance of Urinary Filtration, Intermittent, Less than 6 Hours Per Day (ICD-10-PCS; 2025-03-06)
DX: I48.0 Paroxysmal atrial fibrillation (principal); N18.6 End stage renal disease; I12.0 Hypertensive chronic kidney disease with stage 5 chronic kidney disease or end stage renal disease; I47.10 Supraventricular tachycardia, unspecified; F41.9 Anxiety disorder, unspecified; E07.9 Disorder of thyroid, unspecified; G43.909 Migraine, unspecified, not intractable, without status migrainosus; G89.29 Other chronic pain; Z20.822 Contact with and (suspected) exposure to COVID-19; M54.2 Cervicalgia; D63.1 Anemia in chronic kidney disease; Z96.651 Presence of right artificial knee joint; E21.1 Secondary hyperparathyroidism, not elsewhere classified; Z79.891 Long term (current) use of opiate analgesic; Z79.899 Other long term (current) drug therapy; Z86.73 Personal history of transient ischemic attack (TIA), and cerebral infarction without residual deficits; Z98.891 History of uterine scar from previous surgery; Z99.2 Dependence on renal dialysis
CPT/HCPCS: 36415; 70450; 71045; 72131; 72148; 74178; 74181; 78452; 80048; 80053; 80061; 82728; 83036; 83540; 83550; 83735; 83880; 84100; 84443; 84484; 85025; 87081; 87426; 90935; 93005; 93017; 93306; 97163; G0378; J1642; J2405

== ENCOUNTER 2025-08-24 17:49 | Emergency (ER) | payer MEDICARE, MEDICAID ==
[~2025-08-24] VITALS: Ht 177.8 cm; Wt 73.0 kg
[~2025-08-24 17:49] MED LIST changes: -AMLO1TAB22 PO; +AMLO1TAB23 PO; +CLON0.1T PO; -CLON0.2T PO; -GABA300T4 PO; +LABE100T7 PO; +TIZA4CAP14 PO
[2025-08-24] MEDS ORDERED: PERCOT PO (19:08)
--- NOTE | 2025-08-24 20:09 | ED.PDOC ---
History of Present Illness HPI Comments 70-year-old female who came to ER for body pains. Patient has chronic pain syndrome. Recently discharged at [facility] but was unable describes her pain medications as he got home (Percocet). Patient coming in complaining of generalized body pains, hoping for a refill her Percocet Chief Complaint: Body Pain Time Seen by MD: 20:09 Primary Care Provider: STEFANY Welch Notes: Nurses Notes Allergies: Coded Allergies: NO KNOWN ALLERGIES (Unverified , 11/04/23) Home Meds Active Scripts Oxycodone W/ Acetaminophen (Percocet 5/325MG) 1 Tab Tb, 1 TAB PO QID PRN, #20 TAB Prov:TITA ALMAGUER MD 08/24/25 Reported Medications Labetalol Hcl (Labetalol Hcl) 100 Mg Tab, 100 MG PO DAILY 03/03/25 Amlodipine Besylate (Amlodipine Besylate) 10 Mg Tab, 1 TAB PO DAILY 03/03/25 Tizanidine HCl (Tizanidine Hydrochloride) 4 Mg Cap, 1 CAP PO Q8HPRN PRN for MUSCLE RELAXANT 03/03/25 Clonidine Hydrochloride (Clonidine Hcl) 0.1 Mg Tab, 1 TAB PO BID 03/03/25 Oxycodone W/ Acetaminophen (Percocet 5/325MG) 1 Tab Tb, PO Q4HP PRN for PAIN SCALE 7 THRU 10, TAB 10/325 MG 11/05/23 Information Source: Patient Mode of Arrival: Wheelchair Past Medical History PAST MEDICAL HISTORY: CKF, CVA, ESRD, HTN Past Medical History (Other): Chronic pain syndrome Surgical History: Surgical History (Other): Bilateral hip surgery, bilateral shoulder surgery, bilateral knee surgery 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 History Family History Family History: Reviewed,noncontributory to illness Social History Smoker: Non-Smoker Alcohol: Denies ETOH Use Drugs: Denies Drug Use Lives In: Home Constitutional: reports: others (Generalized pain); denies: chills, diaphoresis , fatigue, fever, malaise, sweats, weakness EENTM: denies: blurred vision, double vision, ear bleeding, ear discharge, ear drainage, ear pain, ear ringing, eye pain, eye redness, hearing loss, mouth pain, mouth swelling, nasal discharge, nose bleeding, nose congestion, nose pain, photophobia, tearing, throat pain, throat swelling, voice changes, others Respiratory: denies: cough, hemoptysis, orthopnea, SOB at rest, shortness of breath, SOB with excertion, stridor, wheezing, others Cardiovascular: denies: chest pain, dizzy spells, diaphoresis, Dyspnea on exertion, edema, irregular heart beat, left arm pain, lightheadedness, palpitations, PND, syncope, others Gastrointestinal: denies: abdomen distended, abdominal pain, blood streaked bowels, constipated, diarrhea, dysphagia, difficulty swallowing, hematemesis, melena, nausea, poor appetite, poor fluid intake, rectal bleeding, rectal pain, vomiting, others Genitourinary: denies: abnormal vagina bleeding, burning, dyspareunia, dysuria, flank pain, frequency, hematuria, incontinence, pain, , vagina discharge, urgency, others Neurological: denies: dizziness, fainting, headache, left sided numbness, left sided weakness, numbness, paresthesia, pre-existing deficit, right sided numbness, right sided weakness, seizure, speech problems, tingling, tremors, weakness, others Musculoskeletal: denies: back pain, gout, joint pain, joint swelling, muscle pain, muscle stiffness, neck pain, others Integumetry: denies: bruises, change in color, change in hair/nails, dryness, laceration, lesions, lumps, rash, wounds, others Allergic/Immunocompromised: denies: Difficulty Healing, Frequent Infections, Hives, Itching, others Hematologic/Lymphatic: denies: anemia, blood clots, easy bleeding, easy bruising, swollen glands, others Endocrine: denies: excessive hunger, excessive sweating, excessive thirst, excessive urination, flushing, intolerance to cold, intolerance to heat, unexplained weight gain, unexplained weight loss, others Psychiatric: denies: anxiety, bipolar disorder, depression, hopeless, panic disorder, schizophrenia, sleepless, suicidal, others Physical Exam General Appearance: No Apparent Distress, Normal HEENT: Normal ENT Inspection, Pharynx Normal, TMs Normal Neck: Full Range of Motion, Non-Tender, Normal, Normal Inspection Respiratory: Chest Non-Tender, Lungs Clear, No Accessory Muscle Use, No Respiratory Distress, Normal Breath Sounds Cardiovascular: No Edema, No JVD, No Murmur, No Gallop, Normal Peripheral Pulses, Regular Rate/Rhythm Breast Exam: Deferred Gastrointestinal: No Organomegaly, Non Tender, No Pulsatile Mass, Normal Bowel Sounds, Soft Genitalia: Deferred Pelvic: Deferred Rectal: Deferred Extremities: No calf tenderness, Normal capillary refill, Normal inspection, Normal range of motion, Non-tender, No pedal edema Musculoskeletal : Apperance: Normal Neurologic: Alert, axle and frame mechanic II-XII nml as Tested, No Motor Deficits, Normal Affect, Normal Mood, No Sensory Deficits Cerebellar Function: Normal Reflexes: Normal Skin: Dry, Normal Color, Warm Lymphatic: No Adenopathy Was a procedure done? Was a procedure done?: No Differential Dx Considerations may include: Chronic pain syndrome, medication noncompliance X-Ray, Labs, Meds, VS Vital Signs Date Time Temp Pulse Resp B/P (MAP) Pulse Ox O2 Delivery O2 Flow Rate FiO2 08/24/25 21:56 Room Air* 0 21 08/24/25 21:56 98.6 79 14 103/63 (76) 98 98.6 08/24/25 17:56 98.6 91 18 101/75 98 98.6 Time of 1ST Reevaluation: 20:06 Reevaluation 1ST: Unchanged Patient Education/Counseling: Diagnosis, Treatment Family Education/Counseling: Diagnosis, Treatment SEPSIS Sepsis Screen Date sepsis recognized/suspect: Aug 24, 2025 Time Sepsis recognized/suspect: 1756 Recent Procedure: No On Antibiotic Therapy: No Respiratory Rate >20: No Heart Rate >90: Yes Temp<36 C (96.8 F) or >38.3 C: No SBP <90 or MAP <65 mmHG: No New Acute Mental Status Change: No Is the patient on CPAP, BIPAP,: No Vital Signs Date Time Temp Pulse Resp B/P (MAP) Pulse Ox O2 Delivery O2 Flow Rate FiO2 08/24/25 21:56 Room Air* 0 21 08/24/25 21:56 98.6 79 14 103/63 (76) 98 98.6 08/24/25 17:56 98.6 91 18 101/75 98 98.6 Departure 1 Departure Time of Disposition: 22:00 Impression: Primary Impression: Chronic pain Additional Impressions: End-stage renal disease on hemodialysis End-stage renal disease Disposition: HOME / SELF CARE / HOMELESS Condition: Stable Additional Instructions: Follow up with your primary physician Return to the ED for any worsening symptoms or concerns for any worsening symptoms or concerns e-Prescriptions Oxycodone W/ Acetaminophen (Percocet 5/325MG) 1 Tab Tb 1 TAB PO QID PRN, #20 TAB Prov: TITA ALMAGUER MD 08/24/25 Discharged With: Self Critical Care Note Critical Care Time?: No Stability Stability form required: No Heart Score Heart Score: Heart Score Response (Comments) Value History N/A 0 EKG N/A 0 Age N/A 0 Risk Factors N/A 0 Troponin N/A 0 Total 0 I personally scribed for TITA ALMAGUER MD ([email or web address]) on 08/24/25 at 20:09. Electronically submitted by Milad Powers ([email or web address]). TITA ALMAGUER MD Aug 24, 2025 20:09
[2025-08-24 21:56] VITALS: BP 103/63; PULSE 79; RESP 14; TEMP 98.6; O2SAT 98
== END 2025-08-24 21:58 | disposition home or self-care (01) ==
LOC: ER 17:49
DX: I12.0 Hypertensive chronic kidney disease with stage 5 chronic kidney disease or end stage renal disease (principal); N18.6 End stage renal disease; G89.4 Chronic pain syndrome; Z79.899 Other long term (current) drug therapy; Z98.890 Other specified postprocedural states; Z86.73 Personal history of transient ischemic attack (TIA), and cerebral infarction without residual deficits; Z99.2 Dependence on renal dialysis